=== PATIENT | female | born 1930 | race African-American/Black ===

== ENCOUNTER → 2016-09-26 | Emergency (ER) | payer OTHER ==
[~2016-09-26] MED LIST: ACETAMINOPHEN 325 MG TABLET (FP) ONE; ACETAMINOPHEN 325 MG TABLET (FP) PO ONE; DEXAMETHASONE SOD PHOSPHATE 10 MG/1 ML VIAL IM ONE; DEXAMETHASONE SOD PHOSPHATE 10 MG/1 ML VIAL IVPB ONE; DEXAMETHASONE SOD PHOSPHATE 10 MG/1 ML VIAL ONE; METOCLOPRAMIDE HCL INJECTION 10 MG/2 ML VIAL IVPB ONE; METOCLOPRAMIDE HCL INJECTION 10 MG/2 ML VIAL ONE; SODIUM CHLORIDE 1,000 ML IV SCH
--- NOTE | 2016-09-26 17:59 | PDOC ---
Rapid Medical Evaluation Time Seen by Provider: 09/26/16 17:59 Medical Evaluation: Allergies Allergy/AdvReac Type Severity Reaction Status Date / Time No Known Allergies Allergy Verified 06/09/16 18:07 09/26/16 18:00 Since 1PM today, pt has had headache and eye pain. She took no pain meds. History of CVA 3 years ago. HTN and DM. Lung cancer history, uterine cancer, afib. Pacemaker in place. She will be sent for CT head. She will be ordered tylenol. Her PMD is Mo Singleton.
[2016-09-26 18:03] VITALS: TEMP 98.6; BMI 20.3
--- NOTE | 2016-09-26 19:54 | PDOC ---
History of Present Illness - History of Present Illness Initial Comments: 09/26/16 20:03 The patient is an 86 year old female with a past medical hx of Afib (not on coumadin), Left CVA (residual deficits), hypertension (pacemaker), and uterine cancer (in remission) who presents to the ED complaining of a headache since 1300 this afternoon. The patient notes her headache is localized to the left side of her head. She reports she is having difficulty focusing her eyes. 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 The patient denies any fever, chills, diarrhea, vomiting, nausea. <Anusha Mendes - Last Filed: 09/26/16 22:25> <Estefany Garcia - Last Filed: 09/26/16 23:24> - General Chief Complaint: Headache Stated Complaint: PAIN Time Seen by Provider: 09/26/16 17:59 Past History <Anusha Mendes - Last Filed: 09/26/16 22:25> - Past Medical History Anemia: No Asthma: No Cancer: Yes (UTERINE CA S/P RT) Cardiac Disorders: Yes (AFIB, PPM) CVA: Yes (2013 NO RESIDUAL.) COPD: No CHF: No Dementia: No Diabetes: Yes HTN: Yes Seizures: No Thyroid Disease: No - Surgical History Cardiac Surgery: Yes (PACEMAKER) - Psycho/Social/Smoking Cessation Hx Anxiety: No Suicidal Ideation: No Smoking Status: No Smoking History: Never smoked Have you smoked in the past 12 months: No Number of Cigarettes Smoked Daily: 0 Information on smoking cessation initiated: No Hx Alcohol Use: No Drug/Substance Use Hx: No Substance Use Type: None Hx Substance Use Treatment: No <Estefany Garcia - Last Filed: 09/26/16 23:24> - Past Medical History Allergies/Adverse Reactions: Allergies Allergy/AdvReac Type Severity Reaction Status Date / Time No Known Allergies Allergy Verified 06/09/16 18:07 Home Medications: Ambulatory Orders Losartan Potassium 25 mg PO DAILY 07/31/14 Metformin HCl [Glucophage -] 250 mg PO DAILY 07/31/14 Warfarin Na [Coumadin -] 5 mg PO HS 07/31/14 Amlodipine Besylate [Norvasc -] 10 mg PO DAILY #30 tablet 06/12/16 Metoprolol Tartrate [Lopressor -] 12.5 mg PO BID #30 tablet 06/12/16 Docusate Sodium [Colace -] 100 mg PO BID PRN #0 capsule 06/13/16 Review of Systems - Review of Systems Able to Perform ROS?: Yes Comments:: 09/26/16 20:04 CONSTITUTIONAL: Absent: fever, chills, diaphoresis, generalized weakness, malaise, loss of appetite HEENT: +Difficulty focusing eyes. Absent: rhinorrhea, nasal congestion, throat pain, throat swelling, difficulty swallowing, mouth swelling, ear pain, eye pain CARDIOVASCULAR: Absent: chest pain, syncope, palpitations, irregular heart rate, lightheadedness , peripheral edema RESPIRATORY: Absent: cough, shortness of breath, dyspnea with exertion, orthopnea, wheezing, stridor, hemoptysis GASTROINTESTINAL: Absent: abdominal pain, abdominal distension, nausea, vomiting, diarrhea, constipation, melena, hematochezia GENITOURINARY: Absent: dysuria, frequency, urgency, hesitancy, hematuria, flank pain, genital pain MUSCULOSKELETAL: Absent: myalgia, arthralgia, joint swelling SKIN: Absent: rash, itching, pallor NEUROLOGIC: +Headache. Absent: focal weakness or paresthesias, dizziness, unsteady gait, seizure, mental status changes, bladder or bowel incontinence PSYCHIATRIC: Absent: anxiety, depression, suicidal or homicidal ideation, hallucinations. <Anusha Mendes - Last Filed: 09/26/16 22:25> *Physical Exam - Vital Signs Last Vital Signs Temp Pulse Resp BP Pulse Ox 98.6 F 82 18 156/72 98 09/26/16 17:58 09/26/16 17:58 09/26/16 17:58 09/26/16 17:58 09/26/16 17:58 - Physical Exam Comments: 09/26/16 20:06 Neuro GENERAL: Well developed, well nourished. Awake and alert. No acute distress. HEENT: +20/30 right eye exam, left eye 20/40. Normocephalic, atraumatic. PERRLA, EOMI. No conjunctival pallor. Sclera are non-icteric. Moist mucous membranes. Oropharynx is clear. NECK: Supple. Full ROM. No JVD. Carotid pulses 2+ and symmetric, without bruits. No thyromegaly. No lymphadenopathy. CARDIOVASCULAR: +Systolic murmur. Regular rate. No rubs, or gallops. Distal pulses are 2+ and symmetric. PULMONARY: No evidence of respiratory distress. Lungs clear to auscultation bilaterally. No wheezing, rales or rhonchi. ABDOMINAL: Soft. Non-tender. Non-distended. No rebound or guarding. No organomegaly. Normoactive bowel sounds. MUSCULOSKELETAL + 3/5 right leg weakness, right arm weakness. Normal range of motion at all joints. No bony deformities or tenderness. No CVA tenderness. EXTREMITIES: No cyanosis. No clubbing. No edema. No calf tenderness. SKIN: Warm and dry. Normal capillary refill. No rashes. No jaundice. NEUROLOGICAL: +Right arm contractor, right arm weakness, right leg weakness no resistance to gravity, motor strength in right arm and right leg deficits. Chronic facial droop. Alert, awake, appropriate. PSYCHIATRIC: Cooperative. Good eye contact. Appropriate mood and affect. <Anusha Mendes - Last Filed: 09/26/16 22:25> - Vital Signs Last Vital Signs Temp Pulse Resp BP Pulse Ox 98.6 F 82 18 156/72 98 09/26/16 17:58 09/26/16 17:58 09/26/16 17:58 09/26/16 17:58 09/26/16 17:58 <Estefany Garcia - Last Filed: 09/26/16 23:24> ED Treatment Course - LABORATORY CBC & Chemistry Diagram: 09/26/16 21:09 09/26/16 21:09 - RADIOLOGY Radiograph Interpretation: 09/26/16 20:48 CT scan of the brain without intravenous contrast. Since prior CT scan of the head dated 08/22/2013, there remains moderate atrophy and ventricular . Focal old infarct again seen in the left periventricular white matter. Moderate chronic microvascular ischemic changes are present. 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 Both orbits appear unremarkable. Visualized paranasal sinuses and mastoid air cells are well-aerated. The calvarium is intact. Calcification of the cavernous carotid arteries are present. Impression: No significant interval change or gross acute intracranial pathology is identified. 20 to determine further evaluation and follow-up. Reported By: Andre Farrar MD 09/26/16 1843 <Anusha Mendes - Last Filed: 09/26/16 22:25> - LABORATORY CBC & Chemistry Diagram: 09/26/16 21:09 09/26/16 21:09 <Estefany Garcia - Last Filed: 09/26/16 23:24> Medical Decision Making - Medical Decision Making 09/26/16 22:09 86 yo female came from home for left sided headache that started at 1 pm PMH significant for colon and lung cancer -she did not have a field cut,she did not loose her vision ,she did not have diplopia but said when she was reading the telephone book she had problems focuing -she has cva 3 years ago and has residual rt sided leg and arm weakness and facial droop -she has no new deficits today -DENIES any nausea,vomiting.,fever,chills,contusion , or new speech difficulties EYE EXAM OD 20/30 OS 20/40. No field cuts roberto carlos eomi NIHSS pt is alert,xox3 ,she has chronic rt sided leg and arm weakness chronic facial droop 09/26/16 22:22 cbc wnl esr is 22, normal chemistries calcium sightly elevated, normal kidney and liver function tests I spoke with Ulisses Morris who will follow this pt in the office tomorrow 09/26/16 22:33 09/26/16 23:23 <Estefany Garcia - Last Filed: 09/26/16 23:24> *DC/Admit/Observation/Transfer - Attestations Scribe Attestion: 09/26/16 20:06 Documentation prepared by Anusha Mendes, acting as medical assembly for Estefany Garcia MD/DO. <Anusha Mendes - Last Filed: 09/26/16 22:25> <Estefany Garcia - Last Filed: 09/26/16 23:24> Diagnosis at time of Disposition: Headache Qualifiers: Headache type: unspecified Headache chronicity pattern: unspecified pattern Intractability: not intractable Qualified Code(s): R51 - Headache - Discharge Dispostion Disposition: HOME Condition at time of disposition: Stable - Referrals Referrals: Cristina Singleton [Primary Care Provider] - - Patient Instructions Printed Discharge Instructions: DI for Headache Additional Instructions: please followup tomorrow with your doctor Also follow up with your eye doctor Return for any worsening symptoms
--- NOTE | 2016-09-26 19:56 | PDOC ---
NIH Stroke Scale - Last Known Well Date/Time & Onset Date Last Known Well: 09/26/16 Time Last Known Well: 13:00 - Initial Evaluation Level of consciousness: Alert Ask patient the month and their age: Answers both correctly Ask patient to open & close eyes; make fist and let go: Obeys both correctly Best gaze (horizontal eye movement): Normal Visual field testing: No visual field loss () Facial paresis (Show teeth/raise eyebrows/close eyes tight): Minor paralysis ( flattened nasolabial fold, asymmetry on smiling) Motor Function: Left Arm: Normal Motor Function: Right Arm: Normal (extends arm 90 (or 45) degrees for 10 seconds without drift Motor Function: Left Leg: Normal (extends leg 30 degrees for 5 seconds without drift) Motor Function: Right Leg: No effort against gravity Sensory(Use pinprick test arms,legs,trunk,face/side to side): Normal Best language (Describe picture, name items, read sentences): No Aphasia Dysarthria (read several words): Normal articulation Extinction and Inattention: No abnormality - Total Score NIH Stroke Scale Score: 4
[2016-09-26 21:35] LABS: MCH 28.8 pg (25.7-33.7); MEAN PLT VOLUME 9.2 fl (7.5-11.1); RDW 14.6 % (11.6-15.6); WHITE BLOOD COUNT 5.6 K/mm3 (4.0-10.0)
[2016-09-26 22:17] LABS: ALBUMIN 3.9 g/dl (3.4-5.0); BILIRUBIN,TOTAL 0.5 mg/dL (0.2-1.0); CALCIUM 11.2 mg/dL (8.5-10.1)
[2016-09-26 22:40] VITALS: BP 144/88; PULSE 88
[2016-09-27 00:06] LABS: PLATELET COMMENT2 NO CLOTTING DETECTED; PLATELET COUNT 126 K/MM3 (134-434); PLATELET ESTIMATE SLT DECREASED (NORMAL)
== END | disposition home or self-care (01) ==
LOC: JER 17:56
PROC: 3E033GC Introduction of Other Therapeutic Substance into Peripheral Vein, Percutaneous Approach (ICD-10-PCS; principal; 2016-09-26)
DX: R51 Headache (principal); I48.91 Unspecified atrial fibrillation; I10 Essential (primary) hypertension; Z95.0 Presence of cardiac pacemaker; Z85.42 Personal history of malignant neoplasm of other parts of uterus; Z79.84 Long term (current) use of oral hypoglycemic drugs
CPT/HCPCS: 36415; 70450-TC; 80053; 85025; 85651; 86140; 96374; 99282-25

== ENCOUNTER 2016-11-23 08:55 | Observation (INO) | payer OTHER ==
--- NOTE | 2016-11-23 10:17 | PDOC ---
History of Present Illness - General Chief Complaint: Pain Stated Complaint: PAIN, check pacemaker Time Seen by Provider: 11/23/16 09:32 History Source: Patient Exam Limitations: No Limitations - History of Present Illness Initial Comments: 11/23/16 10:14 86-year-old female presents the ED with complaints of heaviness to her left chest wall over her pacemaker site. Patient states pain began this morning at 3am which woke her up from her sleep and remains constant. Patient has no complaints of palpitations, nausea, diaphoresis, radiation of pain, weakness, recent change in meds, recent change in activity or recent injury. Patient states is followed by Dr. Black and had a pacemaker placed approximately 5 years ago. Presenting Symptoms: Chest Pain Timing/Duration: reports: constant Severity/Quality: reports: dull, pressure Location: reports: substernal Chest Pain Radiation: reports: no radiation Activities at Onset: reports: none Prior Chest Pain/Cardiac Workup: reports: Other (pacemaker) Aspirin Received prior to arrival (Core Measure): Yes: no aspirin today Associated Symptoms: Yes: Chest Pain/pressure Past History - Travel Traveled outside of the country in the last 30 days: No Close contact w/someone who was outside of country & ill: No - Past Medical History Allergies/Adverse Reactions: Allergies Allergy/AdvReac Type Severity Reaction Status Date / Time No Known Allergies Allergy Verified 11/23/16 09:10 Home Medications: Ambulatory Orders Losartan Potassium 25 mg PO DAILY 07/31/14 Amlodipine Besylate [Norvasc -] 10 mg PO DAILY #30 tablet 06/12/16 Metoprolol Tartrate [Lopressor -] 12.5 mg PO BID #30 tablet 06/12/16 Aspirin [ASA -] 81 mg PO DAILY 11/23/16 Linagliptin/Metformin HCl [Jentadueto 2.5 mg-1000 mg Tab] 0.5 tab PO DAILY 11/23 Anemia: No Asthma: No Cancer: Yes (UTERINE CA S/P RT) Cardiac Disorders: Yes (AFIB, PPM) CVA: Yes (2013 NO RESIDUAL.) COPD: No CHF: No Dementia: No Diabetes: Yes HTN: Yes Seizures: No Thyroid Disease: No - Surgical History Cardiac Surgery: Yes (PACEMAKER) - Psycho/Social/Smoking Cessation Hx Anxiety: No Suicidal Ideation: No Smoking Status: No Smoking History: Never smoked Have you smoked in the past 12 months: No Number of Cigarettes Smoked Daily: 0 Information on smoking cessation initiated: No Hx Alcohol Use: No Drug/Substance Use Hx: No Substance Use Type: None Hx Substance Use Treatment: No Patient Lives Alone: No Cardiac Specific PMH - Complaint Specific PMHX Pacemaker: Yes Review of Systems - Review of Systems Able to Perform ROS?: Yes Constitutional: No: Symptoms Reported HEENTM: No: Symptoms Reported Respiratory: No: Symptoms reported Cardiac (ROS): Yes: Chest Pain. No: Lightheadedness, Palpitations ABD/GI: No: Symptoms Reported : No: Symptoms Reported Musculoskeletal: No: Symptoms Reported Integumentary: No: Symptoms Reported Neurological: No: Symptoms reported Endocrine: No: Symptoms Reported Hematologic/Lymphatic: No: Symptoms Reported *Physical Exam - Vital Signs Last Vital Signs Temp Pulse Resp BP Pulse Ox 99.0 F 78 18 159/79 98 11/23/16 12:46 11/23/16 12:46 11/23/16 12:46 11/23/16 12:46 11/23/16 12:46 - Physical Exam General Appearance: Yes: Nourished, Appropriately Dressed. No: Apparent Distress HEENT: positive: TMs Normal, Pharynx Normal Neck: positive: Supple Respiratory/Chest: positive: Lungs Clear, Normal Breath Sounds. negative: Respiratory Distress, Accessory Muscle Use Cardiovascular: positive: Regular Rhythm, Regular Rate. negative: Murmur Gastrointestinal/Abdominal: positive: Soft. negative: Tenderness Extremity: positive: Normal Capillary Refill. negative: Pedal Edema Integumentary: positive: Normal Color, Warm, Moist Neurologic: positive: Motor Strength 5/5 (ambulatory) Heart Score/ECG Review - ECG Intrepretation Rhythm: Regular Rhythm (Ventricular paced at 87 no acute findings.) ED Treatment Course - LABORATORY CBC & Chemistry Diagram: 11/23/16 10:09 11/23/16 10:09 - ADDITIONAL ORDERS Additional order review: Laboratory Results 11/23/16 11/23/16 10:09 10:09 INR 1.21 H D Sodium 141 Potassium 4.4 Chloride 107 Carbon Dioxide 26 Anion Gap 8 BUN 19 H Creatinine 1.1 H Creat Clearance w eGFR 47.09 Random Glucose 186 H D Calcium 10.6 H Total Bilirubin 0.5 AST 17 ALT 13 Alkaline Phosphatase 87 Creatine Kinase 97 Troponin I < 0.02 B-Natriuretic Peptide 1396.16 H Total Protein 7.4 Albumin 3.6 11/23/16 10:09 RBC 4.01 MCV 90.6 MCHC 32.6 RDW 15.4 MPV 8.2 D Neutrophils % 73.4 Lymphocytes % 15.4 D Monocytes % 10.0 D Eosinophils % 0.3 D Basophils % 0.9 - RADIOLOGY Radiology Studies Ordered: Category Date Time Status CHEST X-RAY PORTABLE* [RAD] Stat Radiology 11/23/16 10:07 Completed Medical Decision Making - Medical Decision Making 11/23/16 10:21 Patient here with complaints of dull heaviness since 3 AM over her pacemaker. Patient with history of A. fib and is followed by Dr. Estelle White. Patient states has not had a pacemaker check since placed 5 years ago. Patient has [employer] card . RN will perform a PM check with bedside device. cardiac workup initiated. 11/23/16 12:29 Chest x-ray shows no acute pathology. Case discussed with Dr. Singleton and along with Dr. Morris who will admit to telemetry observation status. 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 Black. Nurse unable to locate bedside [employer] device Laboratory Tests 02/17/15 02/18/15 06/13/16 16:58 08:15 06:45 WBC 3.4 L D 3.8 L 3.9 L Hgb Hct Neutrophils % INR Sodium Potassium Chloride Carbon Dioxide Anion Gap BUN Creatinine Creat Clearance w eGFR Random Glucose Calcium AST ALT Alkaline Phosphatase Creatine Kinase Troponin I B-Natriuretic Peptide 11/23/16 11/23/16 11/23/16 10:09 10:09 10:09 WBC 3.4 L D Hgb 11.9 Hct 36.4 Neutrophils % 73.4 INR 1.21 H D Sodium 141 Potassium 4.4 Chloride 107 Carbon Dioxide 26 Anion Gap 8 BUN 19 H Creatinine 1.1 H Creat Clearance w eGFR 47.09 Random Glucose 186 H D Calcium 10.6 H AST 17 ALT 13 Alkaline Phosphatase 87 Creatine Kinase 97 Troponin I < 0.02 B-Natriuretic Peptide 1396.16 H 11/23/16 13:23 Dr. Urias here for consultation *DC/Admit/Observation/Transfer Diagnosis at time of Disposition: Pain in pacemaker pocket Chest pain Qualifiers: Chest pain type: unspecified Qualified Code(s): R07.9 - Chest pain, unspecified - Discharge Dispostion Admit: Yes - Referrals
[2016-11-23 10:33] LABS: BASOPHIL 0.9 % (0-2.0); EOSINOPHIL 0.3 % (0-4.5); MCH 29.6 pg (25.7-33.7); MCHC 32.6 g/dl (32.0-36.0); MEAN CELL VOLUME 90.6 fl (80-96); MEAN PLT VOLUME 8.2 fl (7.5-11.1); NEUTROPHILS 73.4 % (42.8-82.8); PLATELET COUNT 162 K/MM3 (134-434); RDW 15.4 % (11.6-15.6); WHITE BLOOD COUNT 3.4 K/mm3 (4.0-10.0)
[2016-11-23 11:00] LABS: INR 1.21 (0.82-1.09); PROTHROMBIN TIME (PATIENT) 13.4 SEC (9.98-11.88)
[2016-11-23 11:08] LABS: ALBUMIN 3.6 g/dl (3.4-5.0); ANION GAP 8 (8-16); BILIRUBIN,TOTAL 0.5 mg/dL (0.2-1.0); CALCIUM 10.6 mg/dL (8.5-10.1); CO2 26 mmol/L (21-32); COCKROFT - GAULT 33.575; CREATININE 1.1 mg/dL (0.55-1.02); GLUCOSE,RANDOM 186 mg/dL (74-106); SGPT/ALT 13 U/L (12-78); TOT PROT 7.4 g/dl (6.4-8.2)
[2016-11-23 11:14] LABS: ALK PHOS 87 U/L (45-117); SGOT/AST 17 U/L (15-37); TROPONIN I < 0.02 ng/ml (0.00-0.05)
--- NOTE | 2016-11-23 14:13 | CON.CARD ---
Consult Consult Specialty:: Cardiology Referred by:: ER Reason for Consultation:: Pain over ppm site - History of Present Illness Chief Complaint: pain over ppm site History of Present Illness: 86 year old woman with a h/o PAF, PPM, CVA, uterine Ca with vaginal bleeding presents to the ER with pain over her PPM site. Pt. states that she has been feeling well lately aside from chronic sob. she states that overnight last night she was woken up by sharp pain over her ppm site in her L upper chest. she states she continued to feel the pain this am and thus she came to the ER. Denies any other chest pain. denies any worsening of her chronic sob. no pnd or orthopnea. no sig LE edema. no lightheadedness, dizziness, syncope, or near syncope. 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 Cardio/Vascular: Yes: AFIB, HTN, Hyperlipdemia, Other (PPM) Pulmonary: Yes: Pulmonary Embolus Gastrointestinal: Yes: Cancer Renal/: Yes: Cancer (uterine cancer) Endocrine: Yes: Diabetes Mellitus - Past Surgical History Past Surgical History: Yes: Permanent Pacemaker - Alcohol/Substance Use Hx Alcohol Use: No - Smoking History Smoking history: Never smoked Have you smoked in the past 12 months: No Aproximately how many cigarettes per day: 0 - Social History Usual Living Arrangement: With Child ADL: Family Assistance History of Recent Travel: No Home Medications - Allergies Allergies/Adverse Reactions: Allergies Allergy/AdvReac Type Severity Reaction Status Date / Time No Known Allergies Allergy Verified 11/23/16 09:10 - Home Medications Home Medications: Ambulatory Orders Losartan Potassium 25 mg PO DAILY 07/31/14 Amlodipine Besylate [Norvasc -] 10 mg PO DAILY #30 tablet 06/12/16 Metoprolol Tartrate [Lopressor -] 12.5 mg PO BID #30 tablet 06/12/16 Aspirin [ASA -] 81 mg PO DAILY 11/23/16 Linagliptin/Metformin HCl [Jentadueto 2.5 mg-1000 mg Tab] 0.5 tab PO DAILY 11/23 Family Disease History - Family Disease History Family History: Denies Review of Systems - Review of Systems Constitutional: reports: Weakness. denies: No Symptoms, Chills, Diaphoresis, Fever, Lethargy, Loss of Appetite, Malaise, Night Sweats, Unintentional Wgt. Loss, Other Eyes: denies: No Symptoms, Blind Spots, Blurred Vision, Double Vision, Eye Pain , Floaters, Photophobia, Recent Change in Vision, Other HENT: denies: No Symptoms, Difficult Swallowing, Ear Discharge, Ear Pain, Epistaxis, Gingival Bleeding, Hearing Loss, Mouth Swelling, Nasal Congestion, Ocular Prosthesis, Throat Pain, Toothache, Ringing in Ears, Other Neck: denies: No Symptoms, Decreased ROM, Lumps, Pain on Movement, Stiffness, Swollen Glands, Tenderness, Other Cardiovascular: reports: Shortness of Breath, Other (pain over PPM site). denies: No Symptoms, Chest Pain, Edema, Palpitations Respiratory: reports: Exercise Intolerance, SOB, SOB on Exertion. denies: No Symptoms, Cough, Hemoptysis, Orthopnea, PND, Snoring, Wheezing, Other Gastrointestinal: denies: No Symptoms, Abdominal Pain, Bloating, Constipation, Diarrhea, Dysphagia, Indigestion, Melena, Nausea, Rectal Bleeding, Vomiting, Vomiting Blood, Other Genitourinary: denies: No Symptoms, Burning, Discharge, Dysuria, Flank Pain, Frequency, Hematuria, Incontinence, Lesions, Menses, Pain, Testicular Mass, Testicular Pain, Testicular Swelling, Urgency, Vaginal Bleeding, Other Breasts: denies: No Symptoms Reported, See HPI, Breast Implants, Discharge from Nipple, Lumps, Pain, Skin Changes, Other Musculoskeletal: denies: No Symptoms, Back Pain, Crepitus, Decreased ROM, Extremity Pain, Joint Pain, Joint Swelling, Muscle Pain, Muscle Cramps, Muscle Weakness, Other Integumentary: denies: No Symptoms, Blister, Bruising, Change in Color, Eczema, Erythema, Incision, Lesions, Lump, Pallor, Pruritis, Rash, Wound, Other Neurological: denies: No Symptoms, Change in LOC, Change in Speech, Confusion, Dizziness, Headache, Incoordination, Numbness, Parasthesia, Pre-Existing Deficit , Seizure, Syncope, Tremors, Unsteady Gait, Weakness, Other Endocrine: denies: No Symptoms, Excessive Sweating, Flushing, Increased Hunger, Increased Thirst, Intolerance to Cold, Intolerance to Heat, Unexplained Weight Gain, Unexplained Weight Loss, Other Hematology/Lymphatic: denies: No Symptoms, Easily Bruised, Excessive Bleeding, Swollen Glands, Other Psychiatric: denies: No Symptoms, Altered Sleep Pattern, Anxiety, Depression, Hallucinations, Panic, Paranoia, Suicidal, Other - Risk Factors Known Risk Factors: Yes: Age, Diabetes Mellitus, Hypercholesterolemia, Hypertension Vital Signs: Vital Signs Temperature 99.0 F 11/23/16 12:46 Pulse Rate 78 11/23/16 12:46 Respiratory Rate 18 11/23/16 12:46 Blood Pressure 159/79 11/23/16 12:46 O2 Sat by Pulse Oximetry (%) 98 11/23/16 12:46 Constitutional: Yes: Well Nourished, No Distress, Calm Eyes: Yes: WNL, Conjunctiva Clear, EOM Intact, PERRL HENT: Yes: WNL, Atraumatic, Normocephalic Neck: Yes: WNL, Supple, Trachea Midline Respiratory: Yes: Regular, Diminished. No: Rales, Rhonchi, Wheezes Gastrointestinal: Yes: WNL, Normal Bowel Sounds, Soft. No: Distention, Tenderness Renal/: Yes: WNL Cardiovascular: Yes: WNL, Regular Rate and Rhythm. No: Bradycardia, Tachycardia , Pulse Irregular, Gallop, Rub, Varicosities JVD: No Carotid Bruit: No PMI: Non-Displaced Heart Sounds: Yes: S1, S2. No: Split S2, S3, S4, Clicks, Gallop, Rub, Bruit Murmur: No: Systolic Murmur, Diastolic Murmur Musculoskeletal: Yes: WNL Extremities: Yes: WNL Edema: Yes Edema: LLE: Trace, RLE: Trace Peripheral Pulses WNL: Yes Peripheral Pulses: 2+ Left Doralis Pedis, 2+ Right Dorsalis Pedis Integumentary: Yes: WNL Neurological: Yes: WNL, Alert, Oriented ...Motor Strength: WNL Psychiatric: Yes: WNL, Alert, Oriented - Other Data Labs, Other Data: INR, PTT INR 1.21 (0.82-1.09) H D 11/23/16 10:09 EKG-AFib, Vpaced 87bpm Echo: Report Reviewed Imaging - Results Chest X-ray: Report Reviewed, Image Reviewed EKG: Report Reviewed, Image Reviewed Other: Report Reviewed, Image Reviewed Assessment/Plan 86 year old woman with a h/o PAF, PPM, CVA, uterine Ca with vaginal bleeding presents to the ER with pain over her PPM site. Pt. states that she has been feeling well lately aside from chronic sob. she states that overnight last night she was woken up by sharp pain over her ppm site in her L upper chest. she states she continued to feel the pain this am and thus she came to the ER. Denies any other chest pain. denies any worsening of her chronic sob. no pnd or orthopnea. no sig LE edema. no lightheadedness, dizziness, syncope, or near syncope. Pain over ppm site-unclear etiology -not present on palpation -possible that device shifted in her sleep and caused discomfort -should rule out ACS with serial cardiac enzymes, 1st set negative -telemetry monitoring -PPM was interrogated in office 08/2016, showed normal functioning -[facility] called to interrogate device in hospital to ensure normal functioning AFib-paroxysmal -no longer on coumadin due to vaginal bleeding -cont home ASA if tolerated
--- NOTE | 2016-11-23 15:25 | PDOC ---
*Physical Exam - Vital Signs Last Vital Signs Temp Pulse Resp BP Pulse Ox 99.0 F 78 18 159/79 98 11/23/16 12:46 11/23/16 12:46 11/23/16 12:46 11/23/16 12:46 11/23/16 12:46 ED Treatment Course - LABORATORY CBC & Chemistry Diagram: 11/23/16 10:09 11/23/16 10:09 - ADDITIONAL ORDERS Additional order review: Laboratory Results 11/23/16 11/23/16 10:09 10:09 INR 1.21 H D Sodium 141 Potassium 4.4 Chloride 107 Carbon Dioxide 26 Anion Gap 8 BUN 19 H Creatinine 1.1 H Creat Clearance w eGFR 47.09 Random Glucose 186 H D Calcium 10.6 H Total Bilirubin 0.5 AST 17 ALT 13 Alkaline Phosphatase 87 Creatine Kinase 97 Troponin I < 0.02 B-Natriuretic Peptide 1396.16 H Total Protein 7.4 Albumin 3.6 11/23/16 10:09 RBC 4.01 MCV 90.6 MCHC 32.6 RDW 15.4 MPV 8.2 D Neutrophils % 73.4 Lymphocytes % 15.4 D Monocytes % 10.0 D Eosinophils % 0.3 D Basophils % 0.9 Medical Decision Making - Medical Decision Making 11/23/16 15:21 86 yo F with h/o afib, chf pacer, here wtih c/o chest pain over pacemaker. states was short lasting pain awoke from sleep. denies pressure like feeling. no sob. no feve or chills. no leg pain or swelling. no noted palpitations. has not had in the past. on exam pt awake, NAD. CTAB no wheeze no crackles. heart RRR no m/r/g. no tenerness over pacer. abd soft nontender. skin warm and dry nuero awake alert non focal. ext wwp no edema. plan : differential angina, infection , dysrhymthia, pacer fired. plan cxr labs trop ekg and intterogate pacer. [facility] agree with plan and assessment by PA. frazier *DC/Admit/Observation/Transfer Diagnosis at time of Disposition: Pain in pacemaker pocket Chest pain Qualifiers: Chest pain type: unspecified Qualified Code(s): R07.9 - Chest pain, unspecified
[2016-11-23 16:23] VITALS: BMI 21.2
--- NOTE | 2016-11-23 17:22 | EKG ---
Test Reason : Blood Pressure : / mmHG Vent. Rate : 087 BPM Atrial Rate : 394 BPM P-R Int : 000 ms QRS Dur : 170 ms QT Int : 400 ms P-R-T Axes : 000 -71 102 degrees QTc Int : 481 ms POOR DATA QUALITY, INTERPRETATION MAY BE ADVERSELY AFFECTED Ventricular-paced rhythm WITH FREQUENT PREMATURE VENTRICULAR COMPLEXES ABNORMAL ECG WHEN COMPARED WITH ECG OF 09-JUN-2016 21:37, ELECTRONIC VENTRICULAR PACEMAKER HAS REPLACED SINUS RHYTHM Confirmed by DEFLIN VILLALTA MD ([id number]) on 11/23/2016 5:22:41 PM Referred By: Confirmed By:DELFIN VILLALTA MD
[2016-11-24 01:55] LABS: TROPONIN I 0.02 ng/ml (0.00-0.05)
[2016-11-24] MEDS: INSULIN SLIDING SCALE (NOVOLOG) 1 VIAL SQ SCH ×3 (06:06→16:58)
[2016-11-24 07:58] LABS: ALBUMIN 2.9 g/dl (3.4-5.0); BILIRUBIN,TOTAL 0.6 mg/dL (0.2-1.0); CALCIUM 10.2 mg/dL (8.5-10.1); COCKROFT - GAULT 36.975
[2016-11-24 08:02] LABS: TOT PROT 6.2 g/dl (6.4-8.2); TROPONIN I 0.02 ng/ml (0.00-0.05)
[2016-11-24 08:04] LABS: BASOPHIL 0.7 % (0-2.0); MCH 29.6 pg (25.7-33.7); MCHC 33.1 g/dl (32.0-36.0); MEAN CELL VOLUME 89.6 fl (80-96); NEUTROPHILS 60.4 % (42.8-82.8); PLATELET COUNT 147 K/MM3 (134-434); RDW 15.2 % (11.6-15.6); WHITE BLOOD COUNT 3.3 K/mm3 (4.0-10.0)
--- NOTE | 2016-11-24 09:26 | PN ---
Progress Note, Physician Chief Complaint: no distress feels well TELE: NSR; rare PVCs. intermittent pacing. - Current Medication List Current Medications: Active Medications Amlodipine Besylate (Norvasc -) 10 mg PO DAILY [facility] Aspirin (Asa -) 81 mg PO DAILY [facility] Heparin Sodium (Porcine) (Heparin -) 5,000 unit SQ BID [facility] Insulin Aspart (Novolog Vial Sliding Scale -) 1 vial SQ ACHS [facility] PRN Reason: Protocol Last Admin: 11/24/16 06:06 Dose: Not Given Losartan Potassium (Cozaar -) 25 mg PO DAILY [facility] Metformin HCl (Glucophage -) 500 mg PO ACBK [facility] Metoprolol Tartrate (Lopressor -) 12.5 mg PO BID [facility] Sitagliptin Phosphate (Januvia -) 25 mg PO DAILY@0700 [facility] - Objective Vital Signs: Vital Signs Temperature 99.1 F 11/24/16 05:44 Pulse Rate 72 11/24/16 05:44 Respiratory Rate 20 11/24/16 05:44 Blood Pressure 149/59 11/24/16 05:44 O2 Sat by Pulse Oximetry (%) 99 11/23/16 21:00 Constitutional: Yes: No Distress Cardiovascular: Yes: Regular Rate and Rhythm Respiratory: Yes: CTA Bilaterally Gastrointestinal: Yes: Soft Edema: No Neurological: Yes: Alert Labs: CBC, BMP 11/24/16 05:35 11/24/16 05:35 INR, PTT INR 1.21 (0.82-1.09) H D 11/23/16 10:09 Selected Entries 04/08/12 04/08/12 04/08/12 02:00 07:33 08:00 Pulse Rate 96 H 60 53 L Laboratory Tests 11/23/16 11/24/16 11/24/16 10:09 01:00 05:35 WBC 3.3 L Hgb 10.0 L D Plt Count 147 Troponin I < 0.02 0.02 11/24/16 05:35 WBC Hgb Plt Count Troponin I 0.02 - ....Imaging EKG: Image Reviewed Assessment/Plan Assessment/Plan 86 year old woman with a h/o PAF, PPM, CVA, uterine Ca with vaginal bleeding presents to the ER with pain over her PPM site. Pt. states that she has been feeling well lately aside from chronic sob. Admitted with atypical, musculoskeletal type chest discomfort. Pain over ppm site-resolved -cardiac enzymes negative -PPM was interrogated in office 08/2016, showed normal functioning -Don Sci called to interrogate device in hospital to ensure normal functioning AFib-paroxysmal -no longer on coumadin due to vaginal bleeding -cont home ASA if tolerated
[2016-11-24] MEDS ORDERED: HEPARIN NA (PORCINE) 5,000 UNITS/ML 1ML VIAL SQ SCH (10:00)
[2016-11-24] MEDS ORDERED: PATIENT'S OWN MEDICATION (NON-FORMULARY) (Linagliptin/Metformin Hcl [Jentadueto 2.5 Mg-100 PO SCH (10:00)
[2016-11-24] MEDS ORDERED: METOPROLOL TARTRATE 25 MG TABLET (FP) PO SCH (10:00)
[2016-11-24] MEDS ORDERED: LOSARTAN POTASSIUM 25 MG TABLET PO SCH (10:00)
[2016-11-24] MEDS ORDERED: ASPIRIN 81 MG CHEWABLE TABLETS PO SCH (10:00)
[2016-11-24] MEDS ORDERED: amLODIPine BESYLATE 10 MG TABLET (FP) PO SCH (10:00)
--- NOTE | 2016-11-24 14:17 | HP ---
Admitting History and Physical - Admission History of Present Illness: Pt is a 86 y/o female w/ PMH significant for PAF, PPM, CVA, uterine Ca with vaginal bleeding presents to the ER with pain over her PPM site. Pt. states that she has been feeling well lately aside from chronic sob. she states that overnight last night she was woken up by sharp pain over her ppm site in her L upper chest. she states she continued to feel the pain this am and thus she came to the ER. Denies any other chest pain. denies any worsening of her chronic sob. no pnd or orthopnea. no sig LE edema. no lightheadedness, dizziness , syncope, or near syncope. 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 Cardiovascular: Yes: AFIB, HTN, Hyperlipdemia, Other (PPM) Pulmonary: Yes: Pulmonary Embolus Gastrointestinal: Yes: Cancer Renal/: Yes: Cancer (uterine cancer) ...: No Endocrine: Yes: Diabetes Mellitus - Past Surgical History Past Surgical History: Yes: Permanent Pacemaker - Smoking History Smoking history: Never smoked Have you smoked in the past 12 months: No Aproximately how many cigarettes per day: 0 - Alcohol/Substance Use Hx Alcohol Use: No - Social History ADL: Family Assistance History of Recent Travel: No Home Medications - Allergies Allergies/Adverse Reactions: Allergies Allergy/AdvReac Type Severity Reaction Status Date / Time No Known Allergies Allergy Verified 11/23/16 09:10 - Home Medications Home Medications: Ambulatory Orders Losartan Potassium 25 mg PO DAILY 07/31/14 Amlodipine Besylate [Norvasc -] 10 mg PO DAILY #30 tablet 06/12/16 Metoprolol Tartrate [Lopressor -] 12.5 mg PO BID #30 tablet 06/12/16 Aspirin [ASA -] 81 mg PO DAILY 11/23/16 Linagliptin/Metformin HCl [Jentadueto 2.5 mg-1000 mg Tab] 0.5 tab PO DAILY 11/23 Family Disease History - Family Disease History Family History: Unremarkable Review of Systems - Review of Systems Constitutional: reports: No Symptoms Eyes: reports: No Symptoms HENT: reports: No Symptoms Neck: reports: No Symptoms Cardiovascular: reports: Chest Pain, Shortness of Breath Respiratory: reports: SOB Gastrointestinal: reports: No Symptoms Genitourinary: reports: No Symptoms Physical Examination Vital Signs: Vital Signs Temperature 99 F 11/24/16 10:00 Pulse Rate 62 11/24/16 10:00 Respiratory Rate 20 11/24/16 10:00 Blood Pressure 147/62 11/24/16 10:00 O2 Sat by Pulse Oximetry (%) 99 11/24/16 10:00 Constitutional: Yes: Well Nourished Eyes: Yes: WNL HENT: Yes: WNL Neck: Yes: Supple Cardiovascular: Yes: WNL, Regular Rate and Rhythm Respiratory: Yes: WNL, Regular, CTA Bilaterally Gastrointestinal: Yes: WNL, Normal Bowel Sounds, Soft Breast(s): Yes: WNL Musculoskeletal: Yes: Other ((+) pain over palpation Lt ant chest wall) Edema: No Neurological: Yes: WNL, Alert, Oriented ...Motor Strength: WNL Labs: CBC, BMP 11/24/16 05:35 11/24/16 05:35 Problem List - Problems (1) Chest pain Assessment/Plan: Probably muscular skeletal Trend CPK/troponin Monitor on tele Cardio consult Code(s): R07.9 - CHEST PAIN, UNSPECIFIED Qualifiers: Chest pain type: unspecified Qualified Code(s): R07.9 - Chest pain, unspecified (2) Hypertension Assessment/Plan: BP stable Code(s): I10 - ESSENTIAL (PRIMARY) HYPERTENSION (3) Afib Assessment/Plan: Pt not on AC due to vaginal bleeding heart rate stable Code(s): I48.91 - UNSPECIFIED ATRIAL FIBRILLATION
[2016-11-24 14:54] VITALS: BP 129/54; PULSE 64; TEMP 98.5
[2016-11-25] MEDS ORDERED: metFORMIN HCL 500 MG TABLET (FP) PO SCH (07:00)
[2016-11-25] MEDS ORDERED: sitaGLIPtin PHOSPHATE 25 MG TABLET (FP) PO SCH (07:00)
== END 2016-11-24 18:34 | disposition home or self-care (01) ==
LOC: JER 08:55 → JERBED 12:30 → J4W 16:55 → OBSVTOIN 11-24 00:32 → INTOOBSV 11-24 00:32
PROVIDERS: ADMIT Internal Medicine; ATTEND Internal Medicine
DX: R07.89 Other chest pain (principal); I10 Essential (primary) hypertension; I48.0 Paroxysmal atrial fibrillation; Z95.0 Presence of cardiac pacemaker; E11.9 Type 2 diabetes mellitus without complications; E78.5 Hyperlipidemia, unspecified; Z86.73 Personal history of transient ischemic attack (TIA), and cerebral infarction without residual deficits; Z85.42 Personal history of malignant neoplasm of other parts of uterus; Z79.82 Long term (current) use of aspirin; Z86.711 Personal history of pulmonary embolism
CPT/HCPCS: 36415; 71010-TC; 80053; 82550; 83880; 84484; 85025; 85610; 93005; 93010; 99285-25; G0378

== ENCOUNTER 2017-01-04 17:19 | Emergency (ER) | payer OTHER ==
[2017-01-04 17:29] VITALS: BP 135/70; PULSE 102; TEMP 99; BMI 24.6
== END 2017-01-04 19:38 | disposition left against medical advice (07) ==
LOC: JER 17:19
DX: Z53.21 Procedure and treatment not carried out due to patient leaving prior to being seen by health care provider (principal)
CPT/HCPCS: 99281-25

== ENCOUNTER 2017-01-04 18:54 | Inpatient (IN) | payer OTHER ==
--- NOTE | 2017-01-04 19:05 | PDOC ---
History of Present Illness - General Chief Complaint: Pain Stated Complaint: RIGHT ABDOMEN/ CHEST PAIN Time Seen by Provider: 01/04/17 19:02 History Source: Patient Exam Limitations: No Limitations - History of Present Illness Initial Comments: 01/04/17 19:20 This is an elderly 86-year-old female who has history significant for lung cancer. Patient comes in complaining of the pain in her right lower chest area. Patient said she does not have pain except for when she coughs or takes a deep breath. Patient said this is new times the last couple weeks. Patient has not taken anything for the pain. Patient denies history of similar pain in the past. Patient said that she is been a little more short of breath than usual. Patient denies any fevers or chills. Patient said when she coughs she does not cough up anything. PAST MEDICAL HISTORY: Hypertension, high cholesterol PAST SURGICAL HISTORY: no significant history FAMILY HISTORY: no pertinant history SOCIAL HISTORY: Pt lives with family and is retired MEDICATIONS: reviewed ALLERGIES: As per nursing notes Review of Systems General: No fevers or chills, no weakness, no weight loss HEENT: No change in vision. No sore throat,. No ear pain CardioVascular: Pleuritic type chest pain with some mild shortness of breath Respiratory:No cough, or wheezing. Gastrointestinal: no nausea, vomitting, diarrhea or constipation, No rectal bleeding Genitourinary: No dysuria, hematuria, or frequency Musculoskeletal: No joint or muscle pain or swelling Neurologic: No headache, vertigo, dizziness or loss of consciousness Psychiatric: nor depression Skin: No rashes or easy bruising Endocrine: no increased thirst or abnormal weight change Allergic: no skin or latex allergy All other systems reviewed and normal Exam: General: Well-nourished well-developed individual, no acute distress HEENT: Throat: Normal, tonsils normal, no erythema or exudate Neck: Supple, no meningeal signs, no lymphadenopathy Eyes::Pupils equal reactive and round, extraocular motion intact Chest: Nontender to palpation Cardiac: S1-S2 normal, regular rate and rhythm, no murmurs rubs or gallops Respiratory: Lungs clear to auscultation bilateral, pain is not reproduced on palpation of the anterior chest wall or upper abdominal area. Abdomen: Soft, nondistended, normal bowel sounds, nontender to palpation diffusely Extremities: Warm, dry, no cyanosis, clubbing, or edema Skin: No rashes Neuro: Alert and oriented x3, nonfocal exam, grossly intact, normal gait Psych: Normal mood and affect EKG: Showes atrial fibrillation at a rate of 85, The atrial fibrillation does appear to be new from prior cardiogram of November 2016. Otherwise there is some T- wave abnormalities that are unchanged from prior cardiogram Chest x-ray right lower lobe pleural effusion CT scan shows pulmonary embolism of the right main artery as well as the lower branches of the right main artery and a area of consolidation in the right lower lobe. Also bilateral pulmonary masses. Assessment and plan: This is a 6 her old female with right-sided pleuritic type chest pain. Patient had a workup that was positive for pulmonary embolism of the right main artery as well as some of the lower branches. Patient started on Lovenox and also given ceftriaxone for the right lower lobe consolidation. Patient admitted to an inpatient bed. Noncardiac telemetry Past History - Past Medical History Allergies/Adverse Reactions: Allergies Allergy/AdvReac Type Severity Reaction Status Date / Time No Known Allergies Allergy Verified 01/04/17 17:27 Home Medications: Ambulatory Orders Losartan Potassium 25 mg PO DAILY 07/31/14 Aspirin [ASA -] 81 mg PO DAILY 11/23/16 Linagliptin/Metformin HCl [Jentadueto 2.5 mg-1000 mg Tab] 0.5 tab PO DAILY 11/23 Amlodipine Besylate [Norvasc -] 5 mg PO DAILY 01/04/17 Metoprolol Succinate [Toprol Xl -] 25 mg PO DAILY 01/04/17 Anemia: No Asthma: No Cancer: Yes (UTERINE CA S/P RT, lung) Cardiac Disorders: Yes (AFIB, PPM) CVA: Yes (2013 NO RESIDUAL.) COPD: No CHF: No Dementia: No Diabetes: Yes HTN: Yes Seizures: No Thyroid Disease: No - Surgical History Cardiac Surgery: Yes (PACEMAKER) - Psycho/Social/Smoking Cessation Hx Anxiety: No Suicidal Ideation: No Smoking Status: No Smoking History: Never smoked Have you smoked in the past 12 months: No Number of Cigarettes Smoked Daily: 0 Hx Alcohol Use: No Drug/Substance Use Hx: No Substance Use Type: None Hx Substance Use Treatment: No ED Treatment Course - LABORATORY CBC & Chemistry Diagram: 01/04/17 19:15 01/04/17 19:15 *DC/Admit/Observation/Transfer Diagnosis at time of Disposition: Pulmonary embolism Qualifiers: Pulmonary embolism type: other Chronicity: acute Acute cor pulmonale presence: without acute cor pulmonale Qualified Code(s): I26.99 - Other pulmonary embolism without acute cor pulmonale - Discharge Dispostion Condition at time of disposition: Good Admit: Yes
[2017-01-04 19:17] VITALS: BMI 24.6
[2017-01-04] MEDS ORDERED: ACETAMINOPHEN 1000 MG/100 ML VIAL (NON FORMULARY) IVPB ONE (19:34)
[2017-01-04] MEDS ORDERED: SODIUM CHLORIDE 500 ML IV STA (19:34)
[2017-01-04] MEDS ORDERED: ACETAMINOPHEN INJECTION 100 ML IVPB ONE (19:46)
[2017-01-04 19:49] LABS: MCH 29.5 pg (25.7-33.7); MCHC 32.5 g/dl (32.0-36.0); MEAN PLT VOLUME 8.5 fl (7.5-11.1)
[2017-01-04 19:54] LABS: BASOPHIL 1.4 % (0-2.0); MEAN CELL VOLUME 90.6 fl (80-96); NEUTROPHILS 84.2 % (42.8-82.8); PLATELET COUNT 180 K/MM3 (134-434); RDW 13.4 % (11.6-15.6); WHITE BLOOD COUNT 7.3 K/mm3 (4.0-10.8)
[2017-01-04 20:02] LABS: CPK(DFH) 38 IU/L (26-140)
[2017-01-04 20:03] LABS: ALBUMIN 3.7 g/dl (3.5-5.0); ALK PHOS 80 U/L (32-92); ANION GAP 11 (8-16); BILIRUBIN,TOTAL 1.2 mg/dl (0.2-1.0); CALCIUM 10.9 mg/dl (8.4-10.2); CO2 23 mmol/L (22-28); GLUCOSE,RANDOM 269 mg/dl (74-106); SGOT/AST 21 U/L (10-42); SGPT/ALT 16 U/L (10-40); TOT PROT 8.1 g/dl (6.4-8.3)
[2017-01-04 21:50] LABS: TROPONIN I (DFP) < 0.03 ng/ml (0.03-0.50)
[2017-01-04] MEDS ORDERED: INSULIN REGULAR HUMAN 100 UNITS/ML *VIAL IVPUSH ONE (22:40)
[2017-01-04] MEDS ORDERED: INSULIN REGULAR HUMAN 100 UNITS/ML *VIAL ONE (22:41)
[2017-01-04] MEDS ORDERED: HEMOQUE TEST 1 EACH EACH ONE (23:52)
[2017-01-05] MEDS ORDERED: ENOXAPARIN NA (PORCINE) 60 MG/0.6 ML DISP.SYRIN SQ STA (00:09)
[2017-01-05] MEDS ORDERED: cefTRIAXone SODIUM 1 GM VIAL ONE (00:11)
[2017-01-05] MEDS ORDERED: ENOXAPARIN NA (PORCINE) 60 MG/0.6 ML DISP.SYRIN SQ ONE (00:12)
--- NOTE | 2017-01-05 14:39 | CON.CARD ---
Cardiology Consult (text) - Consultation Consultation Note: Cardiology Consultation Ms. Caceres is known to me from office. 86F with uterine CA (treated at [facility]), permanent AF s/p PPM, prior CVA, DM, prior PE, HTN taken off warfarin several months ago for ongoing uterine bleeding- placed on aspirin. Now presents to [place] with chest pain and several days of increased ERGAN and exertional fatigue. CTA done after D-dimer found to be elevated, showed pulmonary embolism. 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 ALL: NKDA MEDS: ASA, Toprol 25, Losartan 25 (Cardiac) FH: non-contributory SH: Non- Smoker, lives with family. Mild Dementia. TELE: AF with intermittent V-pacing. Labs reviewed. D-dimer markedly elevated. Other labs generally WNL. Laboratory Tests 01/04/17 01/04/17 01/04/17 19:15 19:15 19:15 WBC 7.3 Hgb 11.7 Hct 36.1 Plt Count 180 D-Dimer > 5000 H Sodium 136 Potassium 4.4 BUN 20 H Creatinine 1.0 Creat Clearance w eGFR 52.57 AST 21 ALT 16 Creatine Kinase Troponin I 01/04/17 19:15 WBC Hgb Hct Plt Count D-Dimer Sodium Potassium BUN Creatinine Creat Clearance w eGFR AST ALT Creatine Kinase 38 Troponin I < 0.03 L CTA report and images reviewed. Physical Exam: Alert, no distress BP: 130/70 P: 86, paced. O2: 100% 2LNC Neck: No JVP, no bruits. CV: S1,2. RRR. NO murmurs. Chest: CTA b/l, no wheezing or rales. Abd: soft, nt. No rebound or guarding. 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 UFH gtts 2. Vascular Consult, may need IVC filter 3. Echo 4. LE Venous Duplex 5. Toprol for rate control
[2017-01-05] MEDS ORDERED: HEPARIN INFUSION - 500 ML IVPB ONE (14:43)
[2017-01-05] MEDS ORDERED: METOPROLOL SUCCINATE 25 MG TAB.SR.24H (FP) ONE (14:43)
[2017-01-05] MEDS: HEPARIN - 25,000 UNIT in SODIUM CHLORIDE 495 ML IV SCH ×2 (15:03→23:43)
[2017-01-05] MEDS: METOPROLOL SUCCINATE 25 MG TAB.SR.24H (FP) PO SCH (15:04)
--- NOTE | 2017-01-05 16:18 | CONSULT ---
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 Cardio/Vascular: Yes: AFIB, HTN, Hyperlipdemia, Other (PPM) Pulmonary: Yes: Pulmonary Embolus Gastrointestinal: Yes: Cancer Renal/: Yes: Cancer (uterine cancer) Endocrine: Yes: Diabetes Mellitus - Past Surgical History Past Surgical History: Yes: Permanent Pacemaker - Alcohol/Substance Use Hx Alcohol Use: No - Smoking History Smoking history: Never smoked Have you smoked in the past 12 months: No Aproximately how many cigarettes per day: 0 - Social History Usual Living Arrangement: With Child ADL: Family Assistance History of Recent Travel: No Home Medications - Allergies Allergies/Adverse Reactions: Allergies Allergy/AdvReac Type Severity Reaction Status Date / Time No Known Allergies Allergy Verified 01/04/17 17:27 - Home Medications Home Medications: Ambulatory Orders Losartan Potassium 25 mg PO DAILY 07/31/14 Aspirin [ASA -] 81 mg PO DAILY 11/23/16 Linagliptin/Metformin HCl [Jentadueto 2.5 mg-1000 mg Tab] 0.5 tab PO DAILY 11/23 Amlodipine Besylate [Norvasc -] 5 mg PO DAILY 01/04/17 Metoprolol Succinate [Toprol Xl -] 25 mg PO DAILY 01/04/17 Physical Exam Vital Signs: Vital Signs Temperature 98.5 F 01/05/17 14:00 Pulse Rate 100 H 01/05/17 14:00 Respiratory Rate 18 01/05/17 14:00 Blood Pressure 131/72 01/05/17 14:00 O2 Sat by Pulse Oximetry (%) 100 01/05/17 12:41 Assessment/Plan Vascular Surgery Ms. Caceres is known to me from office. 86F with uterine CA (treated at [facility]), permanent AF s/p PPM, prior CVA, DM, prior PE, HTN taken off warfarin several months ago for ongoing uterine bleeding- placed on aspirin. Now presents to [place] with chest pain and several days of increased REGAN and exertional fatigue. CTA done after D-dimer found to be elevated, showed pulmonary embolism. 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 ALL: NKDA MEDS: ASA, Toprol 25, Losartan 25 (Cardiac) FH: non-contributory SH: Non- Smoker, lives with family. Mild Dementia. TELE: AF with intermittent V-pacing. PE Head - NC/AT Lung - CTa Heart - RRR abd - soft,nt,nd ext - warm, pink A/P Pt with uterine cancer with mets. Now comes in SOB with PE Pt was on warfarin for prior PE, then stopped for uterine bleeding. If pt cannot be anticoagulated due to bleeding risk, will need IVC filter. Can place on sunday. Pj Meek DO
--- NOTE | 2017-01-05 16:23 | CON.PULM ---
Consult Consult Specialty:: PULM/CCM Referred by:: JAGRUTI Reason for Consultation:: PE - History of Present Illness Chief Complaint: Abdominal discomfort / SOB History of Present Illness: 86 F, with listed previous medical history. Known history of uterine CA ( treated at [facility]), permanent AFib, s/p PPM, prior CVA, DM, HTN, and prior PE on Coumadin. She was taken off AC due to ongoing vaginal bleeding while on AC. Admitted due to discomfort in the right lower chest/abdomen. No travel history or sick contacts. No fever or chills. No hemoptysis. (+) chest discomfort with cough or taking a deep breath. 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 Cardio/Vascular: Yes: AFIB, HTN, Hyperlipdemia, Other (PPM) Pulmonary: Yes: Pulmonary Embolus Gastrointestinal: Yes: Cancer Renal/: Yes: Cancer (uterine cancer) Endocrine: Yes: Diabetes Mellitus - Past Surgical History Past Surgical History: Yes: Permanent Pacemaker - Alcohol/Substance Use Hx Alcohol Use: No - Smoking History Smoking history: Never smoked Have you smoked in the past 12 months: No Aproximately how many cigarettes per day: 0 - Social History Usual Living Arrangement: With Child ADL: Family Assistance History of Recent Travel: No Home Medications - Allergies Allergies/Adverse Reactions: Allergies Allergy/AdvReac Type Severity Reaction Status Date / Time No Known Allergies Allergy Verified 01/04/17 17:27 - Home Medications Home Medications: Ambulatory Orders Losartan Potassium 25 mg PO DAILY 07/31/14 Aspirin [ASA -] 81 mg PO DAILY 11/23/16 Linagliptin/Metformin HCl [Jentadueto 2.5 mg-1000 mg Tab] 0.5 tab PO DAILY 11/23 Amlodipine Besylate [Norvasc -] 5 mg PO DAILY 01/04/17 Metoprolol Succinate [Toprol Xl -] 25 mg PO DAILY 01/04/17 Review of Systems - Review of Systems Constitutional: denies: Chills, Fever, Night Sweats, Unintentional Wgt. Loss Eyes: reports: No Symptoms HENT: reports: No Symptoms Neck: reports: No Symptoms Cardiovascular: reports: Chest Pain, Shortness of Breath. denies: Edema, Palpitations Respiratory: reports: Cough. denies: Hemoptysis, SOB, SOB on Exertion, Wheezing Gastrointestinal: reports: No Symptoms Genitourinary: reports: No Symptoms Breasts: reports: No Symptoms Reported Musculoskeletal: reports: No Symptoms Integumentary: reports: No Symptoms Neurological: reports: No Symptoms Endocrine: reports: No Symptoms Hematology/Lymphatic: reports: No Symptoms Psychiatric: reports: No Symptoms Physical Exam Vital Sings: Vital Signs Temperature 98.5 F 01/05/17 14:00 Pulse Rate 100 H 01/05/17 14:00 Respiratory Rate 18 01/05/17 14:00 Blood Pressure 131/72 01/05/17 14:00 O2 Sat by Pulse Oximetry (%) 100 01/05/17 12:41 Constitutional: Yes: No Distress, Calm Eyes: Yes: Conjunctiva Clear, EOM Intact HENT: Yes: Atraumatic, Normocephalic Neck: Yes: Supple, Trachea Midline Cardiovascular: Yes: Regular Rate and Rhythm Respiratory: Yes: Cough, Diminished, On Nasal O2, Rhonchi. No: Accessory Muscle Use, Rales, Stridor, Tachypnea, Wheezes ...Inspection: Yes: WNL ...Clubbing: No Gastrointestinal: Yes: Normal Bowel Sounds, Soft Musculoskeletal: Yes: WNL Extremities: Yes: WNL Edema: No Peripheral Pulses WNL: Yes Integumentary: Yes: WNL Neurological: Yes: WNL, Alert, Oriented ...Motor Strength: WNL Psychiatric: Yes: WNL, Alert, Oriented Imaging - Results Chest X-ray: Report Reviewed, Image Reviewed Cat Scan: Report Reviewed, Image Reviewed (Right Pulmonary Embolism / (?) early infarct / atelectasis) Problem List - Problems (1) Pulmonary embolism Code(s): I26.99 - OTHER PULMONARY EMBOLISM WITHOUT ACUTE COR PULMONALE Qualifiers: Pulmonary embolism type: other Chronicity: acute Acute cor pulmonale presence: without acute cor pulmonale Qualified Code(s): I26.99 - Other pulmonary embolism without acute cor pulmonale (2) Abnormal vaginal bleeding Code(s): N93.9 - ABNORMAL UTERINE AND VAGINAL BLEEDING, UNSPECIFIED (3) Afib Code(s): I48.91 - UNSPECIFIED ATRIAL FIBRILLATION (4) CVA (cerebral infarction) Code(s): I63.9 - CEREBRAL INFARCTION, UNSPECIFIED (5) Chest pain Code(s): R07.9 - CHEST PAIN, UNSPECIFIED Qualifiers: Chest pain type: unspecified Qualified Code(s): R07.9 - Chest pain, unspecified (6) Diabetes Code(s): E11.9 - TYPE 2 DIABETES MELLITUS WITHOUT COMPLICATIONS (7) Hypertension Code(s): I10 - ESSENTIAL (PRIMARY) HYPERTENSION (8) Metastasis Code(s): C79.9 - SECONDARY MALIGNANT NEOPLASM OF UNSPECIFIED SITE Qualifiers: Area of secondary neoplastic involvement: respiratory structure Respiratory structure secondary neoplasm location: metastatic to lung Laterality: unspecified laterality Qualified Code(s): C78.00 - Secondary malignant neoplasm of unspecified lung (9) Shortness of breath Code(s): R06.02 - SHORTNESS OF BREATH (10) Uterine cancer Code(s): C55 - MALIGNANT NEOPLASM OF UTERUS, PART UNSPECIFIED Assessment/Plan IV Heparin Needs STAT ECHO Ideally if bleeding is minimal and H&H stable -> LMWH due to malignant process Vascular consult -> Assessment for IVC Filter O2 as needed Would monitor off ABX Follow H&H Normal transfusion thresholds Will follow. Thank you. Dr Alex
[2017-01-05] MEDS ORDERED: HEPARIN NA (PORCINE) 5,000 UNITS/ML 1ML VIAL ONE (21:38)
--- NOTE | 2017-01-05 22:52 | HP ---
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: CVA Cardiovascular: Yes: AFIB, HTN, Hyperlipdemia, Other (PPM) Pulmonary: Yes: Pulmonary Embolus Gastrointestinal: Yes: Cancer Renal/: Yes: Cancer (uterine cancer) Endocrine: Yes: Diabetes Mellitus - Past Surgical History Past Surgical History: Yes: Permanent Pacemaker - Smoking History Smoking history: Never smoked Have you smoked in the past 12 months: No Aproximately how many cigarettes per day: 0 - Alcohol/Substance Use Hx Alcohol Use: No - Social History ADL: Family Assistance History of Recent Travel: No Home Medications - Allergies Allergies/Adverse Reactions: Allergies Allergy/AdvReac Type Severity Reaction Status Date / Time No Known Allergies Allergy Verified 01/04/17 17:27 - Home Medications Home Medications: Ambulatory Orders Losartan Potassium 25 mg PO DAILY 07/31/14 Aspirin [ASA -] 81 mg PO DAILY 11/23/16 Linagliptin/Metformin HCl [Jentadueto 2.5 mg-1000 mg Tab] 0.5 tab PO DAILY 11/23 Amlodipine Besylate [Norvasc -] 5 mg PO DAILY 01/04/17 Metoprolol Succinate [Toprol Xl -] 25 mg PO DAILY 01/04/17 Physical Examination Vital Signs: Vital Signs Temperature 98.0 F 01/05/17 14:30 Pulse Rate 90 01/05/17 14:30 Respiratory Rate 18 01/05/17 14:30 Blood Pressure 131/72 01/05/17 14:30 O2 Sat by Pulse Oximetry (%) 100 01/05/17 14:30
[2017-01-05] MEDS ORDERED: HEPARIN NA (PORCINE) 5,000 UNITS/ML 1ML VIAL IVPUSH PRN ×2 (23:33)
[2017-01-06] MEDS: INSULIN SLIDING SCALE (NOVOLOG) 1 VIAL SQ SCH ×4 (06:12→23:01)
[2017-01-06 07:32] LABS: ANION GAP 14 (8-16); CALCIUM 9.9 mg/dL (8.5-10.1); CO2 21 mmol/L (21-32); GLUCOSE,RANDOM 202 mg/dL (74-106); MAGNESIUM 1.8 mg/dL (1.8-2.4)
[2017-01-06 07:34] LABS: CREATININE 0.8 mg/dL (0.55-1.02)
[2017-01-06 07:38] LABS: BASOPHIL 0.4 % (0-2.0); EOSINOPHIL 0.2 % (0-4.5); MCH 29.6 pg (25.7-33.7); MCHC 32.5 g/dl (32.0-36.0); MEAN CELL VOLUME 91.1 fl (80-96); MEAN PLT VOLUME 9.4 fl (7.5-11.1); PLATELET COUNT 194 K/MM3 (134-434); RDW 13.9 % (11.6-15.6); WHITE BLOOD COUNT 6.1 K/mm3 (4.0-10.0)
[2017-01-06] MEDS: metFORMIN HCL 500 MG TABLET (FP) PO SCH (08:06)
[2017-01-06] MEDS: sitaGLIPtin PHOSPHATE 50 MG TABLET PO SCH (08:06)
[2017-01-06] MEDS ORDERED: ONDANSETRON 4 MG/2 ML VIAL IVPB PRN (08:35)
--- NOTE | 2017-01-06 08:35 | PN ---
Progress Note, Physician Chief Complaint: reported vomiting of small amount of "coffee grounds" by RN She feels "tired" TELE: AF with intermittent V-pacing History of Present Illness: I read her echo yesterday- normal LV/RV. RVSP minimally elevated in the 30s-- official report to be scanned - Current Medication List Current Medications: Active Medications Heparin Sodium (Porcine) (Heparin -) 5,000 unit IVPUSH PRN PRN Heparin Sodium (Porcine) (Heparin -) 1,000 unit IVPUSH PRN PRN Last Admin: 01/05/17 23:36 Dose: 1,000 unit Heparin Sodium (Porcine) 25, (000 unit/ Sodium Chloride) 500 mls @ 20 mls/hr IV TITR RICK; 1,000 UNIT/HR PRN Reason: Protocol Last Admin: 01/05/17 23:43 Dose: 22 mls/hr Insulin Aspart (Novolog Vial Sliding Scale -) 1 vial SQ ACHS RICK PRN Reason: Protocol Last Admin: 01/06/17 06:12 Dose: 2 units Losartan Potassium (Cozaar -) 25 mg PO DAILY RICK Metformin HCl (Glucophage -) 1,000 mg PO DAILY@0700 [facility] Last Admin: 01/06/17 08:06 Dose: Not Given Metoprolol Succinate (Toprol Xl -) 25 mg PO DAILY [facility] Last Admin: 01/05/17 15:04 Dose: 25 mg Sitagliptin Phosphate (Januvia -) 50 mg PO DAILY@0700 [facility] Last Admin: 01/06/17 08:06 Dose: Not Given - Objective Vital Signs: Vital Signs Temperature 98 F 01/06/17 02:00 Pulse Rate 88 01/06/17 02:00 Respiratory Rate 18 01/06/17 02:00 Blood Pressure 137/64 01/06/17 02:00 O2 Sat by Pulse Oximetry (%) 100 01/05/17 22:00 Constitutional: Yes: No Distress Eyes: Yes: Conjunctiva Clear Cardiovascular: Yes: Pulse Irregular Respiratory: Yes: CTA Bilaterally Gastrointestinal: Yes: Soft Edema: No Neurological: Yes: Alert Labs: CBC, BMP 01/06/17 05:20 01/06/17 05:20 Laboratory Tests 01/06/17 01/06/17 01/06/17 05:20 05:20 05:20 WBC 6.1 D Hgb 10.1 L Plt Count 194 D PTT (Actin FS) 57.7 H D Potassium 3.9 Creatinine 0.8 - ....Imaging EKG: Image Reviewed Assessment/Plan IMP: Acute pulmonary embolism History 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 UFH gtts on hold for 2 hours. Would try to resume at lower rate in 1-2 hours. Start PPI, GI consult. 2. Vascular Consult, may need IVC filter. Will consult with Heme as well. No DVT on US. 3. Echo done yesterday, no sig PHTN. 4. Toprol for rate control
[2017-01-06] MEDS ORDERED: PANTOPRAZOLE SODIUM 100 ML IVPB SCH (10:00)
[2017-01-06] MEDS: HEPARIN - 25,000 UNIT in SODIUM CHLORIDE 495 ML IV SCH (10:00)
--- NOTE | 2017-01-06 10:02 | PN ---
Progress Note, Physician History of Present Illness: PULMONARY ALERT,-RESP DISTRESS,+ COFFEE GROUND EMESIS,MIN VAGINAL BLEEDING ,HEPARIN HELD FOR 2HRS. DUPLEX LOWER EXT -DVT. ECHO MILD PULMONARY HTN,- RV DYSFUNCTION. - Current Medication List Current Medications: Active Medications Heparin Sodium (Porcine) (Heparin -) 5,000 unit IVPUSH PRN PRN Heparin Sodium (Porcine) (Heparin -) 1,000 unit IVPUSH PRN PRN Last Admin: 01/05/17 23:36 Dose: 1,000 unit Heparin Sodium (Porcine) 25, (000 unit/ Sodium Chloride) 500 mls @ 20 mls/hr IV TITR RICK; 1,000 UNIT/HR PRN Reason: Protocol Last Admin: 01/05/17 23:43 Dose: 22 mls/hr Pantoprazole Sodium (Protonix 40mg Ivpb (Pre-Docked)) 100 mls @ 200 mls/hr IVPB DAILY RICK Insulin Aspart (Novolog Vial Sliding Scale -) 1 vial SQ ACHS RICK PRN Reason: Protocol Last Admin: 01/06/17 06:12 Dose: 2 units Losartan Potassium (Cozaar -) 25 mg PO DAILY [facility] Metformin HCl (Glucophage -) 1,000 mg PO DAILY@0700 [facility] Last Admin: 01/06/17 08:06 Dose: Not Given Metoprolol Succinate (Toprol Xl -) 25 mg PO DAILY [facility] Last Admin: 01/05/17 15:04 Dose: 25 mg Ondansetron HCl (Zofran Injection) 4 mg IVPB Q6H PRN PRN Reason: NAUSEA Sitagliptin Phosphate (Januvia -) 50 mg PO DAILY@0700 [facility] Last Admin: 01/06/17 08:06 Dose: Not Given - Objective Vital Signs: Vital Signs Temperature 98 F 01/06/17 02:00 Pulse Rate 88 01/06/17 02:00 Respiratory Rate 18 01/06/17 02:00 Blood Pressure 137/64 01/06/17 02:00 O2 Sat by Pulse Oximetry (%) 100 01/05/17 22:00 Constitutional: Yes: Well Nourished, Calm Eyes: Yes: WNL HENT: Yes: WNL Neck: Yes: WNL Cardiovascular: Yes: Pulse Irregular, S1, S2 Respiratory: Yes: Diminished Gastrointestinal: Yes: Normal Bowel Sounds, Soft, Hematemesis Extremities: Yes: WNL Edema: No Labs: CBC, BMP 01/06/17 05:20 01/06/17 05:20 Problem List - Problems (1) GI (gastrointestinal bleed) Code(s): K92.2 - GASTROINTESTINAL HEMORRHAGE, UNSPECIFIED Assessment/Plan Problem List - Problems (1) Pulmonary embolism Code(s): I26.99 - OTHER PULMONARY EMBOLISM WITHOUT ACUTE COR PULMONALE Qualifiers: Pulmonary embolism type: other Chronicity: acute Acute cor pulmonale presence: without acute cor pulmonale Qualified Code(s): I26.99 - Other pulmonary embolism without acute cor pulmonale (2) Abnormal vaginal bleeding Code(s): N93.9 - ABNORMAL UTERINE AND VAGINAL BLEEDING, UNSPECIFIED (3) Afib Code(s): I48.91 - UNSPECIFIED ATRIAL FIBRILLATION (4) CVA (cerebral infarction) Code(s): I63.9 - CEREBRAL INFARCTION, UNSPECIFIED (5) Chest pain Code(s): R07.9 - CHEST PAIN, UNSPECIFIED Qualifiers: Chest pain type: unspecified Qualified Code(s): R07.9 - Chest pain, unspecified (6) Diabetes Code(s): E11.9 - TYPE 2 DIABETES MELLITUS WITHOUT COMPLICATIONS (7) Hypertension Code(s): I10 - ESSENTIAL (PRIMARY) HYPERTENSION (8) Metastasis Code(s): C79.9 - SECONDARY MALIGNANT NEOPLASM OF UNSPECIFIED SITE Qualifiers: Area of secondary neoplastic involvement: respiratory structure Respiratory structure secondary neoplasm location: metastatic to lung Laterality: unspecified laterality Qualified Code(s): C78.00 - Secondary malignant neoplasm of unspecified lung (9) Shortness of breath Code(s): R06.02 - SHORTNESS OF BREATH (10) Uterine cancer Code(s): C55 - MALIGNANT NEOPLASM OF UTERUS, PART UNSPECIFIED Assessment/Plan IV Heparin IVC Filter O2 as needed Follow H&H Normal transfusion thresholds GI evaluation,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
[2017-01-06] MEDS: METOPROLOL SUCCINATE 25 MG TAB.SR.24H (FP) PO SCH (10:29)
[2017-01-06] MEDS: LOSARTAN POTASSIUM 50 MG TABLET (FP) PO SCH (10:29)
[2017-01-06] MEDS ORDERED: HEPARIN NA (PORCINE) 5,000 UNITS/ML 1ML VIAL IVPUSH PRN ×2 (10:56→10:57)
[2017-01-06] MEDS ORDERED: HEPARIN - 25,000 UNIT in SODIUM CHLORIDE 495 ML IV SCH (11:00)
--- NOTE | 2017-01-06 13:18 | HP ---
Admitting History and Physical - Admission Chief Complaint: new pulmonary embolism History of Present Illness: Pt is an 86 y/o pleasant female with a complex medical history of uterine ca treated with oral chemotherapy per her record at [facility].fib s/p pacemaker , CVA, DM, prior PE,HTN who used to be on AC but now taken off due to uterin bleeding and on daily OP aspirin. She presented with chest pain and increasing REGAN. On presentation, she was found to have a d-dimer of > 5000, CTA showed the presence of a new PE in her right main pulmonary artery as well as lower lobe pulmonary arteries, bilateral pulmonary masses. TTE showed a normal left ventricular EF and increased right ventricular pressure. She was placed on A/C with a heparin drip and transferred to ICU for closer monitoring due to risk of bleeding. CT scan performed at admission also showed b/l pulmonary masses concerning for pulmonary metastasis. Heme/Onc has been consulted to help decide on IVC filter placement. On speaking with patient, she is conversant and besides mild SOB, does not have any other complaints. 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: CVA Cardiovascular: Yes: AFIB, HTN, Hyperlipdemia, Other (PPM) Pulmonary: Yes: Pulmonary Embolus Gastrointestinal: Yes: Cancer Renal/: Yes: Cancer (uterine cancer) Endocrine: Yes: Diabetes Mellitus - Past Surgical History Past Surgical History: Yes: Permanent Pacemaker - Smoking History Smoking history: Never smoked Have you smoked in the past 12 months: No Aproximately how many cigarettes per day: 0 - Alcohol/Substance Use Hx Alcohol Use: No - Social History ADL: Family Assistance History of Recent Travel: No Home Medications - Allergies Allergies/Adverse Reactions: Allergies Allergy/AdvReac Type Severity Reaction Status Date / Time No Known Allergies Allergy Verified 01/04/17 17:27 - Home Medications Home Medications: Ambulatory Orders Losartan Potassium 25 mg PO DAILY 07/31/14 Aspirin [ASA -] 81 mg PO DAILY 11/23/16 Linagliptin/Metformin HCl [Jentadueto 2.5 mg-1000 mg Tab] 0.5 tab PO DAILY 11/23 Amlodipine Besylate [Norvasc -] 5 mg PO DAILY 01/04/17 Metoprolol Succinate [Toprol Xl -] 25 mg PO DAILY 01/04/17 Review of Systems - Review of Systems Constitutional: reports: No Symptoms Eyes: reports: No Symptoms HENT: reports: No Symptoms Neck: reports: No Symptoms Cardiovascular: reports: Shortness of Breath Respiratory: reports: SOB on Exertion Gastrointestinal: reports: No Symptoms Genitourinary: reports: No Symptoms Breasts: reports: No Symptoms Reported Musculoskeletal: reports: No Symptoms Integumentary: reports: No Symptoms Neurological: reports: No Symptoms Endocrine: reports: No Symptoms Hematology/Lymphatic: reports: No Symptoms Psychiatric: reports: No Symptoms Physical Examination Vital Signs: Vital Signs Temperature 98 F 01/06/17 02:00 Pulse Rate 90 01/06/17 09:00 Respiratory Rate 18 01/06/17 09:00 Blood Pressure 169/78 01/06/17 09:00 O2 Sat by Pulse Oximetry (%) 100 01/06/17 09:00 Constitutional: Yes: No Distress Eyes: Yes: Conjunctiva Clear HENT: Yes: Atraumatic, Normocephalic Neck: Yes: WNL, Supple, Trachea Midline Cardiovascular: Yes: Tachycardia Respiratory: Yes: CTA Bilaterally, On Nasal O2 Gastrointestinal: Yes: Normal Bowel Sounds Renal/: Yes: WNL Breast(s): Yes: WNL Musculoskeletal: Yes: WNL Extremities: Yes: WNL Edema: No Peripheral Pulses WNL: Yes Integumentary: Yes: WNL Neurological: Yes: WNL, Alert, Oriented Psychiatric: Yes: WNL Labs: CBC, BMP 01/06/17 05:20 01/06/17 05:20 Assessment/Plan 86 y/o female with Hx of uterine Ca on treatment, several cardiac comorbidities with a prior history of a PE and uterine bleeding now presenting with an acute submassive PE -Continue A/C with heparin, this is indicated in the setting of an acute PE -Will need to obtain collateral history fro [facility] records regarding stage, treatment of uterine cancer and prior uterine bleed -agree with plan for vascular surgery consultation for placement of retrievable IVC filter -continue close intensive hemodyanamic monitoring for patient -will continue to follow closely
--- NOTE | 2017-01-06 17:03 | CON.GI ---
Consult Consult Specialty:: GI Referred by:: Mo Singleton MD Reason for Consultation:: hematemesis - History of Present Illness Chief Complaint: Dyspnea, fatigue and chest pain History of Present Illness: 86F with h/o ?metastatic uterine CA, AF, PPM, prior CVA, DM, prior PE, HTN. Formerly on coumadin but stopped secondary to uterrine bleeding, and has been on ASA only. Seen at [place] with CP, REGAN and fatigue. CTA showed pulmonary embolism. 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 She was noted to have coffeeground [facility] and this AM vomited in ICU with only specks of blood. Called to evaluate same. 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 Cardio/Vascular: Yes: AFIB, HTN, Hyperlipdemia, Other (PPM) Pulmonary: Yes: Pulmonary Embolus Gastrointestinal: Yes: Cancer Renal/: Yes: Cancer (uterine cancer) Endocrine: Yes: Diabetes Mellitus - Past Surgical History Past Surgical History: Yes: Permanent Pacemaker - Alcohol/Substance Use Hx Alcohol Use: No - Smoking History Smoking history: Never smoked Have you smoked in the past 12 months: No Aproximately how many cigarettes per day: 0 - Social History Usual Living Arrangement: With Child ADL: Family Assistance History of Recent Travel: No Home Medications - Allergies Allergies/Adverse Reactions: Allergies Allergy/AdvReac Type Severity Reaction Status Date / Time No Known Allergies Allergy Verified 01/04/17 17:27 - Home Medications Home Medications: Ambulatory Orders Losartan Potassium 25 mg PO DAILY 07/31/14 Aspirin [ASA -] 81 mg PO DAILY 11/23/16 Linagliptin/Metformin HCl [Jentadueto 2.5 mg-1000 mg Tab] 0.5 tab PO DAILY 11/23 Amlodipine Besylate [Norvasc -] 5 mg PO DAILY 01/04/17 Metoprolol Succinate [Toprol Xl -] 25 mg PO DAILY 01/04/17 Physical Exam-GI Vital Signs: Vital Signs Temperature 98.4 F 01/06/17 15:42 Pulse Rate 89 01/06/17 15:42 Respiratory Rate 20 01/06/17 15:42 Blood Pressure 173/75 01/06/17 15:42 O2 Sat by Pulse Oximetry (%) 100 01/06/17 15:42 Constitutional: Yes: Thin HENT: Yes: Other (facial droop) Cardiovascular: Yes: Pulse Irregular (Monitor: AF with intermittent pacemaker spikes) Respiratory: Yes: CTA Bilaterally Labs: CBC, BMP 01/06/17 05:20 01/06/17 05:20 Imaging - Results Other: Report Reviewed (Echo reviewed.) Assessment/Plan 86 with above history now with new PE. [place] filter placed. She is on a heparin drip as well. REC: Continue heparin. She is hypercoagulable likely secondary to her underlying malignancy and is at risk for new thrombotic events. Start full liquid diet. PPI changed to BID for now
[2017-01-06] MEDS: PANTOPRAZOLE SODIUM 100 ML IVPB SCH (23:01)
[2017-01-06] MEDS ORDERED: PT OWN MED DRAWER 7, Y5N ONE (23:10)
--- NOTE | 2017-01-06 23:51 | PN ---
Progress Note, Physician - Current Medication List Current Medications: Active Medications Heparin Sodium (Porcine) (Heparin -) 5,000 unit IVPUSH PRN PRN Last Admin: 01/06/17 23:01 Dose: 5,000 unit Heparin Sodium (Porcine) (Heparin -) 1,000 unit IVPUSH PRN PRN Last Admin: 01/06/17 17:15 Dose: 1,000 unit Heparin Sodium (Porcine) 25, (000 unit/ Sodium Chloride) 500 mls @ 19 mls/hr IV TITR RICK; 950 UNIT/HR PRN Reason: Protocol Last Titration: 01/06/17 23:01 Dose: 1,200 unit/hr Pantoprazole Sodium (Protonix 40mg Ivpb (Pre-Docked)) 100 mls @ 200 mls/hr IVPB BID RICK Last Admin: 01/06/17 23:01 Dose: 200 mls/hr Insulin Aspart (Novolog Vial Sliding Scale -) 1 vial SQ ACHS RICK PRN Reason: Protocol Last Admin: 01/06/17 23:01 Dose: 4 units Losartan Potassium (Cozaar -) 25 mg PO DAILY [facility] Last Admin: 01/06/17 10:29 Dose: 25 mg Metformin HCl (Glucophage -) 1,000 mg PO DAILY@0700 [facility] Last Admin: 01/06/17 08:06 Dose: Not Given Metoprolol Succinate (Toprol Xl -) 25 mg PO DAILY [facility] Last Admin: 01/06/17 10:29 Dose: 25 mg Ondansetron HCl (Zofran Injection) 4 mg IVPB Q6H PRN PRN Reason: NAUSEA Last Admin: 01/06/17 10:11 Dose: 4 mg Sitagliptin Phosphate (Januvia -) 50 mg PO DAILY@0700 [facility] Last Admin: 01/06/17 08:06 Dose: Not Given - Objective Vital Signs: Vital Signs Temperature 98.4 F 01/06/17 15:42 Pulse Rate 89 01/06/17 15:42 Respiratory Rate 20 01/06/17 15:42 Blood Pressure 173/75 01/06/17 15:42 O2 Sat by Pulse Oximetry (%) 100 01/06/17 15:42 Labs: CBC, BMP 01/06/17 05:20 01/06/17 05:20
[2017-01-07] MEDS: INSULIN SLIDING SCALE (NOVOLOG) 1 VIAL SQ SCH ×4 (06:23→21:57)
[2017-01-07 06:31] LABS: BASOPHIL 0.3 % (0-2.0); EOSINOPHIL 0.3 % (0-4.5); MCH 29.3 pg (25.7-33.7); MCHC 32.6 g/dl (32.0-36.0); MEAN CELL VOLUME 89.8 fl (80-96); MEAN PLT VOLUME 8.7 fl (7.5-11.1); NEUTROPHILS 82.6 % (42.8-82.8); PLATELET COUNT 227 K/MM3 (134-434); WHITE BLOOD COUNT 4.9 K/mm3 (4.0-10.0)
[2017-01-07 07:33] LABS: ALBUMIN 2.5 g/dl (3.4-5.0); ANION GAP 9 (8-16); BILIRUBIN,TOTAL 0.7 mg/dL (0.2-1.0); CO2 28 mmol/L (21-32); CREATININE 0.8 mg/dL (0.55-1.02); GLUCOSE,RANDOM 94 mg/dL (74-106); SGOT/AST 21 U/L (15-37); SGPT/ALT 15 U/L (12-78); TOT PROT 6.4 g/dl (6.4-8.2)
[2017-01-07 07:34] LABS: ALK PHOS 81 U/L (45-117)
[2017-01-07] MEDS: HEPARIN - 25,000 UNIT in SODIUM CHLORIDE 495 ML IV SCH ×3 (08:14→17:36)
--- NOTE | 2017-01-07 08:54 | PN ---
Progress Note, Physician Chief Complaint: s/p IVC filter TELE: AF with intermittent pacing History of Present Illness: no distress - Current Medication List Current Medications: Active Medications Heparin Sodium (Porcine) (Heparin -) 5,000 unit IVPUSH PRN PRN Last Admin: 01/06/17 23:01 Dose: 5,000 unit Heparin Sodium (Porcine) (Heparin -) 1,000 unit IVPUSH PRN PRN Last Admin: 01/06/17 17:15 Dose: 1,000 unit Heparin Sodium (Porcine) 25, (000 unit/ Sodium Chloride) 500 mls @ 19 mls/hr IV TITR RICK; 950 UNIT/HR PRN Reason: Protocol Last Admin: 01/07/17 08:14 Dose: 22 mls/hr Pantoprazole Sodium (Protonix 40mg Ivpb (Pre-Docked)) 100 mls @ 200 mls/hr IVPB BID RICK Last Admin: 01/06/17 23:01 Dose: 200 mls/hr Insulin Aspart (Novolog Vial Sliding Scale -) 1 vial SQ ACHS RICK PRN Reason: Protocol Last Admin: 01/07/17 06:23 Dose: Not Given Losartan Potassium (Cozaar -) 25 mg PO DAILY [facility] Last Admin: 01/06/17 10:29 Dose: 25 mg Metformin HCl (Glucophage -) 1,000 mg PO DAILY@0700 [facility] Last Admin: 01/06/17 08:06 Dose: Not Given Metoprolol Succinate (Toprol Xl -) 25 mg PO DAILY [facility] Last Admin: 01/06/17 10:29 Dose: 25 mg Ondansetron HCl (Zofran Injection) 4 mg IVPB Q6H PRN PRN Reason: NAUSEA Last Admin: 01/06/17 10:11 Dose: 4 mg Sitagliptin Phosphate (Januvia -) 50 mg PO DAILY@0700 [facility] Last Admin: 01/06/17 08:06 Dose: Not Given - Objective Vital Signs: Vital Signs Temperature 98.3 F 01/07/17 05:51 Pulse Rate 90 01/07/17 05:51 Respiratory Rate 20 01/07/17 05:51 Blood Pressure 148/64 01/07/17 05:51 O2 Sat by Pulse Oximetry (%) 100 01/06/17 21:00 Constitutional: Yes: No Distress Cardiovascular: Yes: Pulse Irregular Respiratory: Yes: CTA Bilaterally Gastrointestinal: Yes: Soft Edema: No Neurological: Yes: Alert Labs: CBC, BMP 01/07/17 05:15 01/07/17 05:15 Laboratory Tests 01/07/17 01/07/17 01/07/17 05:15 05:15 05:15 WBC 4.9 Hgb 9.4 L Plt Count 227 PTT (Actin FS) 94.6 H D Sodium 143 Potassium 3.8 Creatinine 0.8 - ....Imaging EKG: Image Reviewed Assessment/Plan IMP: Acute pulmonary embolism, no evidence of RV strain. 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 PE: s/p IVC filter. On heparin gtts, may need to d/c if recurrent bleeding. 2. GI bleed: as per GI, protonix. 3. AF: continue beta syeda, rates controlled. If bleeding continues, d/c heparin. 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
--- NOTE | 2017-01-07 10:37 | PN ---
Progress Note (short form) - Note Progress Note: Oncology follow-up note S: Patient doing well today. Does not have any complaints. Is s/p IVC filter placement yesterday. Last Vital Signs Temp Pulse Resp BP Pulse Ox 98.3 F 90 20 148/64 100 01/07/17 05:51 01/07/17 05:51 01/07/17 05:51 01/07/17 05:51 01/06/17 21:00 Physical exam Constitutional: Yes: No Distress Eyes: Yes: Conjunctiva Clear HENT: Yes: Atraumatic, Normocephalic Neck: Yes: WNL, Supple, Trachea Midline Cardiovascular: Yes: Tachycardia Respiratory: Yes: CTA Bilaterally, On Nasal O2 Gastrointestinal: Yes: Normal Bowel Sounds Renal/: Yes: WNL Breast(s): Yes: WNL Musculoskeletal: Yes: WNL Extremities: Yes: WNL Edema: No Peripheral Pulses WNL: Yes Integumentary: Yes: WNL Neurological: Yes: WNL, Alert, Oriented Psychiatric: Yes: WNL CBC, BMP 01/07/17 05:15 01/07/17 05:15 Current Medications Generic Name Dose Route Start Last Admin Trade Name Freq PRN Reason Stop Dose Admin Heparin Sodium (Porcine) 5,000 unit 01/06/17 10:56 01/06/17 23:01 Heparin - IVPUSH 5,000 unit PRN PRN Administration Heparin Sodium (Porcine) 1,000 unit 01/06/17 10:57 01/06/17 17:15 Heparin - IVPUSH 1,000 unit PRN PRN Administration Heparin Sodium (Porcine) 25, 500 mls @ 19 mls/hr 01/06/17 12:15 01/07/17 08:14 000 unit/ Sodium Chloride IV 22 mls/hr TITR RICK Administration Protocol 950 UNIT/HR Pantoprazole Sodium 100 mls @ 200 mls/hr 01/06/17 22:00 01/06/17 23:01 Protonix 40mg Ivpb (Pre-Docked) IVPB 200 mls/hr BID RICK Administration Insulin Aspart 1 vial 01/06/17 07:00 01/07/17 06:23 Novolog Vial Sliding Scale - SQ Not Given ACHS RICK Protocol Losartan Potassium 25 mg 01/06/17 10:00 01/06/17 10:29 Cozaar - PO 25 mg DAILY RICK Administration Metformin HCl 1,000 mg 01/06/17 07:00 01/06/17 08:06 Glucophage - PO Not Given DAILY@0700 [facility] Metoprolol Succinate 25 mg 01/05/17 14:45 01/06/17 10:29 Toprol Xl - PO 25 mg DAILY RICK Administration Ondansetron HCl 4 mg 01/06/17 08:35 01/06/17 10:11 Zofran Injection IVPB 4 mg Q6H PRN Administration NAUSEA Sitagliptin Phosphate 50 mg 01/06/17 07:00 01/06/17 08:06 Januvia - PO Not Given DAILY@0700 [facility] 86 y/o female with Hx of uterine Ca on treatment, several cardiac comorbidities with a prior history of a PE and uterine bleeding now presenting with an acute submassive PE - patient s/p IVC filter placement yesterday as she is a high risk of bleeding - continue A/C with heparin, hold if there is increase in vaginal bleeding -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 She also has chronic vaginal bleeding. -continue close intensive hemodyanamic monitoring for patient -will continue to follow closely
--- NOTE | 2017-01-07 10:40 | PN ---
Progress Note, Physician History of Present Illness: PULMONARY ALERT,NAD,-SOB,-CP, -COFFEE GROUND EMESIS. PT S/P IVC FILTER INSERTION TOLERATED PROCEDURE WELL. - Current Medication List Current Medications: Active Medications Heparin Sodium (Porcine) (Heparin -) 5,000 unit IVPUSH PRN PRN Last Admin: 01/06/17 23:01 Dose: 5,000 unit Heparin Sodium (Porcine) (Heparin -) 1,000 unit IVPUSH PRN PRN Last Admin: 01/06/17 17:15 Dose: 1,000 unit Heparin Sodium (Porcine) 25, (000 unit/ Sodium Chloride) 500 mls @ 19 mls/hr IV TITR RICK; 950 UNIT/HR PRN Reason: Protocol Last Admin: 01/07/17 08:14 Dose: 22 mls/hr Pantoprazole Sodium (Protonix 40mg Ivpb (Pre-Docked)) 100 mls @ 200 mls/hr IVPB BID RICK Last Admin: 01/06/17 23:01 Dose: 200 mls/hr Insulin Aspart (Novolog Vial Sliding Scale -) 1 vial SQ ACHS RICK PRN Reason: Protocol Last Admin: 01/07/17 06:23 Dose: Not Given Losartan Potassium (Cozaar -) 25 mg PO DAILY [facility] Last Admin: 01/06/17 10:29 Dose: 25 mg Metformin HCl (Glucophage -) 1,000 mg PO DAILY@0700 [facility] Last Admin: 01/06/17 08:06 Dose: Not Given Metoprolol Succinate (Toprol Xl -) 25 mg PO DAILY [facility] Last Admin: 01/06/17 10:29 Dose: 25 mg Ondansetron HCl (Zofran Injection) 4 mg IVPB Q6H PRN PRN Reason: NAUSEA Last Admin: 01/06/17 10:11 Dose: 4 mg Sitagliptin Phosphate (Januvia -) 50 mg PO DAILY@0700 [facility] Last Admin: 01/06/17 08:06 Dose: Not Given - Objective Vital Signs: Vital Signs Temperature 98.3 F 01/07/17 05:51 Pulse Rate 90 01/07/17 05:51 Respiratory Rate 20 01/07/17 05:51 Blood Pressure 148/64 01/07/17 05:51 O2 Sat by Pulse Oximetry (%) 100 01/06/17 21:00 Constitutional: Yes: Well Nourished, Calm Eyes: Yes: WNL HENT: Yes: WNL Neck: Yes: WNL Cardiovascular: Yes: Pulse Irregular, S1, S2 Respiratory: Yes: CTA Bilaterally Gastrointestinal: Yes: Normal Bowel Sounds, Soft Extremities: Yes: WNL Edema: No Labs: CBC, BMP 01/07/17 05:15 01/07/17 05:15 Problem List - Problems (1) GI (gastrointestinal bleed) Code(s): K92.2 - GASTROINTESTINAL HEMORRHAGE, UNSPECIFIED Assessment/Plan Problem List - Problems (1) Pulmonary embolism Code(s): I26.99 - OTHER PULMONARY EMBOLISM WITHOUT ACUTE COR PULMONALE Qualifiers: Pulmonary embolism type: other Chronicity: acute Acute cor pulmonale presence: without acute cor pulmonale Qualified Code(s): I26.99 - Other pulmonary embolism without acute cor pulmonale (2) Abnormal vaginal bleeding Code(s): N93.9 - ABNORMAL UTERINE AND VAGINAL BLEEDING, UNSPECIFIED (3) Afib Code(s): I48.91 - UNSPECIFIED ATRIAL FIBRILLATION (4) CVA (cerebral infarction) Code(s): I63.9 - CEREBRAL INFARCTION, UNSPECIFIED (5) Chest pain Code(s): R07.9 - CHEST PAIN, UNSPECIFIED Qualifiers: Chest pain type: unspecified Qualified Code(s): R07.9 - Chest pain, unspecified (6) Diabetes Code(s): E11.9 - TYPE 2 DIABETES MELLITUS WITHOUT COMPLICATIONS (7) Hypertension Code(s): I10 - ESSENTIAL (PRIMARY) HYPERTENSION (8) Metastasis Code(s): C79.9 - SECONDARY MALIGNANT NEOPLASM OF UNSPECIFIED SITE Qualifiers: Area of secondary neoplastic involvement: respiratory structure Respiratory structure secondary neoplasm location: metastatic to lung Laterality: unspecified laterality Qualified Code(s): C78.00 - Secondary malignant neoplasm of unspecified lung (9) Shortness of breath Code(s): R06.02 - SHORTNESS OF BREATH (10) Uterine cancer Code(s): C55 - MALIGNANT NEOPLASM OF UTERUS, PART UNSPECIFIED Assessment/Plan IV Heparin O2 as needed Follow H&H Normal transfusion thresholds [employer]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
[2017-01-07] MEDS: metFORMIN HCL 500 MG TABLET (FP) PO SCH (10:45)
[2017-01-07] MEDS: sitaGLIPtin PHOSPHATE 50 MG TABLET PO SCH (10:46)
[2017-01-07] MEDS: PANTOPRAZOLE SODIUM 100 ML IVPB SCH ×2 (10:46→21:55)
[2017-01-07] MEDS: METOPROLOL SUCCINATE 25 MG TAB.SR.24H (FP) PO SCH (10:47)
[2017-01-07] MEDS: LOSARTAN POTASSIUM 50 MG TABLET (FP) PO SCH (10:48)
--- NOTE | 2017-01-07 23:47 | PN ---
Progress Note, Physician - Current Medication List Current Medications: Active Medications Heparin Sodium (Porcine) (Heparin -) 5,000 unit IVPUSH PRN PRN Last Admin: 01/06/17 23:01 Dose: 5,000 unit Heparin Sodium (Porcine) (Heparin -) 1,000 unit IVPUSH PRN PRN Last Admin: 01/06/17 17:15 Dose: 1,000 unit Heparin Sodium (Porcine) 25, (000 unit/ Sodium Chloride) 500 mls @ 19 mls/hr IV TITR RICK; 950 UNIT/HR PRN Reason: Protocol Last Admin: 01/07/17 17:36 Dose: 22 mls/hr Pantoprazole Sodium (Protonix 40mg Ivpb (Pre-Docked)) 100 mls @ 200 mls/hr IVPB BID [facility] Last Admin: 01/07/17 21:55 Dose: 200 mls/hr Insulin Aspart (Novolog Vial Sliding Scale -) 1 vial SQ ACHS RICK PRN Reason: Protocol Last Admin: 01/07/17 21:57 Dose: 2 units Losartan Potassium (Cozaar -) 25 mg PO DAILY [facility] Last Admin: 01/07/17 10:48 Dose: 25 mg Metformin HCl (Glucophage -) 1,000 mg PO DAILY@0700 [facility] Last Admin: 01/07/17 10:45 Dose: 1,000 mg Metoprolol Succinate (Toprol Xl -) 25 mg PO DAILY [facility] Last Admin: 01/07/17 10:47 Dose: 25 mg Ondansetron HCl (Zofran Injection) 4 mg IVPB Q6H PRN PRN Reason: NAUSEA Last Admin: 01/06/17 10:11 Dose: 4 mg Sitagliptin Phosphate (Januvia -) 50 mg PO DAILY@0700 [facility] Last Admin: 01/07/17 10:46 Dose: 50 mg - Objective Vital Signs: Vital Signs Temperature 98.6 F 01/07/17 17:37 Pulse Rate 83 01/07/17 17:37 Respiratory Rate 20 01/07/17 17:37 Blood Pressure 146/68 01/07/17 17:37 O2 Sat by Pulse Oximetry (%) 96 01/07/17 09:00 Labs: CBC, BMP 01/07/17 05:15 01/07/17 05:15
[2017-01-08 06:27] LABS: MCH 29.2 pg (25.7-33.7); MCHC 32.7 g/dl (32.0-36.0); MEAN CELL VOLUME 89.2 fl (80-96); MEAN PLT VOLUME 8.9 fl (7.5-11.1); PLATELET COUNT 237 K/MM3 (134-434); RDW 13.8 % (11.6-15.6); WHITE BLOOD COUNT 4.3 K/mm3 (4.0-10.0)
[2017-01-08] MEDS: metFORMIN HCL 500 MG TABLET (FP) PO SCH (06:48)
[2017-01-08] MEDS: sitaGLIPtin PHOSPHATE 50 MG TABLET PO SCH (06:49)
[2017-01-08] MEDS: INSULIN SLIDING SCALE (NOVOLOG) 1 VIAL SQ SCH ×4 (06:49→21:58)
[2017-01-08] MEDS ORDERED: INSULIN (NOVOLOG) ASPART 100 UNITS/ML 10ML VIAL ONE (07:22)
[2017-01-08] MEDS: HEPARIN - 25,000 UNIT in SODIUM CHLORIDE 495 ML IV SCH ×3 (07:28→18:08)
--- NOTE | 2017-01-08 08:43 | EKG ---
Test Reason : Blood Pressure : / mmHG Vent. Rate : 085 BPM Atrial Rate : 375 BPM P-R Int : 000 ms QRS Dur : 098 ms QT Int : 338 ms P-R-T Axes : 000 -14 -79 degrees QTc Int : 402 ms ATRIAL FIBRILLATION WITH FREQUENT ventricular-paced complexes T WAVE ABNORMALITY, CONSIDER INFERIOR ISCHEMIA T WAVE ABNORMALITY, CONSIDER ANTEROLATERAL ISCHEMIA ABNORMAL ECG WHEN COMPARED WITH ECG OF 23-NOV-2016 10:13, PREMATURE VENTRICULAR COMPLEXES ARE NO LONGER PRESENT VENT. RATE HAS DECREASED BY 2 BPM Confirmed by DELONTE MARTINEZ MD ([id number]) on 01/08/2017 8:43:10 AM Referred By: Munir COMER Confirmed By:DELONTE MARTINEZ MD
[2017-01-08] MEDS: LOSARTAN POTASSIUM 50 MG TABLET (FP) PO SCH (09:28)
[2017-01-08] MEDS: PANTOPRAZOLE SODIUM 100 ML IVPB SCH (09:29)
[2017-01-08] MEDS: METOPROLOL SUCCINATE 25 MG TAB.SR.24H (FP) PO SCH (09:29)
--- NOTE | 2017-01-08 09:29 | PN ---
Progress Note, Physician History of Present Illness: seen and examined today in nad. no overnight events. no new complaints. - Current Medication List Current Medications: Active Medications Heparin Sodium (Porcine) (Heparin -) 5,000 unit IVPUSH PRN PRN Last Admin: 01/06/17 23:01 Dose: 5,000 unit Heparin Sodium (Porcine) (Heparin -) 1,000 unit IVPUSH PRN PRN Last Admin: 01/06/17 17:15 Dose: 1,000 unit Heparin Sodium (Porcine) 25, (000 unit/ Sodium Chloride) 500 mls @ 19 mls/hr IV TITR RICK; 950 UNIT/HR PRN Reason: Protocol Last Admin: 01/08/17 07:28 Dose: 20 mls/hr Pantoprazole Sodium (Protonix 40mg Ivpb (Pre-Docked)) 100 mls @ 200 mls/hr IVPB BID RICK Last Admin: 01/07/17 21:55 Dose: 200 mls/hr Insulin Aspart (Novolog Vial Sliding Scale -) 1 vial SQ ACHS RICK PRN Reason: Protocol Last Admin: 01/08/17 06:49 Dose: 2 units Losartan Potassium (Cozaar -) 25 mg PO DAILY [facility] Last Admin: 01/07/17 10:48 Dose: 25 mg Metformin HCl (Glucophage -) 1,000 mg PO DAILY@0700 [facility] Last Admin: 01/08/17 06:48 Dose: 1,000 mg Metoprolol Succinate (Toprol Xl -) 25 mg PO DAILY [facility] Last Admin: 01/07/17 10:47 Dose: 25 mg Ondansetron HCl (Zofran Injection) 4 mg IVPB Q6H PRN PRN Reason: NAUSEA Last Admin: 01/06/17 10:11 Dose: 4 mg Sitagliptin Phosphate (Januvia -) 50 mg PO DAILY@0700 [facility] Last Admin: 01/08/17 06:49 Dose: 50 mg - Objective Vital Signs: Vital Signs Temperature 98.0 F 01/08/17 07:00 Pulse Rate 95 H 01/08/17 07:00 Respiratory Rate 16 01/08/17 07:00 Blood Pressure 150/82 01/08/17 07:00 O2 Sat by Pulse Oximetry (%) 97 01/08/17 09:00 Constitutional: Yes: No Distress, Calm Eyes: Yes: Conjunctiva Clear, EOM Intact, PERRL HENT: Yes: Atraumatic, Normocephalic Neck: Yes: Supple, Trachea Midline Cardiovascular: Yes: Pulse Irregular, S1, S2. No: Bradycardia, Tachycardia, Bruit, JVD, Gallop, Murmur, Rub, S3, S4, Varicosities Respiratory: Yes: Regular, CTA Bilaterally. No: Rales, Rhonchi, Wheezes Gastrointestinal: Yes: Normal Bowel Sounds, Soft. No: Distention, Tenderness Musculoskeletal: Yes: Muscle Weakness Edema: No Peripheral Pulses WNL: Yes Peripheral Pulses: Left Doralis Pedis: 2+, Right Dorsalis Pedis: 2+ Neurological: Yes: Alert, Oriented Psychiatric: Yes: Alert, Oriented Labs: CBC, BMP 01/08/17 05:10 01/07/17 05:15 - ....Imaging Chest X-ray: Report Reviewed, Image Reviewed EKG: Report Reviewed, Image Reviewed Other: Report Reviewed, Image Reviewed (tele-AFib, intermittently paced) Assessment/Plan IMP: Acute pulmonary embolism, with h/o uterine bleeding and GI bleeding now s/p IVC filter History uterine CA with suspected pulmonary mets, history uterine bleeding and now GI bleeding Permanent AF s/p PPM HTN REC: Acute Pulmonary Embolism -s/p IVC filter, still on heparin gtt -need to discuss AC plan further with pulmonary, clearing house clerk, GI -continues on heparin gtt, monitoring for significant bleeding, if occurs full AC may need to be dcd Chronic AF-HR is adequately controlled -cont Toprol at current dose -pt was taken off coumadin for purposes of AFib treatment as outpatient due to h /o bleeding -now on AC for tx of acute PE HTN-adequately controlled -cont Toprol, Losartan
--- NOTE | 2017-01-08 16:58 | PN ---
Progress Note (short form) - Note Progress Note: Patient seen in Telemetry unit. No CP or SOB. No occult bleeding noted. H&H Stable. On IV Heparin. Intake & Output 01/05/17 01/06/17 01/07/17 01/08/17 23:59 23:59 23:59 23:59 Intake Total 1350 805 402 764 Output Total 600 300 Balance 750 805 102 764 Weight 145 lb 7 oz Last Vital Signs Temp Pulse Resp BP Pulse Ox 98.2 F 87 16 132/73 97 01/08/17 14:30 01/08/17 14:30 01/08/17 14:30 01/08/17 14:30 01/08/17 09:00 Active Medications Heparin Sodium (Porcine) (Heparin -) 5,000 unit IVPUSH PRN PRN Last Admin: 01/06/17 23:01 Dose: 5,000 unit Heparin Sodium (Porcine) (Heparin -) 1,000 unit IVPUSH PRN PRN Last Admin: 01/06/17 17:15 Dose: 1,000 unit Heparin Sodium (Porcine) 25, (000 unit/ Sodium Chloride) 500 mls @ 19 mls/hr IV TITR RICK; 950 UNIT/HR PRN Reason: Protocol Last Admin: 01/08/17 12:47 Dose: Not Given Pantoprazole Sodium (Protonix 40mg Ivpb (Pre-Docked)) 100 mls @ 200 mls/hr IVPB BID RICK Last Admin: 01/08/17 09:29 Dose: 200 mls/hr Insulin Aspart (Novolog Vial Sliding Scale -) 1 vial SQ ACHS RICK PRN Reason: Protocol Last Admin: 01/08/17 11:42 Dose: 2 units Losartan Potassium (Cozaar -) 25 mg PO DAILY [facility] Last Admin: 01/08/17 09:28 Dose: 25 mg Metformin HCl (Glucophage -) 1,000 mg PO DAILY@0700 [facility] Last Admin: 01/08/17 06:48 Dose: 1,000 mg Metoprolol Succinate (Toprol Xl -) 25 mg PO DAILY [facility] Last Admin: 01/08/17 09:29 Dose: 25 mg Ondansetron HCl (Zofran Injection) 4 mg IVPB Q6H PRN PRN Reason: NAUSEA Last Admin: 01/06/17 10:11 Dose: 4 mg Sitagliptin Phosphate (Januvia -) 50 mg PO DAILY@0700 RICK Last Admin: 01/08/17 06:49 Dose: 50 mg Constitutional: Yes: NAD Eyes: Yes: WNL HENT: Yes: WNL Neck: Yes: WNL Cardiovascular: Yes: Pulse Irregular, S1, S2 Respiratory: Yes: few basilar rhonchi Gastrointestinal: Yes: Normal Bowel Sounds, Soft Extremities: Yes: WNL Edema: No Labs: Laboratory Results - last 24 hr 01/07/17 01/07/17 01/08/17 17:13 21:31 05:10 WBC 4.3 RBC 3.18 L Hgb 9.3 L Hct 28.4 L MCV 89.2 MCHC 32.7 RDW 13.8 Plt Count 237 MPV 8.9 PTT (Actin FS) POC Glucometer 120.09135 162.74614 01/08/17 01/08/17 01/08/17 05:10 05:46 11:28 WBC RBC Hgb Hct MCV MCHC RDW Plt Count MPV PTT (Actin FS) 90.1 H D POC Glucometer 143.51135 173.31647 01/08/17 15:00 WBC RBC Hgb Hct MCV MCHC RDW Plt Count MPV PTT (Actin FS) 65.4 H POC Glucometer Assessment/Plan Problem List - Problems (1) Pulmonary embolism Code(s): I26.99 - OTHER PULMONARY EMBOLISM WITHOUT ACUTE COR PULMONALE Qualifiers: Pulmonary embolism type: other Chronicity: acute Acute cor pulmonale presence: without acute cor pulmonale Qualified Code(s): I26.99 - Other pulmonary embolism without acute cor pulmonale (2) Abnormal vaginal bleeding Code(s): N93.9 - ABNORMAL UTERINE AND VAGINAL BLEEDING, UNSPECIFIED (3) Afib Code(s): I48.91 - UNSPECIFIED ATRIAL FIBRILLATION (4) CVA (cerebral infarction) Code(s): I63.9 - CEREBRAL INFARCTION, UNSPECIFIED (5) Chest pain Code(s): R07.9 - CHEST PAIN, UNSPECIFIED Qualifiers: Chest pain type: unspecified Qualified Code(s): R07.9 - Chest pain, unspecified (6) Diabetes Code(s): E11.9 - TYPE 2 DIABETES MELLITUS WITHOUT COMPLICATIONS (7) Hypertension Code(s): I10 - ESSENTIAL (PRIMARY) HYPERTENSION (8) Metastasis Code(s): C79.9 - SECONDARY MALIGNANT NEOPLASM OF UNSPECIFIED SITE Qualifiers: Area of secondary neoplastic involvement: respiratory structure Respiratory structure secondary neoplasm location: metastatic to lung Laterality: unspecified laterality Qualified Code(s): C78.00 - Secondary malignant neoplasm of unspecified lung (9) Shortness of breath Code(s): R06.02 - SHORTNESS OF BREATH (10) Uterine cancer Code(s): C55 - MALIGNANT NEOPLASM OF UTERUS, PART UNSPECIFIED (11) GI (gastrointestinal bleed) Code(s): K92.2 - GASTROINTESTINAL HEMORRHAGE, UNSPECIFIED Assessment/Plan IV Heparin -> will need to discuss with oncology supervisor intermediates AC -> (?) LMWH due to CA history + VTE O2 as needed Follow H&H Normal transfusion thresholds Dr Alex Problem List - Problems (1) Pulmonary embolism Code(s): I26.99 - OTHER PULMONARY EMBOLISM WITHOUT ACUTE COR PULMONALE Qualifiers: Pulmonary embolism type: other Chronicity: acute Acute cor pulmonale presence: without acute cor pulmonale Qualified Code(s): I26.99 - Other pulmonary embolism without acute cor pulmonale (2) Abnormal vaginal bleeding Code(s): N93.9 - ABNORMAL UTERINE AND VAGINAL BLEEDING, UNSPECIFIED (3) Afib Code(s): I48.91 - UNSPECIFIED ATRIAL FIBRILLATION (4) CVA (cerebral infarction) Code(s): I63.9 - CEREBRAL INFARCTION, UNSPECIFIED (5) Chest pain Code(s): R07.9 - CHEST PAIN, UNSPECIFIED Qualifiers: Chest pain type: unspecified Qualified Code(s): R07.9 - Chest pain, unspecified (6) Diabetes Code(s): E11.9 - TYPE 2 DIABETES MELLITUS WITHOUT COMPLICATIONS (7) Hypertension Code(s): I10 - ESSENTIAL (PRIMARY) HYPERTENSION (8) Metastasis Code(s): C79.9 - SECONDARY MALIGNANT NEOPLASM OF UNSPECIFIED SITE Qualifiers: Area of secondary neoplastic involvement: respiratory structure Respiratory structure secondary neoplasm location: metastatic to lung Laterality: unspecified laterality Qualified Code(s): C78.00 - Secondary malignant neoplasm of unspecified lung (9) Shortness of breath Code(s): R06.02 - SHORTNESS OF BREATH (10) Uterine cancer Code(s): C55 - MALIGNANT NEOPLASM OF UTERUS, PART UNSPECIFIED
--- NOTE | 2017-01-08 23:52 | PN ---
Progress Note, Physician History of Present Illness: Pt seen and examined on 01/08/17 however note is being entered now - Current Medication List Current Medications: Active Medications Heparin Sodium (Porcine) (Heparin -) 5,000 unit IVPUSH PRN PRN Last Admin: 01/06/17 23:01 Dose: 5,000 unit Heparin Sodium (Porcine) (Heparin -) 1,000 unit IVPUSH PRN PRN Last Admin: 01/06/17 17:15 Dose: 1,000 unit Heparin Sodium (Porcine) 25, (000 unit/ Sodium Chloride) 500 mls @ 19 mls/hr IV TITR RICK; 950 UNIT/HR PRN Reason: Protocol Last Admin: 01/08/17 18:08 Dose: 20 mls/hr Insulin Aspart (Novolog Vial Sliding Scale -) 1 vial SQ ACHS RICK PRN Reason: Protocol Last Admin: 01/08/17 21:58 Dose: Not Given Losartan Potassium (Cozaar -) [address] [facility] Last Admin: 01/08/17 09:28 Dose: 25 mg Metformin HCl (Glucophage -) 1,000 mg PO DAILY@0700 [facility] Last Admin: 01/08/17 06:48 Dose: 1,000 mg Metoprolol Succinate (Toprol Xl -) [address] [facility] Last Admin: 01/08/17 09:29 Dose: 25 mg Ondansetron HCl (Zofran Injection) 4 mg IVPB Q6H PRN PRN Reason: NAUSEA Last Admin: 01/06/17 10:11 Dose: 4 mg Pantoprazole Sodium (Protonix -) [address] [facility] Sitagliptin Phosphate (Januvia -) 50 mg PO DAILY@0700 [facility] Last Admin: 01/08/17 06:49 Dose: 50 mg - Objective Vital Signs: Vital Signs Temperature 98.7 F 01/08/17 20:23 Pulse Rate 81 01/08/17 20:23 Respiratory Rate 18 01/08/17 20:23 Blood Pressure 124/72 01/08/17 20:23 O2 Sat by Pulse Oximetry (%) 96 01/08/17 20:23 Constitutional: Yes: No Distress Eyes: Yes: WNL HENT: Yes: WNL Neck: Yes: Supple Cardiovascular: Yes: WNL, Regular Rate and Rhythm Respiratory: Yes: WNL, Regular, CTA Bilaterally Gastrointestinal: Yes: WNL, Normal Bowel Sounds, Soft Labs: CBC, BMP 01/08/17 05:10 01/07/17 05:15 Problem List - Problems (1) Pulmonary embolism Assessment/Plan: S/P IVC filter Cont on IV heparin Reconsult heme about fdc AC H/H has remained stable Code(s): I26.99 - OTHER PULMONARY EMBOLISM WITHOUT ACUTE COR PULMONALE Qualifiers: Pulmonary embolism type: other Chronicity: acute Acute cor pulmonale presence: without acute cor pulmonale Qualified Code(s): I26.99 - Other pulmonary embolism without acute cor pulmonale (2) Afib Assessment/Plan: Heart rate controlled No AC in the past due to GI bleed Code(s): I48.91 - UNSPECIFIED ATRIAL FIBRILLATION (3) Diabetes Assessment/Plan: Cont novolog w/ sliding scale Cont januvia/metformin Code(s): E11.9 - TYPE 2 DIABETES MELLITUS WITHOUT COMPLICATIONS (4) Hypertension Assessment/Plan: BP stable Cont toprol/cozaar Code(s): I10 - ESSENTIAL (PRIMARY) HYPERTENSION (5) Uterine cancer Code(s): C55 - MALIGNANT NEOPLASM OF UTERUS, PART UNSPECIFIED
[2017-01-09] MEDS: metFORMIN HCL 500 MG TABLET (FP) PO SCH (06:23)
[2017-01-09] MEDS: INSULIN SLIDING SCALE (NOVOLOG) 1 VIAL SQ SCH ×4 (06:24→22:02)
[2017-01-09] MEDS: sitaGLIPtin PHOSPHATE 50 MG TABLET PO SCH (06:24)
[2017-01-09 06:36] LABS: BASOPHIL 0.6 % (0-2.0); EOSINOPHIL 1.5 % (0-4.5); MCH 29.2 pg (25.7-33.7); MCHC 32.5 g/dl (32.0-36.0); MEAN CELL VOLUME 89.7 fl (80-96); MEAN PLT VOLUME 8.6 fl (7.5-11.1); NEUTROPHILS 74.7 % (42.8-82.8); PLATELET COUNT 261 K/MM3 (134-434); RDW 13.7 % (11.6-15.6); WHITE BLOOD COUNT 4.1 K/mm3 (4.0-10.0)
[2017-01-09] MEDS ORDERED: PT OWN MED DRAWER 7, Y5N ONE (09:16)
[2017-01-09] MEDS: METOPROLOL SUCCINATE 25 MG TAB.SR.24H (FP) PO SCH (09:41)
[2017-01-09] MEDS: LOSARTAN POTASSIUM 50 MG TABLET (FP) PO SCH (09:41)
[2017-01-09] MEDS: PANTOPRAZOLE 40 MG TABLET (FP) PO SCH (09:41)
--- NOTE | 2017-01-09 10:19 | PN ---
Progress Note, Physician Chief Complaint: no distress TELE: AF, intermittent pacing - Current Medication List Current Medications: Active Medications Heparin Sodium (Porcine) (Heparin -) 5,000 unit IVPUSH PRN PRN Last Admin: 01/06/17 23:01 Dose: 5,000 unit Heparin Sodium (Porcine) (Heparin -) 1,000 unit IVPUSH PRN PRN Last Admin: 01/06/17 17:15 Dose: 1,000 unit Heparin Sodium (Porcine) 25, (000 unit/ Sodium Chloride) 500 mls @ 19 mls/hr IV TITR RICK; 950 UNIT/HR PRN Reason: Protocol Last Titration: 01/09/17 07:30 Dose: 900 unit/hr Insulin Aspart (Novolog Vial Sliding Scale -) 1 vial SQ ACHS RICK PRN Reason: Protocol Last Admin: 01/09/17 06:24 Dose: 2 units Losartan Potassium (Cozaar -) 25 mg PO DAILY [facility] Last Admin: 01/09/17 09:41 Dose: 25 mg Metformin HCl (Glucophage -) 1,000 mg PO DAILY@0700 [facility] Last Admin: 01/09/17 06:23 Dose: 1,000 mg Metoprolol Succinate (Toprol Xl -) 25 mg PO DAILY [facility] Last Admin: 01/09/17 09:41 Dose: 25 mg Ondansetron HCl (Zofran Injection) 4 mg IVPB Q6H PRN PRN Reason: NAUSEA Last Admin: 01/06/17 10:11 Dose: 4 mg Pantoprazole Sodium (Protonix -) 40 mg PO DAILY [facility] Last Admin: 01/09/17 09:41 Dose: 40 mg Sitagliptin Phosphate (Januvia -) 50 mg PO DAILY@0700 [facility] Last Admin: 01/09/17 06:24 Dose: 50 mg - Objective Vital Signs: Vital Signs Temperature 98.4 F 01/09/17 08:00 Pulse Rate 82 01/09/17 08:00 Respiratory Rate 20 01/09/17 08:00 Blood Pressure 152/90 01/09/17 08:00 O2 Sat by Pulse Oximetry (%) 96 01/08/17 20:23 Constitutional: Yes: No Distress Cardiovascular: Yes: Pulse Irregular Respiratory: Yes: CTA Bilaterally Gastrointestinal: Yes: Soft (non-tender) Edema: Yes Edema: LLE: 1+, RLE: 1+ Neurological: Yes: Alert Labs: CBC, BMP 01/09/17 05:15 Laboratory Tests 01/09/17 01/09/17 01/09/17 05:15 05:15 05:15 WBC 4.1 Hgb 9.6 L Plt Count 261 PTT (Actin FS) 86.2 H D Sodium Pending Potassium Pending BUN Pending Creatinine Pending - ....Imaging EKG: Image Reviewed Assessment/Plan IMP: Acute pulmonary embolism, with h/o uterine bleeding and GI bleeding now s/p IVC filter History uterine CA with suspected pulmonary mets, history uterine bleeding and now GI bleeding Permanent AF s/p PPM HTN REC: Acute Pulmonary Embolism -s/p IVC filter, still on heparin gtt -discussed with critical care -Trial of Lovenox would be indicated, if tolerated. Chronic AF-HR is adequately controlled -cont Toprol at current dose - HTN-adequately controlled -cont Toprol, Losartan
[2017-01-09 11:29] LABS: ALBUMIN 2.3 g/dl (3.4-5.0); ALK PHOS 76 U/L (45-117); ANION GAP 8 (8-16); BILIRUBIN,TOTAL 0.4 mg/dL (0.2-1.0); CALCIUM 9.9 mg/dL (8.5-10.1); CO2 26 mmol/L (21-32); CREATININE 0.8 mg/dL (0.55-1.02); GLUCOSE,RANDOM 146 mg/dL (74-106); SGOT/AST 16 U/L (15-37); SGPT/ALT 13 U/L (12-78)
[2017-01-09] MEDS: HEPARIN - 25,000 UNIT in SODIUM CHLORIDE 495 ML IV SCH (12:00)
--- NOTE | 2017-01-09 14:30 | PN ---
Progress Note (short form) - Note Progress Note: Patient seen in Telemetry unit. No CP or SOB. No occult bleeding noted. H&H Stable. Remains on IV Heparin. Intake & Output 01/06/17 01/07/17 01/08/17 01/09/17 23:59 23:59 23:59 23:59 Intake Total 805 402 864 570 Output Total 300 Balance 805 102 864 570 Last Vital Signs Temp Pulse Resp BP Pulse Ox 98.2 F 88 20 149/85 99 01/09/17 12:00 01/09/17 12:00 01/09/17 12:00 01/09/17 12:00 01/09/17 10:00 Active Medications Heparin Sodium (Porcine) (Heparin -) 5,000 unit IVPUSH PRN PRN Last Admin: 01/06/17 23:01 Dose: 5,000 unit Heparin Sodium (Porcine) (Heparin -) 1,000 unit IVPUSH PRN PRN Last Admin: 01/06/17 17:15 Dose: 1,000 unit Heparin Sodium (Porcine) 25, (000 unit/ Sodium Chloride) 500 mls @ 19 mls/hr IV TITR RICK; 950 UNIT/HR PRN Reason: Protocol Last Titration: 01/09/17 07:30 Dose: 900 unit/hr Insulin Aspart (Novolog Vial Sliding Scale -) 1 vial SQ ACHS RICK PRN Reason: Protocol Last Admin: 01/09/17 11:21 Dose: 2 units Losartan Potassium (Cozaar -) 25 mg PO DAILY [facility] Last Admin: 01/09/17 09:41 Dose: 25 mg Metformin HCl (Glucophage -) 1,000 mg PO DAILY@0700 [facility] Last Admin: 01/09/17 06:23 Dose: 1,000 mg Metoprolol Succinate (Toprol Xl -) 25 mg PO DAILY [facility] Last Admin: 01/09/17 09:41 Dose: 25 mg Ondansetron HCl (Zofran Injection) 4 mg IVPB Q6H PRN PRN Reason: NAUSEA Last Admin: 01/06/17 10:11 Dose: 4 mg Pantoprazole Sodium (Protonix -) 40 mg PO DAILY [facility] Last Admin: 01/09/17 09:41 Dose: 40 mg Sitagliptin Phosphate (Januvia -) 50 mg PO DAILY@0700 [facility] Last Admin: 01/09/17 06:24 Dose: 50 mg Constitutional: Yes: NAD Eyes: Yes: WNL HENT: Yes: WNL Neck: Yes: WNL Cardiovascular: Yes: Pulse Irregular, S1, S2 Respiratory: Yes: few basilar rhonchi Gastrointestinal: Yes: Normal Bowel Sounds, Soft Extremities: Yes: WNL Edema: No Labs: Laboratory Results - last 24 hr 01/08/17 01/08/17 01/08/17 15:00 17:55 21:48 WBC RBC Hgb Hct MCV MCHC RDW Plt Count MPV Neutrophils % Lymphocytes % Monocytes % Eosinophils % Basophils % PTT (Actin FS) 65.4 H Sodium Potassium Chloride Carbon Dioxide Anion Gap BUN Creatinine Creat Clearance w eGFR POC Glucometer 163.51746 149.41822 Random Glucose Calcium Total Bilirubin AST ALT Alkaline Phosphatase Total Protein Albumin 01/09/17 01/09/17 01/09/17 05:15 05:15 05:15 WBC 4.1 RBC 3.30 L Hgb 9.6 L Hct 29.6 L MCV 89.7 MCHC 32.5 RDW 13.7 Plt Count 261 MPV 8.6 Neutrophils % 74.7 Lymphocytes % 13.8 D Monocytes % 9.4 Eosinophils % 1.5 D Basophils % 0.6 PTT (Actin FS) 86.2 H D Sodium 142 Potassium 4.3 Chloride 108 H Carbon Dioxide 26 Anion Gap 8 BUN 16 D Creatinine 0.8 Creat Clearance w eGFR > 60 POC Glucometer Random Glucose 146 H D Calcium 9.9 Total Bilirubin 0.4 D AST 16 D ALT 13 Alkaline Phosphatase 76 Total Protein 6.0 L Albumin 2.3 L 01/09/17 01/09/17 01/09/17 05:49 11:19 13:15 WBC RBC Hgb Hct MCV MCHC RDW Plt Count MPV Neutrophils % Lymphocytes % Monocytes % Eosinophils % Basophils % PTT (Actin FS) 81.3 H Sodium Potassium Chloride Carbon Dioxide Anion Gap BUN Creatinine Creat Clearance w eGFR POC Glucometer [phone] Random Glucose Calcium Total Bilirubin AST ALT Alkaline Phosphatase Total Protein Albumin Assessment/Plan Problem List - Problems (1) Pulmonary embolism Code(s): I26.99 - OTHER PULMONARY EMBOLISM WITHOUT ACUTE COR PULMONALE Qualifiers: Pulmonary embolism type: other Chronicity: acute Acute cor pulmonale presence: without acute cor pulmonale Qualified Code(s): I26.99 - Other pulmonary embolism without acute cor pulmonale (2) Abnormal vaginal bleeding Code(s): N93.9 - ABNORMAL UTERINE AND VAGINAL BLEEDING, UNSPECIFIED (3) Afib Code(s): I48.91 - UNSPECIFIED ATRIAL FIBRILLATION (4) CVA (cerebral infarction) Code(s): I63.9 - CEREBRAL INFARCTION, UNSPECIFIED (5) Chest pain Code(s): R07.9 - CHEST PAIN, UNSPECIFIED Qualifiers: Chest pain type: unspecified Qualified Code(s): R07.9 - Chest pain, unspecified (6) Diabetes Code(s): E11.9 - TYPE 2 DIABETES MELLITUS WITHOUT COMPLICATIONS (7) Hypertension Code(s): I10 - ESSENTIAL (PRIMARY) HYPERTENSION (8) Metastasis Code(s): C79.9 - SECONDARY MALIGNANT NEOPLASM OF UNSPECIFIED SITE Qualifiers: Area of secondary neoplastic involvement: respiratory structure Respiratory structure secondary neoplasm location: metastatic to lung Laterality: unspecified laterality Qualified Code(s): C78.00 - Secondary malignant neoplasm of unspecified lung (9) Shortness of breath Code(s): R06.02 - SHORTNESS OF BREATH (10) Uterine cancer Code(s): C55 - MALIGNANT NEOPLASM OF UTERUS, PART UNSPECIFIED (11) GI (gastrointestinal bleed) Code(s): K92.2 - GASTROINTESTINAL HEMORRHAGE, UNSPECIFIED Assessment/Plan IV Heparin -> will need to discuss with oncology terminal operator AC -> (?) LMWH due to CA history + VTE O2 as needed Follow H&H Normal transfusion thresholds Dr Alex Problem List - Problems (1) Pulmonary embolism Code(s): I26.99 - OTHER PULMONARY EMBOLISM WITHOUT ACUTE COR PULMONALE Qualifiers: Pulmonary embolism type: other Chronicity: acute Acute cor pulmonale presence: without acute cor pulmonale Qualified Code(s): I26.99 - Other pulmonary embolism without acute cor pulmonale (2) Abnormal vaginal bleeding Code(s): N93.9 - ABNORMAL UTERINE AND VAGINAL BLEEDING, UNSPECIFIED (3) Afib Code(s): I48.91 - UNSPECIFIED ATRIAL FIBRILLATION (4) CVA (cerebral infarction) Code(s): I63.9 - CEREBRAL INFARCTION, UNSPECIFIED (5) Chest pain Code(s): R07.9 - CHEST PAIN, UNSPECIFIED Qualifiers: Chest pain type: unspecified Qualified Code(s): R07.9 - Chest pain, unspecified (6) Diabetes Code(s): E11.9 - TYPE 2 DIABETES MELLITUS WITHOUT COMPLICATIONS (7) Hypertension Code(s): I10 - ESSENTIAL (PRIMARY) HYPERTENSION (8) Metastasis Code(s): C79.9 - SECONDARY MALIGNANT NEOPLASM OF UNSPECIFIED SITE Qualifiers: Area of secondary neoplastic involvement: respiratory structure Respiratory structure secondary neoplasm location: metastatic to lung Laterality: unspecified laterality Qualified Code(s): C78.00 - Secondary malignant neoplasm of unspecified lung (9) Shortness of breath Code(s): R06.02 - SHORTNESS OF BREATH (10) Uterine cancer Code(s): C55 - MALIGNANT NEOPLASM OF UTERUS, PART UNSPECIFIED
--- NOTE | 2017-01-09 21:57 | PN ---
Progress Note (short form) - Note Progress Note: Patient seen and examined Remains on heparin therapy for P.E S/P IVC filter Last Vital Signs Temp Pulse Resp BP Pulse Ox 98.7 F 80 20 148/81 99 01/09/17 17:00 01/09/17 17:00 01/09/17 17:00 01/09/17 17:00 01/09/17 10:00 HEENT: JOHNNY, EOM Intact Oropharynx: No thrush, No mucositis Cor: atrial fib Lungs:diminished breath sounds bilaterallly Abd: Soft, Normal bowel sounds, No organomegaly Ext:No significant edema Skin: No rashes, Integument intact S/P CVA with right sided hemiparesis CBC, BMP 01/09/17 05:15 01/09/17 05:15 Current Medications Generic Name Dose Route Start Last Admin Trade Name Freq PRN Reason Stop Dose Admin Heparin Sodium (Porcine) 5,000 unit 01/06/17 10:56 01/06/17 23:01 Heparin - IVPUSH 5,000 unit PRN PRN Administration Heparin Sodium (Porcine) 1,000 unit 01/06/17 10:57 01/06/17 17:15 Heparin - IVPUSH 1,000 unit PRN PRN Administration Heparin Sodium (Porcine) 25, 500 mls @ 19 mls/hr 01/06/17 12:15 01/09/17 14:00 000 unit/ Sodium Chloride IV 850 unit/hr TITR RICK Titration Protocol 950 UNIT/HR Insulin Aspart 1 vial 01/06/17 07:00 01/09/17 18:02 Novolog Vial Sliding Scale - SQ Not Given ACHS RICK Protocol Losartan Potassium 25 mg 01/06/17 10:00 01/09/17 09:41 Cozaar - PO 25 mg DAILY RICK Administration Metformin HCl 1,000 mg 01/06/17 07:00 01/09/17 06:23 Glucophage - PO 1,000 mg DAILY@0700 RICK Administration Metoprolol Succinate 25 mg 01/05/17 14:45 01/09/17 09:41 Toprol Xl - PO 25 mg DAILY RICK Administration Ondansetron HCl 4 mg 01/06/17 08:35 01/06/17 10:11 Zofran Injection IVPB 4 mg Q6H PRN Administration NAUSEA Pantoprazole Sodium 40 mg 01/09/17 10:00 01/09/17 09:41 Protonix - PO 40 mg DAILY RICK Administration Sitagliptin Phosphate 50 mg 01/06/17 07:00 01/09/17 06:24 Januvia - PO 50 mg DAILY@0700 RICK Administration Impression: Acute P.E. in patient with history of stroke, atrial fib. PPM, endometrial ca - likely metastatic to lung, and reportedly prior P.E H/O Stage Ia endometrial ca previously treated with letrozole [facility] Vaginal bleeding from endometrial ca Presumed Lung mets S/P IVC filter Difficult problem- Hypercoagulable for all of the above reasons and will need indefinite a/c if feasible In face of active malignancy , ideal treatment is LMWH favored over coumadin Previously treated with letrozole (aromatase inhibitor) . Less than 10% response of letrozole for endometrial ca. Currently patient is on no therapy for endometrial ca. The letrozole is ineffective and the two hormones which are effective to some extent for metastatic endometrial ca are megestrol and tamoxifen. Both of these are thrombogenic.Treatment for metastatic endometrial ca therefore is problematic to say the least. Need to decide if patient can negotiate LMWH as a buttermaker helper treatment for her hypercoagulable state . If not alternative needs to be considered which may not be as efficacious.
--- NOTE | 2017-01-09 23:16 | PN ---
Progress Note, Physician - Current Medication List Current Medications: Active Medications Heparin Sodium (Porcine) (Heparin -) 5,000 unit IVPUSH PRN PRN Last Admin: 01/06/17 23:01 Dose: 5,000 unit Heparin Sodium (Porcine) (Heparin -) 1,000 unit IVPUSH PRN PRN Last Admin: 01/06/17 17:15 Dose: 1,000 unit Heparin Sodium (Porcine) 25, (000 unit/ Sodium Chloride) 500 mls @ 19 mls/hr IV TITR RICK; 950 UNIT/HR PRN Reason: Protocol Last Titration: 01/09/17 14:00 Dose: 850 unit/hr Insulin Aspart (Novolog Vial Sliding Scale -) 1 vial SQ ACHS RICK PRN Reason: Protocol Last Admin: 01/09/17 22:02 Dose: 4 units Losartan Potassium (Cozaar -) 25 mg PO DAILY [facility] Last Admin: 01/09/17 09:41 Dose: 25 mg Metformin HCl (Glucophage -) 1,000 mg PO DAILY@0700 [facility] Last Admin: 01/09/17 06:23 Dose: 1,000 mg Metoprolol Succinate (Toprol Xl -) 25 mg PO DAILY [facility] Last Admin: 01/09/17 09:41 Dose: 25 mg Ondansetron HCl (Zofran Injection) 4 mg IVPB Q6H PRN PRN Reason: NAUSEA Last Admin: 01/06/17 10:11 Dose: 4 mg Pantoprazole Sodium (Protonix -) 40 mg PO DAILY [facility] Last Admin: 01/09/17 09:41 Dose: 40 mg Sitagliptin Phosphate (Januvia -) 50 mg PO DAILY@0700 [facility] Last Admin: 01/09/17 06:24 Dose: 50 mg - Objective Vital Signs: Vital Signs Temperature 98.7 F 01/09/17 17:00 Pulse Rate 80 01/09/17 17:00 Respiratory Rate 20 01/09/17 17:00 Blood Pressure 148/81 01/09/17 17:00 O2 Sat by Pulse Oximetry (%) 99 01/09/17 10:00 Labs: CBC, BMP 01/09/17 05:15 01/09/17 05:15 Problem List - Problems (1) Pulmonary embolism Code(s): I26.99 - OTHER PULMONARY EMBOLISM WITHOUT ACUTE COR PULMONALE Qualifiers: Pulmonary embolism type: other Chronicity: acute Acute cor pulmonale presence: without acute cor pulmonale Qualified Code(s): I26.99 - Other pulmonary embolism without acute cor pulmonale (2) Afib Code(s): I48.91 - UNSPECIFIED ATRIAL FIBRILLATION (3) Diabetes Code(s): E11.9 - TYPE 2 DIABETES MELLITUS WITHOUT COMPLICATIONS (4) Hypertension Code(s): I10 - ESSENTIAL (PRIMARY) HYPERTENSION (5) Uterine cancer Code(s): C55 - MALIGNANT NEOPLASM OF UTERUS, PART UNSPECIFIED
[2017-01-10] MEDS ORDERED: PT OWN MED DRAWER 7, Y5N ONE (00:08)
[2017-01-10] MEDS: HEPARIN - 25,000 UNIT in SODIUM CHLORIDE 495 ML IV SCH ×3 (00:46→12:26)
[2017-01-10] MEDS: INSULIN SLIDING SCALE (NOVOLOG) 1 VIAL SQ SCH ×4 (06:06→21:51)
[2017-01-10] MEDS: sitaGLIPtin PHOSPHATE 50 MG TABLET PO SCH (06:07)
[2017-01-10] MEDS: metFORMIN HCL 500 MG TABLET (FP) PO SCH (06:07)
[2017-01-10 06:32] LABS: MCH 29.2 pg (25.7-33.7); MCHC 32.6 g/dl (32.0-36.0); MEAN CELL VOLUME 89.5 fl (80-96); MEAN PLT VOLUME 8.8 fl (7.5-11.1); PLATELET COUNT 275 K/MM3 (134-434); RDW 13.8 % (11.6-15.6)
--- NOTE | 2017-01-10 09:23 | PN ---
Progress Note, Physician Chief Complaint: no new complaints TELE: AF, intermittent pacing. - Current Medication List Current Medications: Active Medications Heparin Sodium (Porcine) (Heparin -) 5,000 unit IVPUSH PRN PRN Last Admin: 01/06/17 23:01 Dose: 5,000 unit Heparin Sodium (Porcine) (Heparin -) 1,000 unit IVPUSH PRN PRN Last Admin: 01/06/17 17:15 Dose: 1,000 unit Heparin Sodium (Porcine) 25, (000 unit/ Sodium Chloride) 500 mls @ 19 mls/hr IV TITR RICK; 950 UNIT/HR PRN Reason: Protocol Last Admin: 01/10/17 00:46 Dose: 17 mls/hr Insulin Aspart (Novolog Vial Sliding Scale -) 1 vial SQ ACHS RICK PRN Reason: Protocol Last Admin: 01/10/17 06:06 Dose: Not Given Losartan Potassium (Cozaar -) 25 mg PO DAILY [facility] Last Admin: 01/09/17 09:41 Dose: 25 mg Metformin HCl (Glucophage -) 1,000 mg PO DAILY@0700 [facility] Last Admin: 01/10/17 06:07 Dose: Not Given Metoprolol Succinate (Toprol Xl -) 25 mg PO DAILY [facility] Last Admin: 01/09/17 09:41 Dose: 25 mg Ondansetron HCl (Zofran Injection) 4 mg IVPB Q6H PRN PRN Reason: NAUSEA Last Admin: 01/06/17 10:11 Dose: 4 mg Pantoprazole Sodium (Protonix -) 40 mg PO DAILY [facility] Last Admin: 01/09/17 09:41 Dose: 40 mg Sitagliptin Phosphate (Januvia -) 50 mg PO DAILY@0700 [facility] Last Admin: 01/10/17 06:07 Dose: Not Given - Objective Vital Signs: Vital Signs Temperature 97.6 F 01/10/17 06:00 Pulse Rate 80 01/10/17 06:00 Respiratory Rate 20 01/10/17 06:00 Blood Pressure 134/82 01/10/17 06:00 O2 Sat by Pulse Oximetry (%) 99 01/09/17 22:00 Constitutional: Yes: No Distress Eyes: Yes: Conjunctiva Clear Cardiovascular: Yes: Pulse Irregular Respiratory: Yes: CTA Bilaterally Gastrointestinal: Yes: Soft Edema: No Neurological: Yes: Alert, Oriented Labs: CBC, BMP 01/10/17 05:20 01/09/17 05:15 Laboratory Tests 01/09/17 01/10/17 01/10/17 05:15 05:20 05:20 WBC 4.0 Hgb 9.8 L Plt Count 275 PTT (Actin FS) 72.8 H Potassium 4.3 Creatinine 0.8 - ....Imaging EKG: Image Reviewed Assessment/Plan IMP: Acute pulmonary embolism, with h/o uterine bleeding and GI bleeding now s/p IVC filter History uterine CA with suspected pulmonary mets, history uterine bleeding and now GI bleeding Permanent AF s/p PPM HTN REC: Acute Pulmonary Embolism -s/p IVC filter, still on heparin gtts -Trial of Lovenox would be indicated, if tolerated. -Would switch while inpatient and observe for 1-2 days prior to discharge
[2017-01-10] MEDS: LOSARTAN POTASSIUM 50 MG TABLET (FP) PO SCH (10:26)
[2017-01-10] MEDS: PANTOPRAZOLE 40 MG TABLET (FP) PO SCH (10:26)
[2017-01-10] MEDS: METOPROLOL SUCCINATE 25 MG TAB.SR.24H (FP) PO SCH (10:27)
--- NOTE | 2017-01-10 11:07 | PN ---
Progress Note, Physician History of Present Illness: pulmonary alert,nad,-c/o soB,-coffee grounds.pt remains on heparin drip - Current Medication List Current Medications: Active Medications Heparin Sodium (Porcine) (Heparin -) 5,000 unit IVPUSH PRN PRN Last Admin: 01/06/17 23:01 Dose: 5,000 unit Heparin Sodium (Porcine) (Heparin -) 1,000 unit IVPUSH PRN PRN Last Admin: 01/06/17 17:15 Dose: 1,000 unit Heparin Sodium (Porcine) 25, (000 unit/ Sodium Chloride) 500 mls @ 19 mls/hr IV TITR RICK; 950 UNIT/HR PRN Reason: Protocol Last Admin: 01/10/17 08:30 Dose: 17 mls/hr Insulin Aspart (Novolog Vial Sliding Scale -) 1 vial SQ ACHS RICK PRN Reason: Protocol Last Admin: 01/10/17 06:06 Dose: Not Given Losartan Potassium (Cozaar -) 25 mg PO DAILY [facility] Last Admin: 01/10/17 10:26 Dose: 25 mg Metformin HCl (Glucophage -) 1,000 mg PO DAILY@0700 [facility] Last Admin: 01/10/17 06:07 Dose: Not Given Metoprolol Succinate (Toprol Xl -) 25 mg PO DAILY [facility] Last Admin: 01/10/17 10:27 Dose: 25 mg Ondansetron HCl (Zofran Injection) 4 mg IVPB Q6H PRN PRN Reason: NAUSEA Last Admin: 01/06/17 10:11 Dose: 4 mg Pantoprazole Sodium (Protonix -) 40 mg PO DAILY [facility] Last Admin: 01/10/17 10:26 Dose: 40 mg Sitagliptin Phosphate (Januvia -) 50 mg PO DAILY@0700 [facility] Last Admin: 01/10/17 06:07 Dose: Not Given - Objective Vital Signs: Vital Signs Temperature 99.4 F 01/10/17 10:00 Pulse Rate 72 01/10/17 10:00 Respiratory Rate 20 01/10/17 10:00 Blood Pressure 127/60 01/10/17 10:00 O2 Sat by Pulse Oximetry (%) 99 01/09/17 22:00 Constitutional: Yes: Well Nourished, Calm Eyes: Yes: WNL HENT: Yes: WNL Neck: Yes: WNL Cardiovascular: Yes: Pulse Irregular, S1, S2 Respiratory: Yes: CTA Bilaterally Gastrointestinal: Yes: Normal Bowel Sounds, Soft Extremities: Yes: WNL Edema: No Labs: CBC, BMP 01/10/17 05:20 01/09/17 05:15 Problem List - Problems (1) GI (gastrointestinal bleed) Code(s): K92.2 - GASTROINTESTINAL HEMORRHAGE, UNSPECIFIED Assessment/Plan Problem List - Problems (1) Pulmonary embolism Code(s): I26.99 - OTHER PULMONARY EMBOLISM WITHOUT ACUTE COR PULMONALE Qualifiers: Pulmonary embolism type: other Chronicity: acute Acute cor pulmonale presence: without acute cor pulmonale Qualified Code(s): I26.99 - Other pulmonary embolism without acute cor pulmonale (2) Abnormal vaginal bleeding Code(s): N93.9 - ABNORMAL UTERINE AND VAGINAL BLEEDING, UNSPECIFIED (3) Afib Code(s): I48.91 - UNSPECIFIED ATRIAL FIBRILLATION (4) CVA (cerebral infarction) Code(s): I63.9 - CEREBRAL INFARCTION, UNSPECIFIED (5) Chest pain Code(s): R07.9 - CHEST PAIN, UNSPECIFIED Qualifiers: Chest pain type: unspecified Qualified Code(s): R07.9 - Chest pain, unspecified (6) Diabetes Code(s): E11.9 - TYPE 2 DIABETES MELLITUS WITHOUT COMPLICATIONS (7) Hypertension Code(s): I10 - ESSENTIAL (PRIMARY) HYPERTENSION (8) Metastasis Code(s): C79.9 - SECONDARY MALIGNANT NEOPLASM OF UNSPECIFIED SITE Qualifiers: Area of secondary neoplastic involvement: respiratory structure Respiratory structure secondary neoplasm location: metastatic to lung Laterality: unspecified laterality Qualified Code(s): C78.00 - Secondary malignant neoplasm of unspecified lung (9) Shortness of breath Code(s): R06.02 - SHORTNESS OF BREATH (10) Uterine cancer Code(s): C55 - MALIGNANT NEOPLASM OF UTERUS, PART UNSPECIFIED Assessment/Plan IV Heparin Consider lovenox O2 as needed Follow H&H Normal transfusion thresholds DR RUSSELL
--- NOTE | 2017-01-10 23:04 | PN ---
Progress Note (short form) - Note Progress Note: Patient seen and examined 87 y/o with metastatic endometrial cancer, uterine bleeding, PE nl renal/liver function On heparin drip to switch to lovenix , if feasible will get palliative care team involved
--- NOTE | 2017-01-10 23:24 | PN ---
Progress Note, Physician - Current Medication List Current Medications: Active Medications Heparin Sodium (Porcine) (Heparin -) 5,000 unit IVPUSH PRN PRN Last Admin: 01/06/17 23:01 Dose: 5,000 unit Heparin Sodium (Porcine) (Heparin -) 1,000 unit IVPUSH PRN PRN Last Admin: 01/06/17 17:15 Dose: 1,000 unit Heparin Sodium (Porcine) 25, (000 unit/ Sodium Chloride) 500 mls @ 19 mls/hr IV TITR RICK; 950 UNIT/HR PRN Reason: Protocol Last Admin: 01/10/17 12:26 Dose: Not Given Insulin Aspart (Novolog Vial Sliding Scale -) 1 vial SQ ACHS RICK PRN Reason: Protocol Last Admin: 01/10/17 21:51 Dose: 2 units Losartan Potassium (Cozaar -) 25 mg PO DAILY [facility] Last Admin: 01/10/17 10:26 Dose: 25 mg Metformin HCl (Glucophage -) 1,000 mg PO DAILY@0700 [facility] Last Admin: 01/10/17 06:07 Dose: Not Given Metoprolol Succinate (Toprol Xl -) 25 mg PO DAILY [facility] Last Admin: 01/10/17 10:27 Dose: 25 mg Ondansetron HCl (Zofran Injection) 4 mg IVPB Q6H PRN PRN Reason: NAUSEA Last Admin: 01/06/17 10:11 Dose: 4 mg Pantoprazole Sodium (Protonix -) 40 mg PO DAILY [facility] Last Admin: 01/10/17 10:26 Dose: 40 mg Sitagliptin Phosphate (Januvia -) 50 mg PO DAILY@0700 [facility] Last Admin: 01/10/17 06:07 Dose: Not Given - Objective Vital Signs: Vital Signs Temperature 98.2 F 01/10/17 20:47 Pulse Rate 76 01/10/17 20:47 Respiratory Rate 18 01/10/17 20:47 Blood Pressure 143/67 01/10/17 20:47 O2 Sat by Pulse Oximetry (%) 99 01/10/17 20:47 Labs: CBC, BMP 01/10/17 05:20 01/09/17 05:15 Problem List - Problems (1) Pulmonary embolism Code(s): I26.99 - OTHER PULMONARY EMBOLISM WITHOUT ACUTE COR PULMONALE Qualifiers: Pulmonary embolism type: other Chronicity: acute Acute cor pulmonale presence: without acute cor pulmonale Qualified Code(s): I26.99 - Other pulmonary embolism without acute cor pulmonale (2) Afib Code(s): I48.91 - UNSPECIFIED ATRIAL FIBRILLATION (3) Diabetes Code(s): E11.9 - TYPE 2 DIABETES MELLITUS WITHOUT COMPLICATIONS (4) Hypertension Code(s): I10 - ESSENTIAL (PRIMARY) HYPERTENSION (5) Uterine cancer Code(s): C55 - MALIGNANT NEOPLASM OF UTERUS, PART UNSPECIFIED
[2017-01-11] MEDS ORDERED: PT OWN MED DRAWER 7, Y5N ONE (05:43)
[2017-01-11] MEDS: INSULIN SLIDING SCALE (NOVOLOG) 1 VIAL SQ SCH ×4 (06:44→21:07)
[2017-01-11] MEDS: metFORMIN HCL 500 MG TABLET (FP) PO SCH (06:45)
[2017-01-11] MEDS: sitaGLIPtin PHOSPHATE 50 MG TABLET PO SCH (06:47)
[2017-01-11 06:51] LABS: MCH 29.4 pg (25.7-33.7); MCHC 32.7 g/dl (32.0-36.0); MEAN PLT VOLUME 8.3 fl (7.5-11.1); PLATELET COUNT 274 K/MM3 (134-434); RDW 14.2 % (11.6-15.6); WHITE BLOOD COUNT 3.9 K/mm3 (4.0-10.0)
--- NOTE | 2017-01-11 09:34 | PN ---
Progress Note, Physician Chief Complaint: comfortable TELE: rate controlled AF with intermittent V pacing - Current Medication List Current Medications: Active Medications Heparin Sodium (Porcine) (Heparin -) 5,000 unit IVPUSH PRN PRN Last Admin: 01/06/17 23:01 Dose: 5,000 unit Heparin Sodium (Porcine) (Heparin -) 1,000 unit IVPUSH PRN PRN Last Admin: 01/06/17 17:15 Dose: 1,000 unit Heparin Sodium (Porcine) 25, (000 unit/ Sodium Chloride) 500 mls @ 19 mls/hr IV TITR RICK; 950 UNIT/HR PRN Reason: Protocol Last Admin: 01/10/17 12:26 Dose: Not Given Insulin Aspart (Novolog Vial Sliding Scale -) 1 vial SQ ACHS RICK PRN Reason: Protocol Last Admin: 01/11/17 06:44 Dose: 2 units Losartan Potassium (Cozaar -) 25 mg PO DAILY [facility] Last Admin: 01/10/17 10:26 Dose: 25 mg Metformin HCl (Glucophage -) 1,000 mg PO DAILY@0700 [facility] Last Admin: 01/11/17 06:45 Dose: 1,000 mg Metoprolol Succinate (Toprol Xl -) 25 mg PO DAILY [facility] Last Admin: 01/10/17 10:27 Dose: 25 mg Ondansetron HCl (Zofran Injection) 4 mg IVPB Q6H PRN PRN Reason: NAUSEA Last Admin: 01/06/17 10:11 Dose: 4 mg Pantoprazole Sodium (Protonix -) 40 mg PO DAILY [facility] Last Admin: 01/10/17 10:26 Dose: 40 mg Sitagliptin Phosphate (Januvia -) 50 mg PO DAILY@0700 [facility] Last Admin: 01/11/17 06:47 Dose: 50 mg - Objective Vital Signs: Vital Signs Temperature 98.8 F 01/11/17 06:00 Pulse Rate 80 01/11/17 06:00 Respiratory Rate 18 01/11/17 06:00 Blood Pressure 125/58 01/11/17 06:00 O2 Sat by Pulse Oximetry (%) 99 01/10/17 20:47 Constitutional: Yes: No Distress, Calm Cardiovascular: Yes: Pulse Irregular Respiratory: Yes: CTA Bilaterally Gastrointestinal: Yes: Soft Edema: No Neurological: Yes: Alert Labs: CBC, BMP 01/11/17 05:20 01/09/17 05:15 Laboratory Tests 01/09/17 01/11/17 01/11/17 05:15 05:20 05:20 WBC 3.9 L RBC 3.41 L Hgb 10.0 L Plt Count 274 PTT (Actin FS) 65.7 H Potassium 4.3 Creatinine 0.8 - ....Imaging EKG: Image Reviewed Assessment/Plan IMP: Acute pulmonary embolism, with h/o uterine bleeding and GI bleeding now s/p IVC filter History uterine CA with suspected pulmonary mets, history uterine bleeding and now GI bleeding Permanent AF s/p PPM HTN REC: Acute Pulmonary Embolism -s/p IVC filter, still on heparin gtts -Trial of Lovenox would be indicated, if tolerated. -Would switch while inpatient and observe for 1-2 days prior to discharge
[2017-01-11] MEDS: LOSARTAN POTASSIUM 50 MG TABLET (FP) PO SCH (10:11)
[2017-01-11] MEDS: PANTOPRAZOLE 40 MG TABLET (FP) PO SCH (10:12)
[2017-01-11] MEDS: METOPROLOL SUCCINATE 25 MG TAB.SR.24H (FP) PO SCH (10:12)
[2017-01-11] MEDS: HEPARIN - 25,000 UNIT in SODIUM CHLORIDE 495 ML IV SCH (12:15)
--- NOTE | 2017-01-11 15:41 | PN ---
Progress Note (short form) - Note Progress Note: Patient seen and examined Feels ok Last Vital Signs Temp Pulse Resp BP Pulse Ox 98.9 F 85 18 146/88 99 01/11/17 13:08 01/11/17 13:08 01/11/17 13:08 01/11/17 13:08 01/11/17 09:00 Cor: RSR, No murmurs, No gallops Lungs: Clear to P&A Abd: Soft, Normal bowel sounds, No organomegaly Ext:No significant edema Abnormal Lab Results 01/11/17 01/11/17 05:20 05:20 WBC 3.9 L RBC 3.41 L Hgb 10.0 L Hct 30.7 L PTT (Actin FS) 65.7 H Active Medications Generic Name Dose Route Start Last Admin Trade Name Freq PRN Reason Stop Dose Admin Heparin Sodium (Porcine) 5,000 unit 01/06/17 10:56 01/06/17 23:01 Heparin - IVPUSH 5,000 unit PRN PRN Administration Heparin Sodium (Porcine) 1,000 unit 01/06/17 10:57 01/06/17 17:15 Heparin - IVPUSH 1,000 unit PRN PRN Administration Heparin Sodium (Porcine) 25, 500 mls @ 19 mls/hr 01/06/17 12:15 01/11/17 12:15 000 unit/ Sodium Chloride IV 17 mls/hr TITR RICK Administration Protocol 950 UNIT/HR Insulin Aspart 1 vial 01/06/17 07:00 01/11/17 12:13 Novolog Vial Sliding Scale - SQ 2 units ACHS RICK Administration Protocol Losartan Potassium 25 mg 01/06/17 10:00 01/11/17 10:11 Cozaar - PO 25 mg DAILY RICK Administration Metformin HCl 1,000 mg 01/06/17 07:00 01/11/17 06:45 Glucophage - PO 1,000 mg DAILY@0700 RICK Administration Metoprolol Succinate 25 mg 01/05/17 14:45 01/11/17 10:12 Toprol Xl - PO 25 mg DAILY RICK Administration Ondansetron HCl 4 mg 01/06/17 08:35 01/06/17 10:11 Zofran Injection IVPB 4 mg Q6H PRN Administration NAUSEA Pantoprazole Sodium 40 mg 01/09/17 10:00 01/11/17 10:12 Protonix - PO 40 mg DAILY RICK Administration Sitagliptin Phosphate 50 mg 01/06/17 07:00 01/11/17 06:47 Januvia - PO 50 mg DAILY@0700 RICK Administration 87 y/o with metastatic endometrial cancer, uterine bleeding, PE nl renal/liver function On heparin drip to switch to lovenix , if feasible will get palliative care team involved will need family meeting to discuss prognosis
--- NOTE | 2017-01-11 16:09 | PN ---
Progress Note (short form) - Note Progress Note: No CP or SOB. No occult bleeding noted. Remains on IV Heparin. Intake & Output 01/08/17 01/09/17 01/10/17 01/11/17 23:59 23:59 23:59 23:59 Intake Total 864 720 891 324 Balance 864 720 891 324 Last Vital Signs Temp Pulse Resp BP Pulse Ox 98.9 F 85 18 146/88 99 01/11/17 13:08 01/11/17 13:08 01/11/17 13:08 01/11/17 13:08 01/11/17 09:00 Active Medications Heparin Sodium (Porcine) (Heparin -) 5,000 unit IVPUSH PRN PRN Last Admin: 01/06/17 23:01 Dose: 5,000 unit Heparin Sodium (Porcine) (Heparin -) 1,000 unit IVPUSH PRN PRN Last Admin: 01/06/17 17:15 Dose: 1,000 unit Heparin Sodium (Porcine) 25, (000 unit/ Sodium Chloride) 500 mls @ 19 mls/hr IV TITR RICK; 950 UNIT/HR PRN Reason: Protocol Last Admin: 01/11/17 12:15 Dose: 17 mls/hr Insulin Aspart (Novolog Vial Sliding Scale -) 1 vial SQ ACHS RICK PRN Reason: Protocol Last Admin: 01/11/17 12:13 Dose: 2 units Losartan Potassium (Cozaar -) 25 mg PO DAILY [facility] Last Admin: 01/11/17 10:11 Dose: 25 mg Metformin HCl (Glucophage -) 1,000 mg PO DAILY@0700 [facility] Last Admin: 01/11/17 06:45 Dose: 1,000 mg Metoprolol Succinate (Toprol Xl -) 25 mg PO DAILY [facility] Last Admin: 01/11/17 10:12 Dose: 25 mg Ondansetron HCl (Zofran Injection) 4 mg IVPB Q6H PRN PRN Reason: NAUSEA Last Admin: 01/06/17 10:11 Dose: 4 mg Pantoprazole Sodium (Protonix -) 40 mg PO DAILY [facility] Last Admin: 01/11/17 10:12 Dose: 40 mg Sitagliptin Phosphate (Januvia -) 50 mg PO DAILY@0700 [facility] Last Admin: 01/11/17 06:47 Dose: 50 mg Constitutional: Yes: NAD Eyes: Yes: WNL HENT: Yes: WNL Neck: Yes: WNL Cardiovascular: Yes: Pulse Irregular, S1, S2 Respiratory: Yes: few basilar rhonchi Gastrointestinal: Yes: Normal Bowel Sounds, Soft Extremities: Yes: WNL Edema: No Labs: Laboratory Results - last 24 hr 01/10/17 01/10/17 01/10/17 12:01 16:39 21:13 WBC RBC Hgb Hct MCV MCHC RDW Plt Count MPV PTT (Actin FS) POC Glucometer 250.68844 199.19091 198.56996 01/11/17 01/11/17 01/11/17 05:20 05:20 05:36 WBC 3.9 L RBC 3.41 L Hgb 10.0 L Hct 30.7 L MCV 90.0 MCHC 32.7 RDW 14.2 Plt Count 274 MPV 8.3 PTT (Actin FS) 65.7 H POC Glucometer 175.28359 01/11/17 11:53 WBC RBC Hgb Hct MCV MCHC RDW Plt Count MPV PTT (Actin FS) POC Glucometer 159.39276 Assessment/Plan Problem List - Problems (1) Pulmonary embolism Code(s): I26.99 - OTHER PULMONARY EMBOLISM WITHOUT ACUTE COR PULMONALE Qualifiers: Pulmonary embolism type: other Chronicity: acute Acute cor pulmonale presence: without acute cor pulmonale Qualified Code(s): I26.99 - Other pulmonary embolism without acute cor pulmonale (2) Abnormal vaginal bleeding Code(s): N93.9 - ABNORMAL UTERINE AND VAGINAL BLEEDING, UNSPECIFIED (3) Afib Code(s): I48.91 - UNSPECIFIED ATRIAL FIBRILLATION (4) CVA (cerebral infarction) Code(s): I63.9 - CEREBRAL INFARCTION, UNSPECIFIED (5) Chest pain Code(s): R07.9 - CHEST PAIN, UNSPECIFIED Qualifiers: Chest pain type: unspecified Qualified Code(s): R07.9 - Chest pain, unspecified (6) Diabetes Code(s): E11.9 - TYPE 2 DIABETES MELLITUS WITHOUT COMPLICATIONS (7) Hypertension Code(s): I10 - ESSENTIAL (PRIMARY) HYPERTENSION (8) Metastasis Code(s): C79.9 - SECONDARY MALIGNANT NEOPLASM OF UNSPECIFIED SITE Qualifiers: Area of secondary neoplastic involvement: respiratory structure Respiratory structure secondary neoplasm location: metastatic to lung Laterality: unspecified laterality Qualified Code(s): C78.00 - Secondary malignant neoplasm of unspecified lung (9) Shortness of breath Code(s): R06.02 - SHORTNESS OF BREATH (10) Uterine cancer Code(s): C55 - MALIGNANT NEOPLASM OF UTERUS, PART UNSPECIFIED (11) GI (gastrointestinal bleed) Code(s): K92.2 - GASTROINTESTINAL HEMORRHAGE, UNSPECIFIED Assessment/Plan Will be switched to LMWH O2 as needed Follow H&H Normal transfusion thresholds Dr Alex Problem List - Problems (1) Pulmonary embolism Code(s): I26.99 - OTHER PULMONARY EMBOLISM WITHOUT ACUTE COR PULMONALE Qualifiers: Pulmonary embolism type: other Chronicity: acute Acute cor pulmonale presence: without acute cor pulmonale Qualified Code(s): I26.99 - Other pulmonary embolism without acute cor pulmonale (2) Abnormal vaginal bleeding Code(s): N93.9 - ABNORMAL UTERINE AND VAGINAL BLEEDING, UNSPECIFIED (3) Afib Code(s): I48.91 - UNSPECIFIED ATRIAL FIBRILLATION (4) CVA (cerebral infarction) Code(s): I63.9 - CEREBRAL INFARCTION, UNSPECIFIED (5) Chest pain Code(s): R07.9 - CHEST PAIN, UNSPECIFIED Qualifiers: Chest pain type: unspecified Qualified Code(s): R07.9 - Chest pain, unspecified (6) Diabetes Code(s): E11.9 - TYPE 2 DIABETES MELLITUS WITHOUT COMPLICATIONS (7) Hypertension Code(s): I10 - ESSENTIAL (PRIMARY) HYPERTENSION (8) Metastasis Code(s): C79.9 - SECONDARY MALIGNANT NEOPLASM OF UNSPECIFIED SITE Qualifiers: Area of secondary neoplastic involvement: respiratory structure Respiratory structure secondary neoplasm location: metastatic to lung Laterality: unspecified laterality Qualified Code(s): C78.00 - Secondary malignant neoplasm of unspecified lung (9) Shortness of breath Code(s): R06.02 - SHORTNESS OF BREATH (10) Uterine cancer Code(s): C55 - MALIGNANT NEOPLASM OF UTERUS, PART UNSPECIFIED
[2017-01-11] MEDS ORDERED: METOPROLOL SUCCINATE 25 MG TAB.SR.24H (FP) PO ONE (22:00)
[2017-01-11] MEDS: DOCUSATE SODIUM 100 MG CAPSULE (FP) PO SCH (22:12)
--- NOTE | 2017-01-12 00:28 | PN ---
Progress Note, Physician History of Present Illness: Pt seen and examined on 01/11/17 however note is being entered now - Current Medication List Current Medications: Active Medications Docusate Sodium (Colace -) 300 mg PO HS [facility] Last Admin: 01/11/17 22:12 Dose: 300 mg Heparin Sodium (Porcine) (Heparin -) 5,000 unit IVPUSH PRN PRN Last Admin: 01/06/17 23:01 Dose: 5,000 unit Heparin Sodium (Porcine) (Heparin -) 1,000 unit IVPUSH PRN PRN Last Admin: 01/06/17 17:15 Dose: 1,000 unit Hydrochlorothiazide (Hctz -) 25 mg PO DAILY RICK Heparin Sodium (Porcine) 25, (000 unit/ Sodium Chloride) 500 mls @ 19 mls/hr IV TITR RICK; 950 UNIT/HR PRN Reason: Protocol Last Admin: 01/11/17 12:15 Dose: 17 mls/hr Insulin Aspart (Novolog Vial Sliding Scale -) 1 vial SQ ACHS RICK PRN Reason: Protocol Last Admin: 01/11/17 21:07 Dose: Not Given Losartan Potassium (Cozaar -) 25 mg PO DAILY [facility] Last Admin: 01/11/17 10:11 Dose: 25 mg Metformin HCl (Glucophage -) 1,000 mg PO DAILY@0700 [facility] Last Admin: 01/11/17 06:45 Dose: 1,000 mg Metoprolol Succinate (Toprol Xl -) 25 mg PO BID [facility] Ondansetron HCl (Zofran Injection) 4 mg IVPB Q6H PRN PRN Reason: NAUSEA Last Admin: 01/06/17 10:11 Dose: 4 mg Pantoprazole Sodium (Protonix -) 40 mg PO DAILY [facility] Last Admin: 01/11/17 10:12 Dose: 40 mg Sitagliptin Phosphate (Januvia -) 50 mg PO DAILY@0700 [facility] Last Admin: 01/11/17 06:47 Dose: 50 mg - Objective Vital Signs: Vital Signs Temperature 99.3 F 01/11/17 18:00 Pulse Rate 86 01/11/17 18:00 Respiratory Rate 18 01/11/17 18:00 Blood Pressure 151/81 01/11/17 18:00 O2 Sat by Pulse Oximetry (%) 100 01/11/17 20:05 Labs: CBC, BMP 01/11/17 05:20 01/09/17 05:15 Problem List - Problems (1) Pulmonary embolism Code(s): I26.99 - OTHER PULMONARY EMBOLISM WITHOUT ACUTE COR PULMONALE Qualifiers: Pulmonary embolism type: other Chronicity: acute Acute cor pulmonale presence: without acute cor pulmonale Qualified Code(s): I26.99 - Other pulmonary embolism without acute cor pulmonale (2) Afib Code(s): I48.91 - UNSPECIFIED ATRIAL FIBRILLATION (3) Diabetes Code(s): E11.9 - TYPE 2 DIABETES MELLITUS WITHOUT COMPLICATIONS (4) Hypertension Code(s): I10 - ESSENTIAL (PRIMARY) HYPERTENSION (5) Uterine cancer Code(s): C55 - MALIGNANT NEOPLASM OF UTERUS, PART UNSPECIFIED
[2017-01-12] MEDS ORDERED: PT OWN MED DRAWER 7, Y5N ONE (06:41)
[2017-01-12] MEDS: INSULIN SLIDING SCALE (NOVOLOG) 1 VIAL SQ SCH ×4 (06:43→21:12)
[2017-01-12] MEDS: sitaGLIPtin PHOSPHATE 50 MG TABLET PO SCH (06:43)
[2017-01-12] MEDS: metFORMIN HCL 500 MG TABLET (FP) PO SCH (06:43)
[2017-01-12] MEDS: HEPARIN - 25,000 UNIT in SODIUM CHLORIDE 495 ML IV SCH ×2 (06:44→12:23)
--- NOTE | 2017-01-12 08:57 | PN ---
Progress Note, Physician Chief Complaint: comfortable History of Present Illness: TELE: rate controlled AF, with intermittent pacing - Current Medication List Current Medications: Active Medications Docusate Sodium (Colace -) 300 mg PO HS [facility] Last Admin: 01/11/17 22:12 Dose: 300 mg Heparin Sodium (Porcine) (Heparin -) 5,000 unit IVPUSH PRN PRN Last Admin: 01/06/17 23:01 Dose: 5,000 unit Heparin Sodium (Porcine) (Heparin -) 1,000 unit IVPUSH PRN PRN Last Admin: 01/06/17 17:15 Dose: 1,000 unit Hydrochlorothiazide (Hctz -) 25 mg PO DAILY [facility] Heparin Sodium (Porcine) 25, (000 unit/ Sodium Chloride) 500 mls @ 19 mls/hr IV TITR RICK; 950 UNIT/HR PRN Reason: Protocol Last Admin: 01/12/17 06:44 Dose: 17 mls/hr Insulin Aspart (Novolog Vial Sliding Scale -) 1 vial SQ ACHS RICK PRN Reason: Protocol Last Admin: 01/12/17 06:43 Dose: 2 units Losartan Potassium (Cozaar -) 25 mg PO DAILY [facility] Last Admin: 01/11/17 10:11 Dose: 25 mg Metformin HCl (Glucophage -) 1,000 mg PO DAILY@0700 [facility] Last Admin: 01/12/17 06:43 Dose: 1,000 mg Metoprolol Succinate (Toprol Xl -) 25 mg PO BID [facility] Ondansetron HCl (Zofran Injection) 4 mg IVPB Q6H PRN PRN Reason: NAUSEA Last Admin: 01/06/17 10:11 Dose: 4 mg Pantoprazole Sodium (Protonix -) 40 mg PO DAILY [facility] Last Admin: 01/11/17 10:12 Dose: 40 mg Sitagliptin Phosphate (Januvia -) 50 mg PO DAILY@0700 [facility] Last Admin: 01/12/17 06:43 Dose: 50 mg - Objective Vital Signs: Vital Signs Temperature 98 F 01/12/17 06:30 Pulse Rate 80 01/12/17 06:30 Respiratory Rate 18 01/12/17 06:30 Blood Pressure 151/74 01/12/17 06:30 O2 Sat by Pulse Oximetry (%) 100 01/11/17 20:05 Constitutional: Yes: No Distress Eyes: Yes: Conjunctiva Clear Cardiovascular: Yes: Pulse Irregular Respiratory: Yes: CTA Bilaterally Gastrointestinal: Yes: Soft Edema: No Labs: CBC, BMP 01/11/17 05:20 01/09/17 05:15 Assessment/Plan Metastatic uterine CA Acute pulmonary embolism s/p IVC filter Permanent AF REC: Heart rate is controlled. Transition to trial of Lovenox is the plan.
[2017-01-12] MEDS: LOSARTAN POTASSIUM 50 MG TABLET (FP) PO SCH (09:13)
[2017-01-12] MEDS: PANTOPRAZOLE 40 MG TABLET (FP) PO SCH (09:17)
[2017-01-12] MEDS: HYDROCHLOROTHIAZIDE 25 MG TABLET (FP) PO SCH (09:18)
[2017-01-12] MEDS: METOPROLOL SUCCINATE 25 MG TAB.SR.24H (FP) PO SCH ×2 (09:19→21:12)
--- NOTE | 2017-01-12 14:21 | PN ---
Progress Note (short form) - Note Progress Note: No CP or SOB. No occult bleeding noted. Remains on IV Heparin. Intake & Output 01/09/17 01/10/17 01/11/17 01/12/17 23:59 23:59 23:59 23:59 Intake Total 720 891 324 324 Balance 720 891 324 324 Weight 152 lb 4 oz Last Vital Signs Temp Pulse Resp BP Pulse Ox 98.4 F 80 18 151/74 100 01/12/17 10:00 01/12/17 06:30 01/12/17 10:00 01/12/17 06:30 01/12/17 10:00 Active Medications Docusate Sodium (Colace -) 300 mg PO HS [facility] Last Admin: 01/11/17 22:12 Dose: 300 mg Enoxaparin Sodium (Lovenox -) 70 mg SQ BID [facility] Hydrochlorothiazide (Hctz -) 25 mg PO DAILY [facility] Last Admin: 01/12/17 09:18 Dose: 25 mg Insulin Aspart (Novolog Vial Sliding Scale -) 1 vial SQ ACHS [facility] PRN Reason: Protocol Last Admin: 01/12/17 12:22 Dose: 2 units Losartan Potassium (Cozaar -) 25 mg PO DAILY [facility] Last Admin: 01/12/17 09:13 Dose: 25 mg Metformin HCl (Glucophage -) 1,000 mg PO DAILY@0700 [facility] Last Admin: 01/12/17 06:43 Dose: 1,000 mg Metoprolol Succinate (Toprol Xl -) 25 mg PO BID [facility] Last Admin: 01/12/17 09:19 Dose: 25 mg Ondansetron HCl (Zofran Injection) 4 mg IVPB Q6H PRN PRN Reason: NAUSEA Last Admin: 01/06/17 10:11 Dose: 4 mg Pantoprazole Sodium (Protonix -) 40 mg PO DAILY [facility] Last Admin: 01/12/17 09:17 Dose: 40 mg Sitagliptin Phosphate (Januvia -) 50 mg PO DAILY@0700 [facility] Last Admin: 01/12/17 06:43 Dose: 50 mg Constitutional: Yes: NAD Eyes: Yes: WNL HENT: Yes: WNL Neck: Yes: WNL Cardiovascular: Yes: Pulse Irregular, S1, S2 Respiratory: Yes: few basilar rhonchi Gastrointestinal: Yes: Normal Bowel Sounds, Soft Extremities: Yes: WNL Edema: No Labs: Laboratory Results - last 24 hr 01/11/17 01/11/17 01/12/17 17:28 20:59 05:20 PTT (Actin FS) 73.3 H POC Glucometer 163.19397 133.49305 01/12/17 01/12/17 05:56 11:30 PTT (Actin FS) POC Glucometer 154.17622 158.03254 Assessment/Plan Problem List - Problems (1) Pulmonary embolism Code(s): I26.99 - OTHER PULMONARY EMBOLISM WITHOUT ACUTE COR PULMONALE Qualifiers: Pulmonary embolism type: other Chronicity: acute Acute cor pulmonale presence: without acute cor pulmonale Qualified Code(s): I26.99 - Other pulmonary embolism without acute cor pulmonale (2) Abnormal vaginal bleeding Code(s): N93.9 - ABNORMAL UTERINE AND VAGINAL BLEEDING, UNSPECIFIED (3) Afib Code(s): I48.91 - UNSPECIFIED ATRIAL FIBRILLATION (4) CVA (cerebral infarction) Code(s): I63.9 - CEREBRAL INFARCTION, UNSPECIFIED (5) Chest pain Code(s): R07.9 - CHEST PAIN, UNSPECIFIED Qualifiers: Chest pain type: unspecified Qualified Code(s): R07.9 - Chest pain, unspecified (6) Diabetes Code(s): E11.9 - TYPE 2 DIABETES MELLITUS WITHOUT COMPLICATIONS (7) Hypertension Code(s): I10 - ESSENTIAL (PRIMARY) HYPERTENSION (8) Metastasis Code(s): C79.9 - SECONDARY MALIGNANT NEOPLASM OF UNSPECIFIED SITE Qualifiers: Area of secondary neoplastic involvement: respiratory structure Respiratory structure secondary neoplasm location: metastatic to lung Laterality: unspecified laterality Qualified Code(s): C78.00 - Secondary malignant neoplasm of unspecified lung (9) Shortness of breath Code(s): R06.02 - SHORTNESS OF BREATH (10) Uterine cancer Code(s): C55 - MALIGNANT NEOPLASM OF UTERUS, PART UNSPECIFIED (11) GI (gastrointestinal bleed) Code(s): K92.2 - GASTROINTESTINAL HEMORRHAGE, UNSPECIFIED Assessment/Plan Will switch to LMWH O2 as needed Follow H&H Normal transfusion thresholds Dr Alex Problem List - Problems (1) Pulmonary embolism Code(s): I26.99 - OTHER PULMONARY EMBOLISM WITHOUT ACUTE COR PULMONALE Qualifiers: Pulmonary embolism type: other Chronicity: acute Acute cor pulmonale presence: without acute cor pulmonale Qualified Code(s): I26.99 - Other pulmonary embolism without acute cor pulmonale (2) Abnormal vaginal bleeding Code(s): N93.9 - ABNORMAL UTERINE AND VAGINAL BLEEDING, UNSPECIFIED (3) Afib Code(s): I48.91 - UNSPECIFIED ATRIAL FIBRILLATION (4) CVA (cerebral infarction) Code(s): I63.9 - CEREBRAL INFARCTION, UNSPECIFIED (5) Chest pain Code(s): R07.9 - CHEST PAIN, UNSPECIFIED Qualifiers: Chest pain type: unspecified Qualified Code(s): R07.9 - Chest pain, unspecified (6) Diabetes Code(s): E11.9 - TYPE 2 DIABETES MELLITUS WITHOUT COMPLICATIONS (7) Hypertension Code(s): I10 - ESSENTIAL (PRIMARY) HYPERTENSION (8) Metastasis Code(s): C79.9 - SECONDARY MALIGNANT NEOPLASM OF UNSPECIFIED SITE Qualifiers: Area of secondary neoplastic involvement: respiratory structure Respiratory structure secondary neoplasm location: metastatic to lung Laterality: unspecified laterality Qualified Code(s): C78.00 - Secondary malignant neoplasm of unspecified lung (9) Shortness of breath Code(s): R06.02 - SHORTNESS OF BREATH (10) Uterine cancer Code(s): C55 - MALIGNANT NEOPLASM OF UTERUS, PART UNSPECIFIED
[2017-01-12] MEDS: ENOXAPARIN NA (PORCINE) 60 MG/0.6 ML DISP.SYRIN SQ SCH (15:03)
[2017-01-12] MEDS: DOCUSATE SODIUM 100 MG CAPSULE (FP) PO SCH (21:11)
[2017-01-12] MEDS ORDERED: ENOXAPARIN NA (PORCINE) 60 MG/0.6 ML DISP.SYRIN SQ SCH (22:00)
--- NOTE | 2017-01-12 23:22 | PN ---
Progress Note (short form) - Note Progress Note: Patient seen and examined Feels ok Last Vital Signs Temp Pulse Resp BP Pulse Ox 98.9 F 85 18 146/88 99 01/11/17 13:08 01/11/17 13:08 01/11/17 13:08 01/11/17 13:08 01/11/17 09:00 Cor: RSR, No murmurs, No gallops Lungs: Clear to P&A Abd: Soft, Normal bowel sounds, No organomegaly Ext:No significant edema Abnormal Lab Results 01/11/17 01/11/17 05:20 05:20 WBC 3.9 L RBC 3.41 L Hgb 10.0 L Hct 30.7 L PTT (Actin FS) 65.7 H Active Medications Generic Name Dose Route Start Last Admin Trade Name Freq PRN Reason Stop Dose Admin Heparin Sodium (Porcine) 5,000 unit 01/06/17 10:56 01/06/17 23:01 Heparin - IVPUSH 5,000 unit PRN PRN Administration Heparin Sodium (Porcine) 1,000 unit 01/06/17 10:57 01/06/17 17:15 Heparin - IVPUSH 1,000 unit PRN PRN Administration Heparin Sodium (Porcine) 25, 500 mls @ 19 mls/hr 01/06/17 12:15 01/11/17 12:15 000 unit/ Sodium Chloride IV 17 mls/hr TITR RICK Administration Protocol 950 UNIT/HR Insulin Aspart 1 vial 01/06/17 07:00 01/11/17 12:13 Novolog Vial Sliding Scale - SQ 2 units ACHS RICK Administration Protocol Losartan Potassium 25 mg 01/06/17 10:00 01/11/17 10:11 Cozaar - PO 25 mg DAILY RICK Administration Metformin HCl 1,000 mg 01/06/17 07:00 01/11/17 06:45 Glucophage - PO 1,000 mg DAILY@0700 RICK Administration Metoprolol Succinate 25 mg 01/05/17 14:45 01/11/17 10:12 Toprol Xl - PO 25 mg DAILY RICK Administration Ondansetron HCl 4 mg 01/06/17 08:35 01/06/17 10:11 Zofran Injection IVPB 4 mg Q6H PRN Administration NAUSEA Pantoprazole Sodium 40 mg 01/09/17 10:00 01/11/17 10:12 Protonix - PO 40 mg DAILY RICK Administration Sitagliptin Phosphate 50 mg 01/06/17 07:00 01/11/17 06:47 Januvia - PO 50 mg DAILY@0700 RICK Administration 87 y/o with metastatic endometrial cancer, uterine bleeding, PE nl renal/liver function switched to lovenox will need family meeting to discuss prognosis, placement
--- NOTE | 2017-01-12 23:26 | PN ---
Progress Note, Physician - Current Medication List Current Medications: Active Medications Docusate Sodium (Colace -) 300 mg PO HS [facility] Last Admin: 01/12/17 21:11 Dose: 300 mg Enoxaparin Sodium (Lovenox -) 70 mg SQ Q12H [facility] Last Admin: 01/12/17 15:03 Dose: 70 mg Hydrochlorothiazide (Hctz -) 25 mg PO DAILY [facility] Last Admin: 01/12/17 09:18 Dose: 25 mg Insulin Aspart (Novolog Vial Sliding Scale -) 1 vial SQ ACHS [facility] PRN Reason: Protocol Last Admin: 01/12/17 21:12 Dose: 2 units Losartan Potassium (Cozaar -) 25 mg PO DAILY [facility] Last Admin: 01/12/17 09:13 Dose: 25 mg Metformin HCl (Glucophage -) 1,000 mg PO DAILY@0700 [facility] Last Admin: 01/12/17 06:43 Dose: 1,000 mg Metoprolol Succinate (Toprol Xl -) 25 mg PO BID [facility] Last Admin: 01/12/17 21:12 Dose: 25 mg Ondansetron HCl (Zofran Injection) 4 mg IVPB Q6H PRN PRN Reason: NAUSEA Last Admin: 01/06/17 10:11 Dose: 4 mg Pantoprazole Sodium (Protonix -) 40 mg PO DAILY [facility] Last Admin: 01/12/17 09:17 Dose: 40 mg Sitagliptin Phosphate (Januvia -) 50 mg PO DAILY@0700 [facility] Last Admin: 01/12/17 06:43 Dose: 50 mg - Objective Vital Signs: Vital Signs Temperature 98.2 F 01/12/17 14:44 Pulse Rate 80 01/12/17 06:30 Respiratory Rate 18 01/12/17 21:00 Blood Pressure 151/74 01/12/17 06:30 O2 Sat by Pulse Oximetry (%) 100 01/12/17 21:00 Labs: CBC, BMP 01/11/17 05:20 01/09/17 05:15 Problem List - Problems (1) Pulmonary embolism Code(s): I26.99 - OTHER PULMONARY EMBOLISM WITHOUT ACUTE COR PULMONALE Qualifiers: Pulmonary embolism type: other Chronicity: acute Acute cor pulmonale presence: without acute cor pulmonale Qualified Code(s): I26.99 - Other pulmonary embolism without acute cor pulmonale (2) Afib Code(s): I48.91 - UNSPECIFIED ATRIAL FIBRILLATION (3) Diabetes Code(s): E11.9 - TYPE 2 DIABETES MELLITUS WITHOUT COMPLICATIONS (4) Hypertension Code(s): I10 - ESSENTIAL (PRIMARY) HYPERTENSION (5) Uterine cancer Code(s): C55 - MALIGNANT NEOPLASM OF UTERUS, PART UNSPECIFIED
[2017-01-13] MEDS: ENOXAPARIN NA (PORCINE) 60 MG/0.6 ML DISP.SYRIN SQ SCH ×2 (02:34→14:15)
[2017-01-13] MEDS: sitaGLIPtin PHOSPHATE 50 MG TABLET PO SCH (06:12)
[2017-01-13] MEDS: INSULIN SLIDING SCALE (NOVOLOG) 1 VIAL SQ SCH ×4 (06:12→21:49)
[2017-01-13] MEDS: metFORMIN HCL 500 MG TABLET (FP) PO SCH (06:12)
[2017-01-13] MEDS ORDERED: PT OWN MED DRAWER 7, Y5N ONE (08:07)
[2017-01-13] MEDS: PANTOPRAZOLE 40 MG TABLET (FP) PO SCH (09:32)
[2017-01-13] MEDS: LOSARTAN POTASSIUM 50 MG TABLET (FP) PO SCH (09:32)
[2017-01-13] MEDS: METOPROLOL SUCCINATE 25 MG TAB.SR.24H (FP) PO SCH ×2 (09:32→21:48)
[2017-01-13] MEDS: HYDROCHLOROTHIAZIDE 25 MG TABLET (FP) PO SCH (09:32)
--- NOTE | 2017-01-13 10:20 | PN ---
Progress Note (short form) - Note Progress Note: No CP or SOB. No occult bleeding noted. Switched to Lovenox yesterday. Intake & Output 01/10/17 01/11/17 01/12/17 01/13/17 23:59 23:59 23:59 23:59 Intake Total 891 324 443 Balance 891 324 443 Weight 152 lb 4 oz 150 lb 3.2 oz Last Vital Signs Temp Pulse Resp BP Pulse Ox 98.0 F 79 20 140/61 100 01/13/17 06:15 01/13/17 06:15 01/13/17 08:25 01/13/17 06:15 01/12/17 21:00 Active Medications Docusate Sodium (Colace -) 300 mg PO HS [facility] Last Admin: 01/12/17 21:11 Dose: 300 mg Enoxaparin Sodium (Lovenox -) 70 mg SQ Q12H [facility] Last Admin: 01/13/17 02:34 Dose: 70 mg Hydrochlorothiazide (Hctz -) 25 mg PO DAILY [facility] Last Admin: 01/13/17 09:32 Dose: 25 mg Insulin Aspart (Novolog Vial Sliding Scale -) 1 vial SQ ACHS [facility] PRN Reason: Protocol Last Admin: 01/13/17 06:12 Dose: 2 units Losartan Potassium (Cozaar -) 25 mg PO DAILY [facility] Last Admin: 01/13/17 09:32 Dose: 25 mg Metformin HCl (Glucophage -) 1,000 mg PO DAILY@0700 [facility] Last Admin: 01/13/17 06:12 Dose: 1,000 mg Metoprolol Succinate (Toprol Xl -) 25 mg PO BID [facility] Last Admin: 01/13/17 09:32 Dose: 25 mg Ondansetron HCl (Zofran Injection) 4 mg IVPB Q6H PRN PRN Reason: NAUSEA Last Admin: 01/06/17 10:11 Dose: 4 mg Pantoprazole Sodium (Protonix -) 40 mg PO DAILY [facility] Last Admin: 01/13/17 09:32 Dose: 40 mg Sitagliptin Phosphate (Januvia -) 50 mg PO DAILY@0700 [facility] Last Admin: 01/13/17 06:12 Dose: 50 mg Constitutional: Yes: NAD Eyes: Yes: WNL HENT: Yes: WNL Neck: Yes: WNL Cardiovascular: Yes: Pulse Irregular, S1, S2 Respiratory: Yes: few basilar rhonchi Gastrointestinal: Yes: Normal Bowel Sounds, Soft Extremities: Yes: WNL Edema: No Labs: Laboratory Results - last 24 hr 01/12/17 01/12/17 01/12/17 11:30 16:35 20:17 POC Glucometer [id number] [id number] 180.95389 01/13/17 05:24 POC Glucometer 159.30116 Assessment/Plan Problem List - Problems (1) Pulmonary embolism Code(s): I26.99 - OTHER PULMONARY EMBOLISM WITHOUT ACUTE COR PULMONALE Qualifiers: Pulmonary embolism type: other Chronicity: acute Acute cor pulmonale presence: without acute cor pulmonale Qualified Code(s): I26.99 - Other pulmonary embolism without acute cor pulmonale (2) Abnormal vaginal bleeding Code(s): N93.9 - ABNORMAL UTERINE AND VAGINAL BLEEDING, UNSPECIFIED (3) Afib Code(s): I48.91 - UNSPECIFIED ATRIAL FIBRILLATION (4) CVA (cerebral infarction) Code(s): I63.9 - CEREBRAL INFARCTION, UNSPECIFIED (5) Chest pain Code(s): R07.9 - CHEST PAIN, UNSPECIFIED Qualifiers: Chest pain type: unspecified Qualified Code(s): R07.9 - Chest pain, unspecified (6) Diabetes Code(s): E11.9 - TYPE 2 DIABETES MELLITUS WITHOUT COMPLICATIONS (7) Hypertension Code(s): I10 - ESSENTIAL (PRIMARY) HYPERTENSION (8) Metastasis Code(s): C79.9 - SECONDARY MALIGNANT NEOPLASM OF UNSPECIFIED SITE Qualifiers: Area of secondary neoplastic involvement: respiratory structure Respiratory structure secondary neoplasm location: metastatic to lung Laterality: unspecified laterality Qualified Code(s): C78.00 - Secondary malignant neoplasm of unspecified lung (9) Shortness of breath Code(s): R06.02 - SHORTNESS OF BREATH (10) Uterine cancer Code(s): C55 - MALIGNANT NEOPLASM OF UTERUS, PART UNSPECIFIED (11) GI (gastrointestinal bleed) Code(s): K92.2 - GASTROINTESTINAL HEMORRHAGE, UNSPECIFIED Assessment/Plan Lovenox BID O2 as needed D/C Planning Dr Alex Problem List - Problems (1) Pulmonary embolism Code(s): I26.99 - OTHER PULMONARY EMBOLISM WITHOUT ACUTE COR PULMONALE Qualifiers: Pulmonary embolism type: other Chronicity: acute Acute cor pulmonale presence: without acute cor pulmonale Qualified Code(s): I26.99 - Other pulmonary embolism without acute cor pulmonale (2) Abnormal vaginal bleeding Code(s): N93.9 - ABNORMAL UTERINE AND VAGINAL BLEEDING, UNSPECIFIED (3) Afib Code(s): I48.91 - UNSPECIFIED ATRIAL FIBRILLATION (4) CVA (cerebral infarction) Code(s): I63.9 - CEREBRAL INFARCTION, UNSPECIFIED (5) Chest pain Code(s): R07.9 - CHEST PAIN, UNSPECIFIED Qualifiers: Chest pain type: unspecified Qualified Code(s): R07.9 - Chest pain, unspecified (6) Diabetes Code(s): E11.9 - TYPE 2 DIABETES MELLITUS WITHOUT COMPLICATIONS (7) Hypertension Code(s): I10 - ESSENTIAL (PRIMARY) HYPERTENSION (8) Metastasis Code(s): C79.9 - SECONDARY MALIGNANT NEOPLASM OF UNSPECIFIED SITE Qualifiers: Area of secondary neoplastic involvement: respiratory structure Respiratory structure secondary neoplasm location: metastatic to lung Laterality: unspecified laterality Qualified Code(s): C78.00 - Secondary malignant neoplasm of unspecified lung (9) Shortness of breath Code(s): R06.02 - SHORTNESS OF BREATH (10) Uterine cancer Code(s): C55 - MALIGNANT NEOPLASM OF UTERUS, PART UNSPECIFIED
--- NOTE | 2017-01-13 13:31 | PN ---
Progress Note, Physician Chief Complaint: Ptr A&Ox3; no chest pain. Easily fatigued. History of Present Illness: This is an elderly 86-year-old female who has history significant for lung cancer. Patient comes in complaining of the pain in her right lower chest area. Patient said she does not have pain except for when she coughs or takes a deep breath. Patient said this is new times the last couple weeks. Patient has not taken anything for the pain. Patient denies history of similar pain in the past. Patient said that she is been a little more short of breath than usual. Patient denies any fevers or chills. Patient said when she coughs she does not cough up anything. PAST MEDICAL HISTORY: Hypertension, high cholesterol PAST SURGICAL HISTORY: no significant history FAMILY HISTORY: no pertinent history SOCIAL HISTORY: Pt lives with family and is retired - Current Medication List Current Medications: Active Medications Docusate Sodium (Colace -) 300 mg PO HS [facility] Last Admin: 01/12/17 21:11 Dose: 300 mg Enoxaparin Sodium (Lovenox -) 70 mg SQ Q12H [facility] Last Admin: 01/13/17 02:34 Dose: 70 mg Hydrochlorothiazide (Hctz -) 25 mg PO DAILY [facility] Last Admin: 01/13/17 09:32 Dose: 25 mg Insulin Aspart (Novolog Vial Sliding Scale -) 1 vial SQ ACHS [facility] PRN Reason: Protocol Last Admin: 01/13/17 12:14 Dose: 2 units Losartan Potassium (Cozaar -) 25 mg PO DAILY [facility] Last Admin: 01/13/17 09:32 Dose: 25 mg Metformin HCl (Glucophage -) 1,000 mg PO DAILY@0700 [facility] Last Admin: 01/13/17 06:12 Dose: 1,000 mg Metoprolol Succinate (Toprol Xl -) 25 mg PO BID [facility] Last Admin: 01/13/17 09:32 Dose: 25 mg Ondansetron HCl (Zofran Injection) 4 mg IVPB Q6H PRN PRN Reason: NAUSEA Last Admin: 01/06/17 10:11 Dose: 4 mg Pantoprazole Sodium (Protonix -) 40 mg PO DAILY [facility] Last Admin: 01/13/17 09:32 Dose: 40 mg Sitagliptin Phosphate (Januvia -) 50 mg PO DAILY@0700 [facility] Last Admin: 06/24/17 06:12 Dose: 50 mg - Objective Vital Signs: Vital Signs Temperature 98.0 F 01/13/17 06:15 Pulse Rate 79 01/13/17 06:15 Respiratory Rate 20 01/13/17 08:25 Blood Pressure 140/61 01/13/17 06:15 O2 Sat by Pulse Oximetry (%) 100 01/12/17 21:00 Constitutional: Yes: Calm Eyes: Yes: WNL HENT: Yes: WNL Neck: Yes: WNL Cardiovascular: Yes: Regular Rate and Rhythm Respiratory: Yes: Diminished Gastrointestinal: Yes: Soft ...Rectal Exam: Yes: Deferred Genitourinary: No: Anuria Breast(s): Yes: WNL Musculoskeletal: Yes: Muscle Weakness Extremities: Yes: Cool Edema: No Peripheral Pulses WNL: Yes Integumentary: Yes: Other Neurological: Yes: Alert, Oriented, Weakness Labs: CBC, BMP 01/11/17 05:20 01/09/17 05:15 - ....Imaging Other: Image Reviewed (telemetry: NSR; occarioaal ventricular paced rhythm) Problem List - Problems (1) GI (gastrointestinal bleed) Code(s): K92.2 - GASTROINTESTINAL HEMORRHAGE, UNSPECIFIED (2) Pulmonary embolism Assessment/Plan: on lovenox 70 mg bid. Code(s): I26.99 - OTHER PULMONARY EMBOLISM WITHOUT ACUTE COR PULMONALE Qualifiers: Pulmonary embolism type: other Chronicity: acute Acute cor pulmonale presence: without acute cor pulmonale Qualified Code(s): I26.99 - Other pulmonary embolism without acute cor pulmonale (3) Uterine cancer Code(s): C55 - MALIGNANT NEOPLASM OF UTERUS, PART UNSPECIFIED (4) Afib Assessment/Plan: On metoprolol ER. on lovenox bid. Code(s): I48.91 - UNSPECIFIED ATRIAL FIBRILLATION (5) Diabetes Code(s): E11.9 - TYPE 2 DIABETES MELLITUS WITHOUT COMPLICATIONS (6) Hemoptysis Code(s): R04.2 - HEMOPTYSIS (7) Metastasis Code(s): C79.9 - SECONDARY MALIGNANT NEOPLASM OF UNSPECIFIED SITE Qualifiers: Area of secondary neoplastic involvement: respiratory structure Respiratory structure secondary neoplasm location: metastatic to lung Laterality: unspecified laterality Qualified Code(s): C78.00 - Secondary malignant neoplasm of unspecified lung (8) Pulmonary nodule, left Code(s): R91.1 - SOLITARY PULMONARY NODULE (9) Shortness of breath Code(s): R06.02 - SHORTNESS OF BREATH (10) History of permanent cardiac pacemaker placement Code(s): Z95.0 - PRESENCE OF CARDIAC PACEMAKER
[2017-01-13] MEDS: DOCUSATE SODIUM 100 MG CAPSULE (FP) PO SCH (21:48)
--- NOTE | 2017-01-14 01:42 | PN ---
Progress Note, Physician - Current Medication List Current Medications: Active Medications Docusate Sodium (Colace -) 300 mg PO HS [facility] Last Admin: 01/13/17 21:48 Dose: 300 mg Enoxaparin Sodium (Lovenox -) 70 mg SQ Q12H [facility] Last Admin: 01/13/17 14:15 Dose: 70 mg Hydrochlorothiazide (Hctz -) 25 mg PO DAILY [facility] Last Admin: 01/13/17 09:32 Dose: 25 mg Insulin Aspart (Novolog Vial Sliding Scale -) 1 vial SQ ACHS [facility] PRN Reason: Protocol Last Admin: 01/13/17 21:49 Dose: 4 units Losartan Potassium (Cozaar -) 25 mg PO DAILY [facility] Last Admin: 01/13/17 09:32 Dose: 25 mg Metformin HCl (Glucophage -) 1,000 mg PO DAILY@0700 [facility] Last Admin: 01/13/17 06:12 Dose: 1,000 mg Metoprolol Succinate (Toprol Xl -) 25 mg PO BID [facility] Last Admin: 01/13/17 21:48 Dose: 25 mg Ondansetron HCl (Zofran Injection) 4 mg IVPB Q6H PRN PRN Reason: NAUSEA Last Admin: 01/06/17 10:11 Dose: 4 mg Pantoprazole Sodium (Protonix -) 40 mg PO DAILY [facility] Last Admin: 01/13/17 09:32 Dose: 40 mg Sitagliptin Phosphate (Januvia -) 50 mg PO DAILY@0700 [facility] Last Admin: 01/13/17 06:12 Dose: 50 mg - Objective Vital Signs: Vital Signs Temperature 97.6 F 01/13/17 14:39 Pulse Rate 85 01/13/17 14:39 Respiratory Rate 20 01/13/17 14:39 Blood Pressure 145/82 01/13/17 14:39 O2 Sat by Pulse Oximetry (%) 100 01/13/17 20:45 Labs: CBC, BMP 01/11/17 05:20 01/09/17 05:15 Problem List - Problems (1) Pulmonary embolism Code(s): I26.99 - OTHER PULMONARY EMBOLISM WITHOUT ACUTE COR PULMONALE Qualifiers: Pulmonary embolism type: other Chronicity: acute Acute cor pulmonale presence: without acute cor pulmonale Qualified Code(s): I26.99 - Other pulmonary embolism without acute cor pulmonale (2) Afib Code(s): I48.91 - UNSPECIFIED ATRIAL FIBRILLATION (3) Diabetes Code(s): E11.9 - TYPE 2 DIABETES MELLITUS WITHOUT COMPLICATIONS (4) Hypertension Code(s): I10 - ESSENTIAL (PRIMARY) HYPERTENSION (5) Uterine cancer Code(s): C55 - MALIGNANT NEOPLASM OF UTERUS, PART UNSPECIFIED
[2017-01-14] MEDS: ENOXAPARIN NA (PORCINE) 60 MG/0.6 ML DISP.SYRIN SQ SCH ×2 (03:00→14:28)
[2017-01-14] MEDS ORDERED: INSULIN DETEMIR 100 UNITS/ML MDV SQ ONE (06:01)
[2017-01-14] MEDS: metFORMIN HCL 500 MG TABLET (FP) PO SCH (06:15)
[2017-01-14] MEDS: sitaGLIPtin PHOSPHATE 50 MG TABLET PO SCH (06:15)
[2017-01-14] MEDS: INSULIN SLIDING SCALE (NOVOLOG) 1 VIAL SQ SCH ×4 (06:35→21:47)
[2017-01-14] MEDS ORDERED: PT OWN MED DRAWER 7, Y5N ONE ×2 (09:28→17:20)
[2017-01-14] MEDS: LOSARTAN POTASSIUM 50 MG TABLET (FP) PO SCH (09:40)
[2017-01-14] MEDS: PANTOPRAZOLE 40 MG TABLET (FP) PO SCH (09:41)
[2017-01-14] MEDS: METOPROLOL SUCCINATE 25 MG TAB.SR.24H (FP) PO SCH ×2 (09:41→21:47)
[2017-01-14] MEDS: HYDROCHLOROTHIAZIDE 25 MG TABLET (FP) PO SCH (09:41)
--- NOTE | 2017-01-14 12:16 | PN ---
Progress Note (short form) - Note Progress Note: No CP or SOB. No occult bleeding noted. No acute issues noted she was changed to Lovenox. Intake & Output 01/11/17 01/12/17 01/13/17 01/14/17 23:59 23:59 23:59 23:59 Intake Total 324 443 Balance 324 443 Weight 152 lb 4 oz 150 lb 3.2 oz 152 lb 8.958 oz Last Vital Signs Temp Pulse Resp BP Pulse Ox 98.1 F 70 18 141/68 100 01/14/17 10:00 01/14/17 10:00 01/14/17 10:00 01/14/17 10:00 01/14/17 10:00 Active Medications Docusate Sodium (Colace -) 300 mg PO HS [facility] Last Admin: 01/13/17 21:48 Dose: 300 mg Enoxaparin Sodium (Lovenox -) 70 mg SQ Q12H [facility] Last Admin: 01/14/17 03:00 Dose: 70 mg Hydrochlorothiazide (Hctz -) 25 mg PO DAILY [facility] Last Admin: 01/14/17 09:41 Dose: 25 mg Insulin Aspart (Novolog Vial Sliding Scale -) 1 vial SQ ACHS [facility] PRN Reason: Protocol Last Admin: 01/14/17 06:35 Dose: 2 units Losartan Potassium (Cozaar -) 25 mg PO DAILY [facility] Last Admin: 01/14/17 09:40 Dose: 25 mg Metformin HCl (Glucophage -) 1,000 mg PO DAILY@0700 [facility] Last Admin: 01/14/17 06:15 Dose: 1,000 mg Metoprolol Succinate (Toprol Xl -) 25 mg PO BID [facility] Last Admin: 01/14/17 09:41 Dose: 25 mg Ondansetron HCl (Zofran Injection) 4 mg IVPB Q6H PRN PRN Reason: NAUSEA Last Admin: 01/06/17 10:11 Dose: 4 mg Pantoprazole Sodium (Protonix -) 40 mg PO DAILY [facility] Last Admin: 01/14/17 09:41 Dose: 40 mg Sitagliptin Phosphate (Januvia -) 50 mg PO DAILY@0700 [facility] Last Admin: 01/14/17 06:15 Dose: 50 mg Constitutional: Yes: NAD Eyes: Yes: WNL HENT: Yes: WNL Neck: Yes: WNL Cardiovascular: Yes: Pulse Irregular, S1, S2 Respiratory: Yes: few basilar rhonchi Gastrointestinal: Yes: Normal Bowel Sounds, Soft Extremities: Yes: WNL Edema: No Labs: Laboratory Results - last 24 hr 01/13/17 01/13/17 01/14/17 17:10 21:36 06:34 POC Glucometer [id number] 208.60352 154.35728 Assessment/Plan Problem List - Problems (1) Pulmonary embolism Code(s): I26.99 - OTHER PULMONARY EMBOLISM WITHOUT ACUTE COR PULMONALE Qualifiers: Pulmonary embolism type: other Chronicity: acute Acute cor pulmonale presence: without acute cor pulmonale Qualified Code(s): I26.99 - Other pulmonary embolism without acute cor pulmonale (2) Abnormal vaginal bleeding Code(s): N93.9 - ABNORMAL UTERINE AND VAGINAL BLEEDING, UNSPECIFIED (3) Afib Code(s): I48.91 - UNSPECIFIED ATRIAL FIBRILLATION (4) CVA (cerebral infarction) Code(s): I63.9 - CEREBRAL INFARCTION, UNSPECIFIED (5) Chest pain Code(s): R07.9 - CHEST PAIN, UNSPECIFIED Qualifiers: Chest pain type: unspecified Qualified Code(s): R07.9 - Chest pain, unspecified (6) Diabetes Code(s): E11.9 - TYPE 2 DIABETES MELLITUS WITHOUT COMPLICATIONS (7) Hypertension Code(s): I10 - ESSENTIAL (PRIMARY) HYPERTENSION (8) Metastasis Code(s): C79.9 - SECONDARY MALIGNANT NEOPLASM OF UNSPECIFIED SITE Qualifiers: Area of secondary neoplastic involvement: respiratory structure Respiratory structure secondary neoplasm location: metastatic to lung Laterality: unspecified laterality Qualified Code(s): C78.00 - Secondary malignant neoplasm of unspecified lung (9) Shortness of breath Code(s): R06.02 - SHORTNESS OF BREATH (10) Uterine cancer Code(s): C55 - MALIGNANT NEOPLASM OF UTERUS, PART UNSPECIFIED (11) GI (gastrointestinal bleed) Code(s): K92.2 - GASTROINTESTINAL HEMORRHAGE, UNSPECIFIED Assessment/Plan Lovenox BID O2 as needed D/C Planning Dr Alex Problem List - Problems (1) Pulmonary embolism Code(s): I26.99 - OTHER PULMONARY EMBOLISM WITHOUT ACUTE COR PULMONALE Qualifiers: Pulmonary embolism type: other Chronicity: acute Acute cor pulmonale presence: without acute cor pulmonale Qualified Code(s): I26.99 - Other pulmonary embolism without acute cor pulmonale (2) Abnormal vaginal bleeding Code(s): N93.9 - ABNORMAL UTERINE AND VAGINAL BLEEDING, UNSPECIFIED (3) Afib Code(s): I48.91 - UNSPECIFIED ATRIAL FIBRILLATION (4) CVA (cerebral infarction) Code(s): I63.9 - CEREBRAL INFARCTION, UNSPECIFIED (5) Chest pain Code(s): R07.9 - CHEST PAIN, UNSPECIFIED Qualifiers: Chest pain type: unspecified Qualified Code(s): R07.9 - Chest pain, unspecified (6) Diabetes Code(s): E11.9 - TYPE 2 DIABETES MELLITUS WITHOUT COMPLICATIONS (7) Hypertension Code(s): I10 - ESSENTIAL (PRIMARY) HYPERTENSION (8) Metastasis Code(s): C79.9 - SECONDARY MALIGNANT NEOPLASM OF UNSPECIFIED SITE Qualifiers: Area of secondary neoplastic involvement: respiratory structure Respiratory structure secondary neoplasm location: metastatic to lung Laterality: unspecified laterality Qualified Code(s): C78.00 - Secondary malignant neoplasm of unspecified lung (9) Shortness of breath Code(s): R06.02 - SHORTNESS OF BREATH (10) Uterine cancer Code(s): C55 - MALIGNANT NEOPLASM OF UTERUS, PART UNSPECIFIED
[2017-01-14] MEDS ORDERED: LOSARTAN POTASSIUM 25 MG TABLET PO ONE (12:32)
--- NOTE | 2017-01-14 12:36 | PN ---
Progress Note, Physician Chief Complaint: Ptr A&Ox3; no chest pain. Easily fatigued, and dyspnea on mild exertion. Poor appetite. History of Present Illness: This is an elderly 86-year-old female who has history significant for lung cancer. Patient comes in complaining of the pain in her right lower chest area. Patient said she does not have pain except for when she coughs or takes a deep breath. Patient said this is new times the last couple weeks. Patient has not taken anything for the pain. Patient denies history of similar pain in the past. Patient said that she is been a little more short of breath than usual. Patient denies any fevers or chills. Patient said when she coughs she does not cough up anything. PAST MEDICAL HISTORY: Hypertension, high cholesterol PAST SURGICAL HISTORY: no significant history FAMILY HISTORY: no pertinent history SOCIAL HISTORY: Pt lives with family and is retired - Current Medication List Current Medications: Active Medications Docusate Sodium (Colace -) 300 mg PO HS [facility] Last Admin: 01/13/17 21:48 Dose: 300 mg Enoxaparin Sodium (Lovenox -) 70 mg SQ Q12H [facility] Last Admin: 01/14/17 03:00 Dose: 70 mg Hydrochlorothiazide (Hctz -) 25 mg PO DAILY [facility] Last Admin: 01/14/17 09:41 Dose: 25 mg Insulin Aspart (Novolog Vial Sliding Scale -) 1 vial SQ ACHS [facility] PRN Reason: Protocol Last Admin: 01/14/17 06:35 Dose: 2 units Losartan Potassium (Cozaar -) 25 mg PO DAILY [facility] Last Admin: 01/14/17 09:40 Dose: 25 mg Metformin HCl (Glucophage -) 1,000 mg PO DAILY@0700 [facility] Last Admin: 01/14/17 06:15 Dose: 1,000 mg Metoprolol Succinate (Toprol Xl -) 25 mg PO BID [facility] Last Admin: 01/14/17 09:41 Dose: 25 mg Ondansetron HCl (Zofran Injection) 4 mg IVPB Q6H PRN PRN Reason: NAUSEA Last Admin: 01/06/17 10:11 Dose: 4 mg Pantoprazole Sodium (Protonix -) 40 mg PO DAILY [facility] Last Admin: 01/14/17 09:41 Dose: 40 mg Sitagliptin Phosphate (Januvia -) 50 mg PO DAILY@0700 [facility] Last Admin: 01/14/17 06:15 Dose: 50 mg - Objective Vital Signs: Vital Signs Temperature 98.1 F 01/14/17 10:00 Pulse Rate 70 01/14/17 10:00 Respiratory Rate 18 01/14/17 10:00 Blood Pressure 141/68 01/14/17 10:00 O2 Sat by Pulse Oximetry (%) 100 01/14/17 10:00 Constitutional: Yes: Calm Eyes: Yes: WNL HENT: Yes: WNL Neck: Yes: WNL Cardiovascular: Yes: Pulse Irregular (occasional ventricular pacing) Respiratory: Yes: Diminished Gastrointestinal: Yes: Soft ...Rectal Exam: Yes: Deferred Genitourinary: No: Anuria Musculoskeletal: Yes: Muscle Weakness Extremities: Yes: Cool Edema: No Peripheral Pulses WNL: Yes Integumentary: Yes: Other Neurological: Yes: Alert, Oriented, Weakness Psychiatric: Yes: WNL Labs: CBC, BMP 01/11/17 05:20 01/09/17 05:15 Problem List - Problems (1) GI (gastrointestinal bleed) Code(s): K92.2 - GASTROINTESTINAL HEMORRHAGE, UNSPECIFIED (2) Pulmonary embolism Assessment/Plan: on lovenox 70 mg bid. s/p IVC filter. Code(s): I26.99 - OTHER PULMONARY EMBOLISM WITHOUT ACUTE COR PULMONALE Qualifiers: Pulmonary embolism type: other Chronicity: acute Acute cor pulmonale presence: without acute cor pulmonale Qualified Code(s): I26.99 - Other pulmonary embolism without acute cor pulmonale (3) Uterine cancer Code(s): C55 - MALIGNANT NEOPLASM OF UTERUS, PART UNSPECIFIED (4) Afib Assessment/Plan: On metoprolol ER. on lovenox bid. Code(s): I48.91 - UNSPECIFIED ATRIAL FIBRILLATION (5) Diabetes Code(s): E11.9 - TYPE 2 DIABETES MELLITUS WITHOUT COMPLICATIONS (6) Hemoptysis Code(s): R04.2 - HEMOPTYSIS (7) Metastasis Code(s): C79.9 - SECONDARY MALIGNANT NEOPLASM OF UNSPECIFIED SITE Qualifiers: Area of secondary neoplastic involvement: respiratory structure Respiratory structure secondary neoplasm location: metastatic to lung Laterality: unspecified laterality Qualified Code(s): C78.00 - Secondary malignant neoplasm of unspecified lung (8) Pulmonary nodule, left Code(s): R91.1 - SOLITARY PULMONARY NODULE (9) Shortness of breath Code(s): R06.02 - SHORTNESS OF BREATH (10) History of permanent cardiac pacemaker placement Code(s): Z95.0 - PRESENCE OF CARDIAC PACEMAKER (11) Hypertension Assessment/Plan: increased losartan to 50 mg daily. Also on metoprolol and HCTZ. Code(s): I10 - ESSENTIAL (PRIMARY) HYPERTENSION
[2017-01-14] MEDS: DOCUSATE SODIUM 100 MG CAPSULE (FP) PO SCH (21:47)
--- NOTE | 2017-01-14 23:47 | PN ---
Progress Note, Physician - Current Medication List Current Medications: Active Medications Docusate Sodium (Colace -) 300 mg PO HS [facility] Last Admin: 01/14/17 21:47 Dose: 300 mg Enoxaparin Sodium (Lovenox -) 70 mg SQ Q12H [facility] Last Admin: 01/14/17 14:28 Dose: 70 mg Hydrochlorothiazide (Hctz -) 25 mg PO DAILY [facility] Last Admin: 01/14/17 09:41 Dose: 25 mg Insulin Aspart (Novolog Vial Sliding Scale -) 1 vial SQ ACHS [facility] PRN Reason: Protocol Last Admin: 01/14/17 21:47 Dose: 2 units Losartan Potassium (Cozaar -) 50 mg PO DAILY [facility] Metformin HCl (Glucophage -) 1,000 mg PO DAILY@0700 [facility] Last Admin: 01/14/17 06:15 Dose: 1,000 mg Metoprolol Succinate (Toprol Xl -) 25 mg PO BID [facility] Last Admin: 01/14/17 21:47 Dose: 25 mg Ondansetron HCl (Zofran Injection) 4 mg IVPB Q6H PRN PRN Reason: NAUSEA Last Admin: 01/06/17 10:11 Dose: 4 mg Pantoprazole Sodium (Protonix -) 40 mg PO DAILY [facility] Last Admin: 01/14/17 09:41 Dose: 40 mg Sitagliptin Phosphate (Januvia -) 50 mg PO DAILY@0700 [facility] Last Admin: 01/14/17 06:15 Dose: 50 mg - Objective Vital Signs: Vital Signs Temperature 98 F 01/14/17 22:00 Pulse Rate 76 01/14/17 22:00 Respiratory Rate 16 01/14/17 22:00 Blood Pressure 124/68 01/14/17 22:00 O2 Sat by Pulse Oximetry (%) 100 01/14/17 20:34 Labs: CBC, BMP 01/11/17 05:20 01/09/17 05:15 Problem List - Problems (1) Pulmonary embolism Code(s): I26.99 - OTHER PULMONARY EMBOLISM WITHOUT ACUTE COR PULMONALE Qualifiers: Pulmonary embolism type: other Chronicity: acute Acute cor pulmonale presence: without acute cor pulmonale Qualified Code(s): I26.99 - Other pulmonary embolism without acute cor pulmonale (2) Afib Code(s): I48.91 - UNSPECIFIED ATRIAL FIBRILLATION (3) Diabetes Code(s): E11.9 - TYPE 2 DIABETES MELLITUS WITHOUT COMPLICATIONS (4) Hypertension Code(s): I10 - ESSENTIAL (PRIMARY) HYPERTENSION (5) Uterine cancer Code(s): C55 - MALIGNANT NEOPLASM OF UTERUS, PART UNSPECIFIED
[2017-01-15] MEDS: ENOXAPARIN NA (PORCINE) 60 MG/0.6 ML DISP.SYRIN SQ SCH ×2 (02:35→14:39)
[2017-01-15] MEDS: metFORMIN HCL 500 MG TABLET (FP) PO SCH (06:01)
[2017-01-15] MEDS: INSULIN SLIDING SCALE (NOVOLOG) 1 VIAL SQ SCH ×4 (06:01→22:12)
[2017-01-15] MEDS: sitaGLIPtin PHOSPHATE 50 MG TABLET PO SCH (06:01)
[2017-01-15] MEDS: LOSARTAN POTASSIUM 50 MG TABLET (FP) PO SCH (08:59)
[2017-01-15] MEDS: METOPROLOL SUCCINATE 25 MG TAB.SR.24H (FP) PO SCH ×2 (08:59→22:12)
[2017-01-15] MEDS: HYDROCHLOROTHIAZIDE 25 MG TABLET (FP) PO SCH (08:59)
[2017-01-15] MEDS: PANTOPRAZOLE 40 MG TABLET (FP) PO SCH (08:59)
--- NOTE | 2017-01-15 10:49 | PN ---
Progress Note, Physician History of Present Illness: pulmonary alert,feeling better,-resp distress,on Lovenox - Current Medication List Current Medications: Active Medications Docusate Sodium (Colace -) 300 mg PO HS [facility] Last Admin: 01/14/17 21:47 Dose: 300 mg Enoxaparin Sodium (Lovenox -) 70 mg SQ Q12H [facility] Last Admin: 01/15/17 02:35 Dose: 70 mg Hydrochlorothiazide (Hctz -) 25 mg PO DAILY [facility] Last Admin: 01/15/17 08:59 Dose: 25 mg Insulin Aspart (Novolog Vial Sliding Scale -) 1 vial SQ ACHS [facility] PRN Reason: Protocol Last Admin: 01/15/17 06:01 Dose: Not Given Losartan Potassium (Cozaar -) 50 mg PO DAILY [facility] Last Admin: 01/15/17 08:59 Dose: 50 mg Metformin HCl (Glucophage -) 1,000 mg PO DAILY@0700 [facility] Last Admin: 01/15/17 06:01 Dose: 1,000 mg Metoprolol Succinate (Toprol Xl -) 25 mg PO BID [facility] Last Admin: 01/15/17 08:59 Dose: 25 mg Ondansetron HCl (Zofran Injection) 4 mg IVPB Q6H PRN PRN Reason: NAUSEA Last Admin: 01/06/17 10:11 Dose: 4 mg Pantoprazole Sodium (Protonix -) 40 mg PO DAILY [facility] Last Admin: 01/15/17 08:59 Dose: 40 mg Sitagliptin Phosphate (Januvia -) 50 mg PO DAILY@0700 [facility] Last Admin: 01/15/17 06:01 Dose: 50 mg - Objective Vital Signs: Vital Signs Temperature 98.2 F 01/15/17 05:00 Pulse Rate 83 01/15/17 05:00 Respiratory Rate 20 01/15/17 05:00 Blood Pressure 139/77 01/15/17 05:00 O2 Sat by Pulse Oximetry (%) 100 01/14/17 20:34 Constitutional: Yes: Well Nourished, Calm Eyes: Yes: WNL HENT: Yes: WNL Neck: Yes: WNL Cardiovascular: Yes: Pulse Irregular, S1, S2 Respiratory: Yes: Diminished, Rhonchi (few rhonchi) Gastrointestinal: Yes: Normal Bowel Sounds, Soft Extremities: Yes: WNL Edema: No Labs: CBC, BMP Problem List - Problems (1) GI (gastrointestinal bleed) Code(s): K92.2 - GASTROINTESTINAL HEMORRHAGE, UNSPECIFIED Assessment/Plan Problem List - Problems (1) Pulmonary embolism Code(s): I26.99 - OTHER PULMONARY EMBOLISM WITHOUT ACUTE COR PULMONALE Qualifiers: Pulmonary embolism type: other Chronicity: acute Acute cor pulmonale presence: without acute cor pulmonale Qualified Code(s): I26.99 - Other pulmonary embolism without acute cor pulmonale (2) Abnormal vaginal bleeding Code(s): N93.9 - ABNORMAL UTERINE AND VAGINAL BLEEDING, UNSPECIFIED (3) Afib Code(s): I48.91 - UNSPECIFIED ATRIAL FIBRILLATION (4) CVA (cerebral infarction) Code(s): I63.9 - CEREBRAL INFARCTION, UNSPECIFIED (5) Chest pain Code(s): R07.9 - CHEST PAIN, UNSPECIFIED Qualifiers: Chest pain type: unspecified Qualified Code(s): R07.9 - Chest pain, unspecified (6) Diabetes Code(s): E11.9 - TYPE 2 DIABETES MELLITUS WITHOUT COMPLICATIONS (7) Hypertension Code(s): I10 - ESSENTIAL (PRIMARY) HYPERTENSION (8) Metastasis Code(s): C79.9 - SECONDARY MALIGNANT NEOPLASM OF UNSPECIFIED SITE Qualifiers: Area of secondary neoplastic involvement: respiratory structure Respiratory structure secondary neoplasm location: metastatic to lung Laterality: unspecified laterality Qualified Code(s): C78.00 - Secondary malignant neoplasm of unspecified lung (9) Shortness of breath Code(s): R06.02 - SHORTNESS OF BREATH (10) Uterine cancer Code(s): C55 - MALIGNANT NEOPLASM OF UTERUS, PART UNSPECIFIED Assessment/Plan lovenox O2 as needed Follow H&H Normal transfusion thresholds DR RUSSELL
--- NOTE | 2017-01-15 14:10 | PN ---
Progress Note, Physician History of Present Illness: seen and examined today in nad. c/o mild epigastric discomfort earlier this am. no overnight events. no new complaints. - Current Medication List Current Medications: Active Medications Docusate Sodium (Colace -) 300 mg PO HS [facility] Last Admin: 01/14/17 21:47 Dose: 300 mg Enoxaparin Sodium (Lovenox -) 70 mg SQ Q12H [facility] Last Admin: 01/15/17 02:35 Dose: 70 mg Hydrochlorothiazide (Hctz -) 25 mg PO DAILY [facility] Last Admin: 01/15/17 08:59 Dose: 25 mg Insulin Aspart (Novolog Vial Sliding Scale -) 1 vial SQ ACHS [facility] PRN Reason: Protocol Last Admin: 01/15/17 11:07 Dose: 2 units Losartan Potassium (Cozaar -) 50 mg PO DAILY [facility] Last Admin: 01/15/17 08:59 Dose: 50 mg Metformin HCl (Glucophage -) 1,000 mg PO DAILY@0700 [facility] Last Admin: 01/15/17 06:01 Dose: 1,000 mg Metoprolol Succinate (Toprol Xl -) 25 mg PO BID [facility] Last Admin: 01/15/17 08:59 Dose: 25 mg Ondansetron HCl (Zofran Injection) 4 mg IVPB Q6H PRN PRN Reason: NAUSEA Last Admin: 01/06/17 10:11 Dose: 4 mg Pantoprazole Sodium (Protonix -) 40 mg PO DAILY [facility] Last Admin: 01/15/17 08:59 Dose: 40 mg Sitagliptin Phosphate (Januvia -) 50 mg PO DAILY@0700 [facility] Last Admin: 01/15/17 06:01 Dose: 50 mg - Objective Vital Signs: Vital Signs Temperature 97.2 F L 01/15/17 09:00 Pulse Rate 80 01/15/17 11:55 Respiratory Rate 18 01/15/17 09:00 Blood Pressure 145/72 01/15/17 09:00 O2 Sat by Pulse Oximetry (%) 96 01/15/17 11:55 Constitutional: Yes: No Distress, Calm Eyes: Yes: Conjunctiva Clear, EOM Intact, PERRL HENT: Yes: Atraumatic, Normocephalic Neck: Yes: Supple, Trachea Midline Cardiovascular: Yes: Pulse Irregular, S1, S2. No: Bradycardia, Tachycardia, Bruit, JVD, Gallop, Murmur, Rub, S3, S4, Varicosities Respiratory: Yes: Regular, Diminished. No: Rales, Rhonchi, SOB, Wheezes Gastrointestinal: Yes: Normal Bowel Sounds, Soft. No: Distention, Tenderness Edema: No Peripheral Pulses WNL: Yes Neurological: Yes: Alert, Oriented Psychiatric: Yes: Alert, Oriented Labs: CBC, BMP 01/11/17 05:20 01/09/17 05:15 - ....Imaging Chest X-ray: Report Reviewed, Image Reviewed EKG: Report Reviewed, Image Reviewed Other: Report Reviewed, Image Reviewed (tele-intermittent Vpaced) Assessment/Plan Metastatic uterine CA Acute pulmonary embolism s/p IVC filter Permanent AF REC: HR is adequately controlled Ok to dc tele Receiving Lovenox BID Acceptable from a cardiac standpoint for dc planning, if remains inpatient can dc tele
--- NOTE | 2017-01-15 20:21 | PN ---
Progress Note, Physician History of Present Illness: No new complaints - Current Medication List Current Medications: Active Medications Docusate Sodium (Colace -) 300 mg PO HS [facility] Last Admin: 01/14/17 21:47 Dose: 300 mg Enoxaparin Sodium (Lovenox -) 70 mg SQ Q12H [facility] Last Admin: 01/15/17 14:39 Dose: 70 mg Hydrochlorothiazide (Hctz -) 25 mg PO DAILY [facility] Last Admin: 01/15/17 08:59 Dose: 25 mg Insulin Aspart (Novolog Vial Sliding Scale -) 1 vial SQ ACHS [facility] PRN Reason: Protocol Last Admin: 01/15/17 17:58 Dose: Not Given Losartan Potassium (Cozaar -) 50 mg PO DAILY [facility] Last Admin: 01/15/17 08:59 Dose: 50 mg Metformin HCl (Glucophage -) 1,000 mg PO DAILY@0700 [facility] Last Admin: 01/15/17 06:01 Dose: 1,000 mg Metoprolol Succinate (Toprol Xl -) 25 mg PO BID [facility] Last Admin: 01/15/17 08:59 Dose: 25 mg Ondansetron HCl (Zofran Injection) 4 mg IVPB Q6H PRN PRN Reason: NAUSEA Last Admin: 01/06/17 10:11 Dose: 4 mg Pantoprazole Sodium (Protonix -) 40 mg PO DAILY [facility] Last Admin: 01/15/17 08:59 Dose: 40 mg Sitagliptin Phosphate (Januvia -) 50 mg PO DAILY@0700 [facility] Last Admin: 01/15/17 06:01 Dose: 50 mg - Objective Vital Signs: Vital Signs Temperature 98.1 F 01/15/17 16:25 Pulse Rate 88 01/15/17 16:25 Respiratory Rate 18 01/15/17 16:25 Blood Pressure 144/74 01/15/17 16:25 O2 Sat by Pulse Oximetry (%) 96 01/15/17 11:55 Constitutional: Yes: No Distress Eyes: Yes: WNL HENT: Yes: WNL Neck: Yes: WNL, Supple Cardiovascular: Yes: WNL, Regular Rate and Rhythm Respiratory: Yes: WNL, Regular, CTA Bilaterally Gastrointestinal: Yes: WNL, Normal Bowel Sounds, Soft Labs: CBC, BMP 01/11/17 05:20 01/09/17 05:15 Problem List - Problems (1) Pulmonary embolism Assessment/Plan: S/P IVC filter Pt now on lovenox bid DC planning in am to STR Will get PT eval Code(s): I26.99 - OTHER PULMONARY EMBOLISM WITHOUT ACUTE COR PULMONALE Qualifiers: Pulmonary embolism type: other Chronicity: acute Acute cor pulmonale presence: without acute cor pulmonale Qualified Code(s): I26.99 - Other pulmonary embolism without acute cor pulmonale (2) Afib Assessment/Plan: Heart rate controlled Code(s): I48.91 - UNSPECIFIED ATRIAL FIBRILLATION (3) Diabetes Assessment/Plan: Cont novolog w/ sliding scale Cont januvia/metformin Code(s): E11.9 - TYPE 2 DIABETES MELLITUS WITHOUT COMPLICATIONS (4) Hypertension Assessment/Plan: BP stable Cont toprol/cozaar Code(s): I10 - ESSENTIAL (PRIMARY) HYPERTENSION (5) Uterine cancer Code(s): C55 - MALIGNANT NEOPLASM OF UTERUS, PART UNSPECIFIED
[2017-01-15] MEDS: DOCUSATE SODIUM 100 MG CAPSULE (FP) PO SCH (22:12)
[2017-01-16] MEDS: ENOXAPARIN NA (PORCINE) 60 MG/0.6 ML DISP.SYRIN SQ SCH ×2 (02:06→16:17)
[2017-01-16] MEDS: metFORMIN HCL 500 MG TABLET (FP) PO SCH (06:05)
[2017-01-16] MEDS: sitaGLIPtin PHOSPHATE 50 MG TABLET PO SCH (06:05)
[2017-01-16] MEDS: INSULIN SLIDING SCALE (NOVOLOG) 1 VIAL SQ SCH ×2 (06:05→12:00)
[2017-01-16 07:58] LABS: BASOPHIL 0.7 % (0-2.0); EOSINOPHIL 0.5 % (0-4.5); MCH 29.6 pg (25.7-33.7); MCHC 32.7 g/dl (32.0-36.0); MEAN CELL VOLUME 90.6 fl (80-96); MEAN PLT VOLUME 8.3 fl (7.5-11.1); NEUTROPHILS 72.4 % (42.8-82.8); PLATELET COUNT 286 K/MM3 (134-434); RDW 14.9 % (11.6-15.6)
[2017-01-16 08:30] LABS: ALBUMIN 2.9 g/dl (3.4-5.0); ANION GAP 8 (8-16); CALCIUM 10.9 mg/dL (8.5-10.1); CO2 29 mmol/L (21-32); CREATININE 1.2 mg/dL (0.55-1.02); GLUCOSE,RANDOM 148 mg/dL (74-106); SGOT/AST 27 U/L (15-37); SGPT/ALT 30 U/L (12-78)
[2017-01-16 08:31] LABS: ALK PHOS 77 U/L (45-117); BILIRUBIN,TOTAL 0.7 mg/dL (0.2-1.0); TOT PROT 6.8 g/dl (6.4-8.2)
[2017-01-16] MEDS: METOPROLOL SUCCINATE 25 MG TAB.SR.24H (FP) PO SCH (09:21)
[2017-01-16] MEDS: PANTOPRAZOLE 40 MG TABLET (FP) PO SCH (09:21)
[2017-01-16] MEDS: HYDROCHLOROTHIAZIDE 25 MG TABLET (FP) PO SCH (09:21)
[2017-01-16] MEDS: LOSARTAN POTASSIUM 50 MG TABLET (FP) PO SCH (09:21)
--- NOTE | 2017-01-16 09:27 | PN ---
Progress Note (short form) - Note Progress Note: No CP or SOB. No occult bleeding noted. H&H stable since she has been started on Lovenox. Intake & Output 01/13/17 01/14/17 01/15/17 01/16/17 23:59 23:59 23:59 23:59 Intake Total 300 Balance 300 Weight 150 lb 3.2 oz 152 lb 8.958 oz 152 lb 8 oz 150 lb 4.696 oz Last Vital Signs Temp Pulse Resp BP Pulse Ox 98.7 F 97 H 18 140/71 96 01/16/17 06:00 01/16/17 06:00 01/16/17 06:00 01/16/17 06:00 01/15/17 21:00 Active Medications Docusate Sodium (Colace -) 300 mg PO HS [facility] Last Admin: 01/15/17 22:12 Dose: 300 mg Enoxaparin Sodium (Lovenox -) 70 mg SQ Q12H [facility] Last Admin: 01/16/17 02:06 Dose: 70 mg Hydrochlorothiazide (Hctz -) 25 mg PO DAILY [facility] Last Admin: 01/16/17 09:21 Dose: 25 mg Insulin Aspart (Novolog Vial Sliding Scale -) 1 vial SQ ACHS [facility] PRN Reason: Protocol Last Admin: 01/16/17 06:05 Dose: 2 units Losartan Potassium (Cozaar -) 50 mg PO DAILY [facility] Last Admin: 01/16/17 09:21 Dose: 50 mg Metformin HCl (Glucophage -) 1,000 mg PO DAILY@0700 [facility] Last Admin: 01/16/17 06:05 Dose: 1,000 mg Metoprolol Succinate (Toprol Xl -) 25 mg PO BID [facility] Last Admin: 01/16/17 09:21 Dose: 25 mg Ondansetron HCl (Zofran Injection) 4 mg IVPB Q6H PRN PRN Reason: NAUSEA Last Admin: 01/06/17 10:11 Dose: 4 mg Pantoprazole Sodium (Protonix -) 40 mg PO DAILY [facility] Last Admin: 01/16/17 09:21 Dose: 40 mg Sitagliptin Phosphate (Januvia -) 50 mg PO DAILY@0700 [facility] Last Admin: 01/16/17 06:05 Dose: 50 mg Constitutional: Yes: NAD Eyes: Yes: WNL HENT: Yes: WNL Neck: Yes: WNL Cardiovascular: Yes: Pulse Irregular, S1, S2 Respiratory: Yes: few basilar rhonchi Gastrointestinal: Yes: Normal Bowel Sounds, Soft Extremities: Yes: WNL Edema: No Labs: Laboratory Results - last 24 hr 01/15/17 01/15/17 01/15/17 11:04 17:43 22:11 WBC RBC Hgb Hct MCV MCHC RDW Plt Count MPV Neutrophils % Lymphocytes % Monocytes % Eosinophils % Basophils % Sodium Potassium Chloride Carbon Dioxide Anion Gap BUN Creatinine Creat Clearance w eGFR POC Glucometer 156 129 127 Random Glucose Calcium Total Bilirubin AST ALT Alkaline Phosphatase Total Protein Albumin 01/16/17 01/16/17 01/16/17 06:04 06:30 06:30 WBC 5.0 RBC 3.66 Hgb 10.8 Hct 33.1 MCV 90.6 MCHC 32.7 RDW 14.9 Plt Count 286 MPV 8.3 Neutrophils % 72.4 Lymphocytes % 15.4 Monocytes % 11.0 H Eosinophils % 0.5 Basophils % 0.7 Sodium 139 Potassium 5.3 H D Chloride 102 Carbon Dioxide 29 Anion Gap 8 BUN 29 H D Creatinine 1.2 H D Creat Clearance w eGFR 42.50 POC Glucometer 153 Random Glucose 148 H Calcium 10.9 H Total Bilirubin 0.7 D AST 27 D ALT 30 D Alkaline Phosphatase 77 Total Protein 6.8 Albumin 2.9 L D Assessment/Plan Problem List - Problems (1) Pulmonary embolism Code(s): I26.99 - OTHER PULMONARY EMBOLISM WITHOUT ACUTE COR PULMONALE Qualifiers: Pulmonary embolism type: other Chronicity: acute Acute cor pulmonale presence: without acute cor pulmonale Qualified Code(s): I26.99 - Other pulmonary embolism without acute cor pulmonale (2) Abnormal vaginal bleeding Code(s): N93.9 - ABNORMAL UTERINE AND VAGINAL BLEEDING, UNSPECIFIED (3) Afib Code(s): I48.91 - UNSPECIFIED ATRIAL FIBRILLATION (4) CVA (cerebral infarction) Code(s): I63.9 - CEREBRAL INFARCTION, UNSPECIFIED (5) Chest pain Code(s): R07.9 - CHEST PAIN, UNSPECIFIED Qualifiers: Chest pain type: unspecified Qualified Code(s): R07.9 - Chest pain, unspecified (6) Diabetes Code(s): E11.9 - TYPE 2 DIABETES MELLITUS WITHOUT COMPLICATIONS (7) Hypertension Code(s): I10 - ESSENTIAL (PRIMARY) HYPERTENSION (8) Metastasis Code(s): C79.9 - SECONDARY MALIGNANT NEOPLASM OF UNSPECIFIED SITE Qualifiers: Area of secondary neoplastic involvement: respiratory structure Respiratory structure secondary neoplasm location: metastatic to lung Laterality: unspecified laterality Qualified Code(s): C78.00 - Secondary malignant neoplasm of unspecified lung (9) Shortness of breath Code(s): R06.02 - SHORTNESS OF BREATH (10) Uterine cancer Code(s): C55 - MALIGNANT NEOPLASM OF UTERUS, PART UNSPECIFIED (11) GI (gastrointestinal bleed) Code(s): K92.2 - GASTROINTESTINAL HEMORRHAGE, UNSPECIFIED Assessment/Plan Lovenox BID O2 as needed D/C Planning to STR Dr Alex Problem List - Problems (1) Pulmonary embolism Code(s): I26.99 - OTHER PULMONARY EMBOLISM WITHOUT ACUTE COR PULMONALE Qualifiers: Pulmonary embolism type: other Chronicity: acute Acute cor pulmonale presence: without acute cor pulmonale Qualified Code(s): I26.99 - Other pulmonary embolism without acute cor pulmonale (2) Abnormal vaginal bleeding Code(s): N93.9 - ABNORMAL UTERINE AND VAGINAL BLEEDING, UNSPECIFIED (3) Afib Code(s): I48.91 - UNSPECIFIED ATRIAL FIBRILLATION (4) CVA (cerebral infarction) Code(s): I63.9 - CEREBRAL INFARCTION, UNSPECIFIED (5) Chest pain Code(s): R07.9 - CHEST PAIN, UNSPECIFIED Qualifiers: Chest pain type: unspecified Qualified Code(s): R07.9 - Chest pain, unspecified (6) Diabetes Code(s): E11.9 - TYPE 2 DIABETES MELLITUS WITHOUT COMPLICATIONS (7) Hypertension Code(s): I10 - ESSENTIAL (PRIMARY) HYPERTENSION (8) Metastasis Code(s): C79.9 - SECONDARY MALIGNANT NEOPLASM OF UNSPECIFIED SITE Qualifiers: Area of secondary neoplastic involvement: respiratory structure Respiratory structure secondary neoplasm location: metastatic to lung Laterality: unspecified laterality Qualified Code(s): C78.00 - Secondary malignant neoplasm of unspecified lung (9) Shortness of breath Code(s): R06.02 - SHORTNESS OF BREATH (10) Uterine cancer Code(s): C55 - MALIGNANT NEOPLASM OF UTERUS, PART UNSPECIFIED
[2017-01-16] MEDS ORDERED: INSULIN (NOVOLOG) ASPART 100 UNITS/ML 10ML VIAL ONE (11:59)
[2017-01-16] MEDS ORDERED: PT OWN MED DRAWER 7, Y5N ONE (13:48)
[2017-01-16] MEDS ORDERED: ENOXAPARIN NA (PORCINE) 80 MG/0.8 ML DISP.SYRIN SQ SCH (15:30)
[2017-01-16 16:40] VITALS: BP 115/65; PULSE 84; TEMP 98.3
== END 2017-01-16 18:09 | disposition home or self-care (01) | DRG 167 ==
LOC: FER 18:54 → FM/S 01-05 01:25 → J2W 01-05 14:09 → J4W 01-15 03:12 → J8W 01-15 12:22
PROVIDERS: ADMIT Family Medicine Geriatric Medicine; ATTEND Family Medicine Geriatric Medicine
PROC: 06H03DZ Insertion of Intraluminal Device into Inferior Vena Cava, Percutaneous Approach (ICD-10-PCS; principal; 2017-01-06)
DX: I26.99 Other pulmonary embolism without acute cor pulmonale (principal); C78.00 Secondary malignant neoplasm of unspecified lung; K92.2 Gastrointestinal hemorrhage, unspecified; C54.1 Malignant neoplasm of endometrium; R07.89 Other chest pain; I48.2 Chronic atrial fibrillation; R91.1 Solitary pulmonary nodule; E78.5 Hyperlipidemia, unspecified; E11.9 Type 2 diabetes mellitus without complications; I10 Essential (primary) hypertension; N93.9 Abnormal uterine and vaginal bleeding, unspecified; Z79.01 Long term (current) use of anticoagulants; Z86.73 Personal history of transient ischemic attack (TIA), and cerebral infarction without residual deficits; Z95.0 Presence of cardiac pacemaker
CPT/HCPCS: 36415; 37191; 71010-TC; 71275-TC; 76000-TC; 76937-TC; 80048; 80053; 82550; 83735; 84484; 85025; 85027; 85379; 85730; 93005; 93306-TC; 93970-TC; 97116-GP; 97161-GP; 99283-25; C1769; C1880; J1644

== ENCOUNTER 2017-03-07 19:24 | Inpatient (IN) | payer OTHER ==
[2017-03-07 20:00] VITALS: BMI 21.9
--- NOTE | 2017-03-07 20:44 | PDOC ---
History of Present Illness - General History Source: Patient, Family, Old Records Exam Limitations: No Limitations - History of Present Illness Initial Comments: 03/07/17 21:14 The patient is a 87 year old female, with a significant past medical history of CVA, AFIB, Uterine cancer with lung mats, PE no coumadin, recently out of rehab , who presents to the emergency department with shortness of breath and weakness for the past 3 days. She reports that these symptoms have been progressing over the last few days. It is reported that the patient has been non ambulatory since shes been home and has had little PO intake. The patient denies chest pain, headache and dizziness. Denies fever, chills, nausea, vomit, diarrhea and constipation. Denies dysuria, frequency, urgency and hematuria. Allergies: None Past surgical history: Pacemaker Social history: No alcohol, tobacco or drug use reported PMD - Dr. Alberta Zhao <Lenny Hernandez - Last Filed: 03/07/17 21:14> <Jayne Prieto - Last Filed: 03/08/17 02:07> - General Chief Complaint: Weakness Stated Complaint: DIFF BREATHING Past History <Lenny Hernandez - Last Filed: 03/07/17 21:14> - Past Medical History Anemia: No Asthma: No Cancer: Yes (UTERINE CA S/P RT, lung) Cardiac Disorders: Yes (AFIB, PPM) CVA: Yes (2013 NO RESIDUAL.) COPD: No CHF: No Dementia: No Diabetes: Yes HTN: Yes Seizures: No Thyroid Disease: No - Surgical History Cardiac Surgery: Yes (PACEMAKER) - Immunization History Immunization Up to Date: No - Psycho/Social/Smoking Cessation Hx Anxiety: No Suicidal Ideation: No Smoking Status: No Smoking History: Never smoked Have you smoked in the past 12 months: No Number of Cigarettes Smoked Daily: 0 Information on smoking cessation initiated: No Hx Alcohol Use: No Drug/Substance Use Hx: No Substance Use Type: None Hx Substance Use Treatment: No <Jayne Prieto - Last Filed: 03/08/17 02:07> - Past Medical History Allergies/Adverse Reactions: Allergies Allergy/AdvReac Type Severity Reaction Status Date / Time No Known Allergies Allergy Verified 01/04/17 17:27 Home Medications: Ambulatory Orders Losartan Potassium 25 mg PO DAILY 07/31/14 Aspirin [ASA -] 81 mg PO DAILY 11/23/16 Linagliptin/Metformin HCl [Jentadueto 2.5 mg-1000 mg Tab] 0.5 tab PO DAILY 11/23 Amlodipine Besylate [Norvasc -] 5 mg PO DAILY 01/04/17 Metoprolol Succinate [Toprol Xl -] 25 mg PO DAILY 01/04/17 Review of Systems - Review of Systems Able to Perform ROS?: Yes Comments:: 03/07/17 21:15 GENERAL/CONSTITUTIONAL: (+) Weakness. No fever or chills. HEAD, EYES, EARS, NOSE AND THROAT: No change in vision. No ear pain or discharge. No sore throat. CARDIOVASCULAR: (+) Shortness of breath. No chest pain RESPIRATORY: No cough, wheezing, or hemoptysis. GASTROINTESTINAL: No nausea, vomiting, diarrhea or constipation. GENITOURINARY: No dysuria, frequency, or change in urination. MUSCULOSKELETAL: No joint or muscle swelling or pain. No neck or back pain. SKIN: No rash NEUROLOGIC: No headache, vertigo, loss of consciousness, or change in strength/ sensation. ENDOCRINE: No increased thirst. No abnormal weight change HEMATOLOGIC/LYMPHATIC: No anemia, easy bleeding, or history of blood clots. ALLERGIC/IMMUNOLOGIC: No hives or skin allergy. <Lenny Hernandez - Last Filed: 03/07/17 21:14> *Physical Exam - Vital Signs Last Vital Signs Temp Pulse Resp BP Pulse Ox 98.2 F 98 H 16 140/71 96 03/07/17 19:54 03/07/17 19:54 03/07/17 19:54 03/07/17 19:54 03/07/17 19:54 - Physical Exam Comments: 03/07/17 21:15 GENERAL: Awake, alert, and fully oriented, in no acute distress HEAD: No signs of trauma, normocephalic, atraumatic EYES: PERRLA, EOMI, sclera anicteric, conjunctiva clear ENT: Auricles normal inspection, hearing grossly normal, nares patent, oropharynx clear without exudates. (+) Dry mucosa. NECK: Normal ROM, supple, no lymphadenopathy, JVD, or masses LUNGS: (+) Crackles at the bases. No distress, speaks full sentences. HEART: (+) Irregular, no murmurs, rubs or gallops, peripheral pulses normal and equal bilaterally. ABDOMEN: Soft, nontender, normoactive bowel sounds. No guarding, no rebound. No masses EXTREMITIES: Normal inspection, Normal range of motion, no edema. No clubbing or cyanosis. NEUROLOGICAL: (+) Right sided facial droop, right facial nasal flattening. 4/5 strength in upper right extremity, 5/5 strength in upper left extremity. 5/5 strength in lower exxtremities bilaterally. SKIN: Warm, Dry, normal turgor, no rashes or lesions noted. <Lenny Hernandez - Last Filed: 03/07/17 21:14> - Vital Signs Last Vital Signs Temp Pulse Resp BP Pulse Ox 98.2 F 98 H 16 140/71 96 03/07/17 19:54 03/07/17 19:54 03/07/17 19:54 03/07/17 19:54 03/07/17 19:54 <Jayne Prieto - Last Filed: 03/08/17 02:07> Heart Score/ECG Review #1 General ECG Interpretation: Normal Rate (97), Normal Intervals, No acute ischemic changes Compared to previous ECG there are: No significant change (comparison 01/04/17) 03/08/17 01:10 paced rhythm, TWIO I, AVL , old - ECG Intrepretation Rhythm: Regular Rhythm <Jayne Prieto - Last Filed: 03/08/17 02:07> ED Treatment Course - LABORATORY CBC & Chemistry Diagram: 03/07/17 21:00 03/07/17 21:00 <Lenny Hernandez - Last Filed: 03/07/17 21:14> - LABORATORY CBC & Chemistry Diagram: 03/07/17 21:00 03/07/17 23:56 - RADIOLOGY Radiology Studies Ordered: Category Date Time Status HEAD CT WITHOUT CONTRAST [CT] Stat CT Scan 03/07/17 20:40 Ordered CHEST X-RAY PORTABLE* [RAD] Stat Radiology 03/07/17 20:37 Ordered <Jayne Prieto - Last Filed: 03/08/17 02:07> Medical Decision Making - Medical Decision Making 03/07/17 20:41 87 yo F with h/o CVA, afib uterine CA with lung mets ( PE ) not on coumadin ( gi bleed) recenlyt in rehab, and home for two weeks. here today with c/o sob and weakness. pt family states weakness is generalized. she does have h/o old cva, unsure if facial droop is new or old. no f/c no cp no n/v no leg swelling. sob has been progressive. decreased PO intake. 03/07/17 20:42 on exam pt awake alert right nasolabial fold flattening. dry mucous membranes. crackles bilat lung bases. heart irreg reg. no m/r/g. abd soft NT ND. skin warm and dry. plan: differential renal failure, anemia. pna, recurrent PE or effusion, uti, electrolyte abnormality such as hyponatremia, dehydration . plan ct head. cxr ekg labs, [facility] admission. pcp dr. alberta Zhao. 03/08/17 01:10 <Jayne Prieto - Last Filed: 03/08/17 02:07> *DC/Admit/Observation/Transfer - Attestations Scribe Attestion: 03/07/17 21:15 Documentation prepared by Lenny Hernandez, acting as medical sales consultant for Jayne Prieto MD <Lenny Hernandez - Last Filed: 03/07/17 21:14> - Discharge Dispostion Admit: Yes <Jayne Pireto - Last Filed: 03/08/17 02:07> Diagnosis at time of Disposition: Malignant neoplasm of lung, Shortness of breath at rest - Referrals Referrals: Alberta Zhao MD [Primary Care Provider] -
[2017-03-07 21:14] LABS: BASOPHIL 0.7 % (0-2.0); EOSINOPHIL 0.1 % (0-4.5); MCH 29.6 pg (25.7-33.7); MCHC 32.5 g/dl (32.0-36.0); MEAN CELL VOLUME 91.2 fl (80-96); NEUTROPHILS 81.7 % (42.8-82.8); PLATELET COUNT 146 K/MM3 (134-434)
[2017-03-07 21:29] LABS: INR 1.28 (0.82-1.09); PROTHROMBIN TIME (PATIENT) 14.1 SEC (9.98-11.88)
[2017-03-08 00:47] LABS: ALBUMIN 3.5 g/dl (3.4-5.0); ANION GAP 12 (8-16); BILIRUBIN,TOTAL 0.9 mg/dL (0.2-1.0); CALCIUM 11.1 mg/dL (8.5-10.1); CO2 22 mmol/L (21-32); GLUCOSE,RANDOM 122 mg/dL (74-106); SGOT/AST 15 U/L (15-37); SGPT/ALT 12 U/L (12-78); TOT PROT 7.4 g/dl (6.4-8.2)
[2017-03-08 00:48] LABS: ALK PHOS 74 U/L (45-117)
[2017-03-08 01:18] LABS: CPK 31 IU/L (26-192); TROPONIN I < 0.02 ng/ml (0.00-0.05)
[2017-03-08 02:26] LABS: PH,URINE 5.5 (5.0-8.0); URINE APPEARANCE CLEAR; URINE BILIRUBIN NEGATIVE (NEGATIVE); URINE BLOOD 1+ (NEGATIVE); URINE COLOR LT. YELLOW; URINE GLUCOSE (UA) NEGATIVE (NEGATIVE); URINE KETONE 1+ (NEGATIVE); URINE LEUK ESTERASE NEGATIVE (NEGATIVE); URINE NITRITE NEGATIVE (NEGATIVE); URINE PROTEIN TRACE (NEGATIVE); URINE UROBILINOGEN 0.2 mg/dL (0.2-1.0)
[2017-03-08 04:11] LABS: URINE BACTERIA RARE /hpf (NONE SEEN); URINE HYALINE CAST 28 /lpf; URINE RBC 1 /hpf (0-3); URINE WBC 1 /hpf (3-5)
[2017-03-08] MEDS ORDERED: PATIENT'S OWN MEDICATION (NON-FORMULARY) (Linagliptin/Metformin Hcl [Jentadueto 2.5 Mg-100 PO SCH (11:45)
[2017-03-08] MEDS: DEXTROSE 5%-0.45% SALINE 1,000 ML IV SCH (12:38)
[2017-03-08] MEDS: amLODIPine BESYLATE 5 MG TABLET (FP) PO SCH (12:42)
[2017-03-08] MEDS: ASPIRIN 81 MG CHEWABLE TABLETS PO SCH (12:42)
--- NOTE | 2017-03-08 14:52 | EKG ---
Test Reason : Blood Pressure : / mmHG Vent. Rate : 097 BPM Atrial Rate : 468 BPM P-R Int : 000 ms QRS Dur : 086 ms QT Int : 336 ms P-R-T Axes : 000 003 -54 degrees QTc Int : 426 ms ATRIAL FIBRILLATION WITH OCCASIONAL ventricular-paced complexes NONSPECIFIC T WAVE ABNORMALITY ABNORMAL ECG Confirmed by AMBAR GIRALDO, DELFIN ([id number]) on 03/08/2017 2:52:05 PM Referred By: Confirmed By:DELFIN VILLALTA MD
[2017-03-08] MEDS ORDERED: ENOXAPARIN NA (PORCINE) 100 MG/1 ML DISP.SYRIN SQ ONE (15:00)
[2017-03-08] MEDS: LETROZOLE 2.5 MG TABLET (FP) PO SCH (16:25)
--- NOTE | 2017-03-08 16:30 | CONSULT ---
Consult Consult Specialty:: Hematology/Oncology Reason for Consultation:: PE - History of Present Illness History of Present Illness: 86 y/o female with Hx of metastatic uterine Ca on letrozole , several cardiac comorbidities with a prior history of a PE and uterine bleeding presenting with an acute submassive PE in December 2016, when she did have a IVC filter placed and was on lovenox with stable crit. Patient now is recently out of rehab, presents to the emergency department with shortness of breath and weakness for the past 3 days. She reports that these symptoms have been progressing over the last few days. It is reported that the patient has been non ambulatory since shes been home and has had little PO intake. The patient denies chest pain, headache and dizziness. Denies fever, chills, nausea, vomit, diarrhea and constipation. Denies dysuria, frequency, urgency and hematuria. 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 Cardio/Vascular: Yes: AFIB, HTN, Hyperlipdemia, Other (PPM) Pulmonary: Yes: Pulmonary Embolus Gastrointestinal: Yes: Cancer Renal/: Yes: Cancer (uterine cancer) Endocrine: Yes: Diabetes Mellitus - Past Surgical History Past Surgical History: Yes: Permanent Pacemaker - Alcohol/Substance Use Hx Alcohol Use: No - Smoking History Smoking history: Never smoked Have you smoked in the past 12 months: No Aproximately how many cigarettes per day: 0 - Social History Usual Living Arrangement: With Child ADL: Family Assistance History of Recent Travel: No Home Medications - Allergies Allergies/Adverse Reactions: Allergies Allergy/AdvReac Type Severity Reaction Status Date / Time No Known Allergies Allergy Verified 01/04/17 17:27 - Home Medications Home Medications: Ambulatory Orders Losartan Potassium 25 mg PO DAILY 07/31/14 Aspirin [ASA -] 81 mg PO DAILY 11/23/16 Linagliptin/Metformin HCl [Jentadueto 2.5 mg-1000 mg Tab] 0.5 tab PO DAILY 11/23 Amlodipine Besylate [Norvasc -] 5 mg PO DAILY 01/04/17 Metoprolol Succinate [Toprol Xl -] 25 mg PO DAILY 01/04/17 Letrozole 2.5 mg PO DAILY 03/08/17 Mirtazapine 7.5 mg PO DAILY 03/08/17 Family Disease History - Family Disease History Family History: Denies Review of Systems - Review of Systems Constitutional: reports: Weakness Respiratory: reports: SOB Physical Exam Vital Signs: Vital Signs Temperature 97.4 F L 03/08/17 11:54 Pulse Rate 92 H 03/08/17 11:54 Respiratory Rate 18 03/08/17 11:54 Blood Pressure 128/72 03/08/17 11:54 O2 Sat by Pulse Oximetry (%) 100 03/08/17 08:32 Constitutional: Yes: Calm, Thin Eyes: Yes: Conjunctiva Clear HENT: Yes: Atraumatic, Normocephalic Neck: Yes: Supple, Trachea Midline Cardiovascular: Yes: Regular Rate and Rhythm Respiratory: Yes: Regular, CTA Bilaterally Gastrointestinal: Yes: Normal Bowel Sounds Psychiatric: Yes: Alert, Oriented Imaging - Results Cat Scan: Report Reviewed Problem List - Problems (1) Uterine cancer Code(s): C55 - MALIGNANT NEOPLASM OF UTERUS, PART UNSPECIFIED (2) Pulmonary embolism Code(s): I26.99 - OTHER PULMONARY EMBOLISM WITHOUT ACUTE COR PULMONALE Qualifiers: Assessment/Plan Pulmonary Embolus Metastatic endometrial cancer ,progressing -the present PE that was seen in the CT, likely the one she was diagnosed with in 12/2016. she was discharged on lovenox. She does have mild vaginal spotting , hematocrit is stable, will continue with 1.5mg/kg/day of lovenox -Re: the metastatic endometrial cancer, pt continues to be on letrozole, unfortunately pt's malignancy is progressing through the oral hormonal pill. Pt follows with Dr.Sara Boyce of [facility] at [facility] , I have accessed pts chart, chemo was discussed and she did not want to consider, did discuss with the pt about best supportive care for her and no decision was made. I explained to the pt about the condition of her malignancy, she did enquire if any "pill" form could be given, though we do have megace/tamoxifen as an option, but both are thrombogenic and it would be a challenge with her snow in the setting of large PE. -I did offer that I could speak to her family members,which she agreed to. -poor prognosis.
[2017-03-08] MEDS: MIRTAZAPINE 15 MG TABLET (FP) PO SCH (21:22)
--- NOTE | 2017-03-08 21:40 | HP ---
Admitting History and Physical - Admission History of Present Illness: Pt is a 87 y/o female who is a poor historian with PMH significant for CVA, AFIB , Uterine cancer with lung mats, and PE(in 01/06) Pt also had a IVC filter placed due to bleeding. Pt has been in rehab recently and now presented to the ER with SOB and weakness for the past 3 days. She reports that these symptoms have been progressing over the last few days. It is reported that the patient has been non ambulatory since shes been home and has had little PO intake. Pt denies any cough/chest pain/palpitations/fever. In the ERA pt had CTA scan chest wc showed decrease size of PE/pleural effussion/increased # of metastatic masses. Pt also had ct scan head wc was unremarkable. 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 Cardiovascular: Yes: AFIB, HTN, Hyperlipdemia, Other (PPM) Pulmonary: Yes: Pulmonary Embolus Gastrointestinal: Yes: Cancer Renal/: Yes: Cancer (uterine cancer) Endocrine: Yes: Diabetes Mellitus - Past Surgical History Past Surgical History: Yes: Permanent Pacemaker - Smoking History Smoking history: Never smoked Have you smoked in the past 12 months: No Aproximately how many cigarettes per day: 0 - Alcohol/Substance Use Hx Alcohol Use: No - Social History ADL: Family Assistance History of Recent Travel: No Home Medications - Allergies Allergies/Adverse Reactions: Allergies Allergy/AdvReac Type Severity Reaction Status Date / Time No Known Allergies Allergy Verified 01/04/17 17:27 - Home Medications Home Medications: Ambulatory Orders Losartan Potassium 25 mg PO DAILY 07/31/14 Aspirin [ASA -] 81 mg PO DAILY 11/23/16 Linagliptin/Metformin HCl [Jentadueto 2.5 mg-1000 mg Tab] 0.5 tab PO DAILY 11/23 Amlodipine Besylate [Norvasc -] 5 mg PO DAILY 01/04/17 Metoprolol Succinate [Toprol Xl -] 25 mg PO DAILY 01/04/17 Letrozole 2.5 mg PO DAILY 03/08/17 Mirtazapine 7.5 mg PO DAILY 03/08/17 Family Disease History - Family Disease History Family History: Unremarkable Review of Systems - Review of Systems Constitutional: reports: Loss of Appetite, Weakness HENT: reports: No Symptoms Neck: reports: No Symptoms Cardiovascular: reports: Shortness of Breath Respiratory: reports: SOB Gastrointestinal: reports: No Symptoms Physical Examination Vital Signs: Vital Signs Temperature 98.8 F 03/08/17 21:10 Pulse Rate 82 03/08/17 21:10 Respiratory Rate 18 03/08/17 21:10 Blood Pressure 141/76 03/08/17 21:10 O2 Sat by Pulse Oximetry (%) 98 03/08/17 15:00 Constitutional: Yes: No Distress HENT: Yes: WNL Neck: Yes: WNL, Supple Cardiovascular: Yes: WNL, Regular Rate and Rhythm Respiratory: Yes: Diminished Gastrointestinal: Yes: WNL, Normal Bowel Sounds, Soft Extremities: Yes: WNL Edema: No Neurological: Yes: WNL, Alert, Oriented ...Motor Strength: WNL Problem List - Problems (1) Shortness of breath Assessment/Plan: Probably due to metastatic cancer Cont nebulizers Pulmonary consult Will need palliative care consult Code(s): R06.02 - SHORTNESS OF BREATH (2) Uterine cancer Assessment/Plan: Onco consult Code(s): C55 - MALIGNANT NEOPLASM OF UTERUS, PART UNSPECIFIED (3) Afib Assessment/Plan: Heart rate controlled Code(s): I48.91 - UNSPECIFIED ATRIAL FIBRILLATION (4) CVA (cerebral infarction) Code(s): I63.9 - CEREBRAL INFARCTION, UNSPECIFIED (5) Hypertension Code(s): I10 - ESSENTIAL (PRIMARY) HYPERTENSION (6) Pulmonary embolism Code(s): I26.99 - OTHER PULMONARY EMBOLISM WITHOUT ACUTE COR PULMONALE Qualifiers:
[2017-03-09] MEDS: DEXTROSE 5%-0.45% SALINE 1,000 ML IV SCH ×2 (01:10→16:26)
[2017-03-09] MEDS ORDERED: PT OWN MED DRAWER 7, Y5N ONE ×2 (09:32→20:09)
[2017-03-09] MEDS: amLODIPine BESYLATE 5 MG TABLET (FP) PO SCH (09:34)
[2017-03-09] MEDS: LETROZOLE 2.5 MG TABLET (FP) PO SCH (09:34)
[2017-03-09] MEDS: METOPROLOL SUCCINATE 25 MG TAB.SR.24H (FP) PO SCH (09:34)
[2017-03-09] MEDS: LOSARTAN POTASSIUM 25 MG TABLET PO SCH (09:34)
[2017-03-09] MEDS: ASPIRIN 81 MG CHEWABLE TABLETS PO SCH (09:34)
--- NOTE | 2017-03-09 10:43 | CON.PULM ---
Consult Consult Specialty:: PULMONARY Referred by:: JAGRUTI Reason for Consultation:: FAILURE TO THRIVE - History of Present Illness Chief Complaint: SOB/ANOREXIA/WEAKNESS History of Present Illness: The patient is a 87 year old female, with a significant past medical history of CVA, AFIB, Uterine cancer with lung mets, PE, GIB, pleural effusion, recently out of rehab, who presents to the emergency department with shortness of breath and weakness for the past 3 days. She reports that these symptoms have been progressing over the last few days. It is reported that the patient has been non ambulatory since shes been home and has had little PO intake. The patient denies chest pain, headache and dizziness. Denies fever, chills, nausea, vomit, diarrhea and constipation. Denies dysuria, frequency, urgency and hematuria. Patient is a poor historian. 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 Cardio/Vascular: Yes: AFIB, HTN, Hyperlipdemia, Other (PPM) Pulmonary: Yes: Pulmonary Embolus Gastrointestinal: Yes: Cancer, GI Bleed Renal/: Yes: Cancer (uterine cancer) Heme/Onc: Yes: Anemia Endocrine: Yes: Diabetes Mellitus - Past Surgical History Past Surgical History: Yes: Permanent Pacemaker - Alcohol/Substance Use Hx Alcohol Use: No - Smoking History Smoking history: Never smoked Have you smoked in the past 12 months: No Aproximately how many cigarettes per day: 0 - Social History Usual Living Arrangement: With Child ADL: Family Assistance Place of : [facility] History of Recent Travel: No Home Medications - Allergies Allergies/Adverse Reactions: Allergies Allergy/AdvReac Type Severity Reaction Status Date / Time No Known Allergies Allergy Verified 01/04/17 17:27 - Home Medications Home Medications: Ambulatory Orders Losartan Potassium 25 mg PO DAILY 07/31/14 Aspirin [ASA -] 81 mg PO DAILY 11/23/16 Linagliptin/Metformin HCl [Jentadueto 2.5 mg-1000 mg Tab] 0.5 tab PO DAILY 11/23 Amlodipine Besylate [Norvasc -] 5 mg PO DAILY 01/04/17 Metoprolol Succinate [Toprol Xl -] 25 mg PO DAILY 01/04/17 Letrozole 2.5 mg PO DAILY 03/08/17 Mirtazapine 7.5 mg PO DAILY 03/08/17 Family Disease History - Family Disease History Family History: Unremarkable Review of Systems Unable to obtain ROS, reason: poor informant Physical Exam Vital Sings: Vital Signs Temperature 98.6 F 03/09/17 09:00 Pulse Rate 83 03/09/17 09:00 Respiratory Rate 18 03/09/17 09:00 Blood Pressure 124/62 03/09/17 09:00 O2 Sat by Pulse Oximetry (%) 96 03/08/17 21:00 Constitutional: Yes: Calm Eyes: Yes: EOM Intact HENT: Yes: Normocephalic Neck: Yes: Trachea Midline Cardiovascular: Yes: S1, S2 Respiratory: Yes: Diminished (at right base) Gastrointestinal: Yes: Soft Edema: LLE: Trace, RLE: Trace Neurological: Yes: Alert Labs: ALL REVIEWED Imaging - Results Chest X-ray: Report Reviewed, Image Reviewed Cat Scan: Report Reviewed, Image Reviewed EKG: Report Reviewed, Image Reviewed Problem List - Problems (1) Afib Code(s): I48.91 - UNSPECIFIED ATRIAL FIBRILLATION (2) CVA (cerebral infarction) Code(s): I63.9 - CEREBRAL INFARCTION, UNSPECIFIED (3) Diabetes Code(s): E11.9 - TYPE 2 DIABETES MELLITUS WITHOUT COMPLICATIONS (4) Metastasis Code(s): C79.9 - SECONDARY MALIGNANT NEOPLASM OF UNSPECIFIED SITE Qualifiers: Area of secondary neoplastic involvement: respiratory structure Respiratory structure secondary neoplasm location: metastatic to lung Laterality: unspecified laterality Qualified Code(s): C78.00 - Secondary malignant neoplasm of unspecified lung (5) Pulmonary embolism Code(s): I26.99 - OTHER PULMONARY EMBOLISM WITHOUT ACUTE COR PULMONALE Qualifiers: (6) Pulmonary nodule, left Code(s): R91.1 - SOLITARY PULMONARY NODULE (7) Shortness of breath Code(s): R06.02 - SHORTNESS OF BREATH (8) Pleural effusion Code(s): J90 - PLEURAL EFFUSION, NOT ELSEWHERE CLASSIFIED (9) CVA (cerebral vascular accident) Code(s): I63.9 - CEREBRAL INFARCTION, UNSPECIFIED Assessment/Plan ADVANCED AGE WITH MULTIPLE MEDICAL PROBLEMS PRESENT ISSUE LIKELY RELATED TO ENLARGING RIGHT PLEURAL EFFUSION WITH COMPRESSIVE ATELECTASIS PE PRESENT ON CTA LIKELY RESIDUAL FINDING FROM LAST EPISODE LAST EPISODE/ REMAINS ON LOVENOX/IVC IN PLACE PROGRESSION OF UNDERLYING ENDOMETRIAL CA WOULD DIRECT TREATMENT IN A PALLIATIVE MANNER AT THIS POINT ONE CONSIDERATION WOULD BE TO HOLD LOVENOX AND SCHEDULE THORACENTESIS CONTINUE O2 SUPPLEMENTATION PRN WILL FOLLOW WITH YOU Gris LEON MD
[2017-03-09 11:14] LABS: BASOPHIL 0.8 % (0-2.0); MCH 28.9 pg (25.7-33.7); MCHC 31.9 g/dl (32.0-36.0); MEAN CELL VOLUME 90.6 fl (80-96); MEAN PLT VOLUME 8.4 fl (7.5-11.1); NEUTROPHILS 76.7 % (42.8-82.8); PLATELET COUNT 130 K/MM3 (134-434); RDW 15.6 % (11.6-15.6)
[2017-03-09 11:37] LABS: ALBUMIN 2.8 g/dl (3.4-5.0); ANION GAP 9 (8-16); CO2 22 mmol/L (21-32); GLUCOSE,RANDOM 196 mg/dL (74-106)
[2017-03-09 11:42] LABS: ALK PHOS 68 U/L (45-117); BILIRUBIN,TOTAL 0.5 mg/dL (0.2-1.0); CREATININE 0.9 mg/dL (0.55-1.02); SGOT/AST 12 U/L (15-37); SGPT/ALT 12 U/L (12-78); TOT PROT 6.5 g/dl (6.4-8.2)
--- NOTE | 2017-03-09 21:07 | PN ---
Progress Note, Physician History of Present Illness: No new complaints - Current Medication List Current Medications: Active Medications Amlodipine Besylate (Norvasc -) 5 mg PO DAILY [facility] Last Admin: 03/09/17 09:34 Dose: 5 mg Aspirin (Asa -) 81 mg PO DAILY [facility] Last Admin: 03/09/17 09:34 Dose: 81 mg Dextrose/Sodium Chloride (D5-1/2ns -) 1,000 mls @ 75 mls/hr IV ASDIR [facility] Last Admin: 03/09/17 16:26 Dose: 75 mls/hr Letrozole (Femara -) 2.5 mg PO DAILY [facility] Last Admin: 03/09/17 09:34 Dose: 2.5 mg Losartan Potassium (Cozaar -) 25 mg PO DAILY [facility] Last Admin: 03/09/17 09:34 Dose: 25 mg Metoprolol Succinate (Toprol Xl -) 25 mg PO DAILY [facility] Last Admin: 03/09/17 09:34 Dose: 25 mg Mirtazapine (Remeron -) 7.5 mg PO HS [facility] Last Admin: 03/08/17 21:22 Dose: 7.5 mg Non-Formulary Medication (Linagliptin/Metformin Hcl [Jentadueto 2.5 Mg-1000 Mg Tab]) 0.5 tab PO DAILY [facility] - Objective Vital Signs: Vital Signs Temperature 98.2 F 03/09/17 19:01 Pulse Rate 87 03/09/17 19:01 Respiratory Rate 18 03/09/17 19:01 Blood Pressure 134/51 03/09/17 19:01 O2 Sat by Pulse Oximetry (%) 99 03/09/17 09:00 Constitutional: Yes: No Distress Neck: Yes: WNL, Supple Cardiovascular: Yes: WNL, Regular Rate and Rhythm Respiratory: Yes: WNL, Regular, CTA Bilaterally Gastrointestinal: Yes: WNL, Normal Bowel Sounds, Soft Labs: CBC, BMP 03/09/17 10:46 03/09/17 10:46 INR, PTT INR 1.28 (0.82-1.09) H 03/07/17 21:00 Problem List - Problems (1) Shortness of breath Code(s): R06.02 - SHORTNESS OF BREATH (2) Uterine cancer Code(s): C55 - MALIGNANT NEOPLASM OF UTERUS, PART UNSPECIFIED (3) Afib Code(s): I48.91 - UNSPECIFIED ATRIAL FIBRILLATION (4) CVA (cerebral infarction) Code(s): I63.9 - CEREBRAL INFARCTION, UNSPECIFIED (5) Hypertension Code(s): I10 - ESSENTIAL (PRIMARY) HYPERTENSION (6) Pulmonary embolism Code(s): I26.99 - OTHER PULMONARY EMBOLISM WITHOUT ACUTE COR PULMONALE Qualifiers:
[2017-03-09] MEDS: MIRTAZAPINE 15 MG TABLET (FP) PO SCH (22:00)
[2017-03-10] MEDS: DEXTROSE 5%-0.45% SALINE 1,000 ML IV SCH ×3 (04:00→19:07)
[2017-03-10] MEDS ORDERED: PT OWN MED DRAWER 7, Y5N ONE ×2 (09:16→21:04)
[2017-03-10] MEDS: ASPIRIN 81 MG CHEWABLE TABLETS PO SCH (09:29)
[2017-03-10 09:30] LABS: BASOPHIL 0.4 % (0-2.0); EOSINOPHIL 1.1 % (0-4.5); MCH 29.4 pg (25.7-33.7); MCHC 32.4 g/dl (32.0-36.0); MEAN CELL VOLUME 90.6 fl (80-96); MEAN PLT VOLUME 8.4 fl (7.5-11.1); NEUTROPHILS 77.4 % (42.8-82.8); PLATELET COUNT 137 K/MM3 (134-434); RDW 15.6 % (11.6-15.6); WHITE BLOOD COUNT 3.6 K/mm3 (4.0-10.0)
[2017-03-10] MEDS: LETROZOLE 2.5 MG TABLET (FP) PO SCH (09:30)
[2017-03-10 09:55] LABS: ALBUMIN 2.8 g/dl (3.4-5.0); ANION GAP 7 (8-16); BILIRUBIN,TOTAL 0.7 mg/dL (0.2-1.0); CALCIUM 10.1 mg/dL (8.5-10.1); CO2 25 mmol/L (21-32); GLUCOSE,RANDOM 209 mg/dL (74-106); SGOT/AST 12 U/L (15-37); SGPT/ALT 12 U/L (12-78); TOT PROT 6.7 g/dl (6.4-8.2)
[2017-03-10 09:56] LABS: ALK PHOS 73 U/L (45-117)
--- NOTE | 2017-03-10 12:48 | PN ---
Progress Note (short form) - Note Progress Note: PULMONARY Denies shortness of breath or chest pain. No fevers or chills. Last Vital Signs Temp Pulse Resp BP Pulse Ox 97.3 F L 62 18 101/64 96 03/10/17 11:04 03/10/17 11:04 03/10/17 11:04 03/10/17 11:04 03/09/17 21:00 Gen: NAD, breathing nonlabored Heart: RRR Lung: decreased breath sounds right base Abd: soft, nontender Ext: no edema CBC, BMP 03/10/17 09:05 03/10/17 09:05 Active Medications Amlodipine Besylate (Norvasc -) 5 mg PO DAILY [facility] Last Admin: 03/09/17 09:34 Dose: 5 mg Aspirin (Asa -) 81 mg PO DAILY [facility] Last Admin: 03/10/17 09:29 Dose: 81 mg Dextrose/Sodium Chloride (D5-1/2ns -) 1,000 mls @ 75 mls/hr IV ASDIR [facility] Last Admin: 03/10/17 04:00 Dose: 75 mls/hr Letrozole (Femara -) 2.5 mg PO DAILY [facility] Last Admin: 03/10/17 09:30 Dose: 2.5 mg Losartan Potassium (Cozaar -) 25 mg PO DAILY [facility] Last Admin: 03/09/17 09:34 Dose: 25 mg Metoprolol Succinate (Toprol Xl -) 25 mg PO DAILY [facility] Last Admin: 03/09/17 09:34 Dose: 25 mg Mirtazapine (Remeron -) 7.5 mg PO HS [facility] Last Admin: 03/09/17 22:00 Dose: 7.5 mg Non-Formulary Medication (Linagliptin/Metformin Hcl [Jentadueto 2.5 Mg-1000 Mg Tab]) 0.5 tab PO DAILY [facility] A/P Metastatic Endometrial Cancer Lung Nodules/Mets Pulmonary Embolism Pleural Effusion Atrial Fibrillation h/o CVA HTN - continue anticoagulation - pt asymptomatic at this time, given underlying disease and need for anticoagulation,would hold off on thoracentesis unless pt becomes symptomatic - O2 as needed
[2017-03-10] MEDS: METOPROLOL SUCCINATE 25 MG TAB.SR.24H (FP) PO SCH (13:12)
[2017-03-10] MEDS: LOSARTAN POTASSIUM 25 MG TABLET PO SCH (13:12)
[2017-03-10] MEDS: amLODIPine BESYLATE 5 MG TABLET (FP) PO SCH (13:12)
--- NOTE | 2017-03-10 16:59 | PN ---
Progress Note, Physician History of Present Illness: No new complaints - Current Medication List Current Medications: Active Medications Amlodipine Besylate (Norvasc -) 5 mg PO DAILY [facility] Last Admin: 03/10/17 13:12 Dose: Not Given Aspirin (Asa -) 81 mg PO DAILY [facility] Last Admin: 03/10/17 09:29 Dose: 81 mg Dextrose/Sodium Chloride (D5-1/2ns -) 1,000 mls @ 75 mls/hr IV ASDIR [facility] Last Admin: 03/10/17 13:12 Dose: Not Given Letrozole (Femara -) 2.5 mg PO DAILY [facility] Last Admin: 03/10/17 09:30 Dose: 2.5 mg Losartan Potassium (Cozaar -) 25 mg PO DAILY [facility] Last Admin: 03/10/17 13:12 Dose: Not Given Metoprolol Succinate (Toprol Xl -) 25 mg PO DAILY [facility] Last Admin: 03/10/17 13:12 Dose: Not Given Mirtazapine (Remeron -) 7.5 mg PO HS [facility] Last Admin: 03/09/17 22:00 Dose: 7.5 mg Non-Formulary Medication (Linagliptin/Metformin Hcl [Jentadueto 2.5 Mg-1000 Mg Tab]) 0.5 tab PO DAILY [facility] - Objective Vital Signs: Vital Signs Temperature 98.9 F 03/10/17 15:11 Pulse Rate 88 03/10/17 15:11 Respiratory Rate 18 03/10/17 15:11 Blood Pressure 142/71 03/10/17 15:11 O2 Sat by Pulse Oximetry (%) 98 03/10/17 09:00 Constitutional: Yes: No Distress HENT: Yes: WNL Neck: Yes: WNL, Supple Cardiovascular: Yes: WNL, Regular Rate and Rhythm Respiratory: Yes: WNL, Regular, CTA Bilaterally Gastrointestinal: Yes: WNL, Normal Bowel Sounds, Soft Labs: CBC, BMP 03/10/17 09:05 03/10/17 09:05 INR, PTT INR 1.28 (0.82-1.09) H 03/07/17 21:00 Problem List - Problems (1) Shortness of breath Assessment/Plan: Probably due to metastatic cancer Cont nebulizers Palliative care consult Code(s): R06.02 - SHORTNESS OF BREATH (2) Uterine cancer Assessment/Plan: As per onco Code(s): C55 - MALIGNANT NEOPLASM OF UTERUS, PART UNSPECIFIED (3) Afib Assessment/Plan: Heart rate controlled Code(s): I48.91 - UNSPECIFIED ATRIAL FIBRILLATION (4) CVA (cerebral infarction) Code(s): I63.9 - CEREBRAL INFARCTION, UNSPECIFIED (5) Hypertension Code(s): I10 - ESSENTIAL (PRIMARY) HYPERTENSION (6) Pulmonary embolism Code(s): I26.99 - OTHER PULMONARY EMBOLISM WITHOUT ACUTE COR PULMONALE Qualifiers:
--- NOTE | 2017-03-10 18:42 | EKG ---
Test Reason : Blood Pressure : / mmHG Vent. Rate : 094 BPM Atrial Rate : 092 BPM P-R Int : 000 ms QRS Dur : 094 ms QT Int : 330 ms P-R-T Axes : 000 005 -47 degrees QTc Int : 412 ms ATRIAL FIBRILLATION WITH FREQUENT ventricular-paced complexes SEPTAL INFARCT , AGE UNDETERMINED ABNORMAL ECG WHEN COMPARED WITH ECG OF 07-MAR-2017 23:06, VENT. RATE HAS DECREASED BY 3 BPM Confirmed by ASHLEE ESCOBAR MD ([id number]) on 03/10/2017 6:42:36 PM Referred By: Confirmed By:ASHLEE ESCOBAR MD
[2017-03-10] MEDS: MIRTAZAPINE 15 MG TABLET (FP) PO SCH (21:09)
[2017-03-11] MEDS: DEXTROSE 5%-0.45% SALINE 1,000 ML IV SCH ×2 (05:58→19:16)
[2017-03-11] MEDS ORDERED: PT OWN MED DRAWER 7, Y5N ONE (10:00)
[2017-03-11] MEDS: METOPROLOL SUCCINATE 25 MG TAB.SR.24H (FP) PO SCH (10:08)
[2017-03-11] MEDS: ASPIRIN 81 MG CHEWABLE TABLETS PO SCH (10:08)
[2017-03-11] MEDS: LETROZOLE 2.5 MG TABLET (FP) PO SCH (10:08)
[2017-03-11] MEDS: amLODIPine BESYLATE 5 MG TABLET (FP) PO SCH (10:08)
[2017-03-11] MEDS: LOSARTAN POTASSIUM 25 MG TABLET PO SCH (10:08)
--- NOTE | 2017-03-11 11:07 | PN ---
Progress Note (short form) - Note Progress Note: PULMONARY Denies shortness of breath or chest pain. No fevers or chills. Last Vital Signs Temp Pulse Resp BP Pulse Ox 99.0 F 94 H 18 129/83 98 03/11/17 10:07 03/11/17 10:07 03/11/17 10:07 03/11/17 10:07 03/10/17 21:00 Gen: NAD, breathing nonlabored Heart: RRR Lung: decreased breath sounds right base Abd: soft, nontender Ext: no edema CBC, BMP 03/10/17 09:05 03/10/17 09:05 Active Medications Amlodipine Besylate (Norvasc -) 5 mg PO DAILY [facility] Last Admin: 03/11/17 10:08 Dose: 5 mg Aspirin (Asa -) 81 mg PO DAILY [facility] Last Admin: 03/11/17 10:08 Dose: 81 mg Dextrose/Sodium Chloride (D5-1/2ns -) 1,000 mls @ 75 mls/hr IV ASDIR [facility] Last Admin: 03/11/17 05:58 Dose: 75 mls/hr Letrozole (Femara -) 2.5 mg PO DAILY [facility] Last Admin: 03/11/17 10:08 Dose: 2.5 mg Losartan Potassium (Cozaar -) 25 mg PO DAILY [facility] Last Admin: 03/11/17 10:08 Dose: 25 mg Metoprolol Succinate (Toprol Xl -) 25 mg PO DAILY [facility] Last Admin: 03/11/17 10:08 Dose: 25 mg Mirtazapine (Remeron -) 7.5 mg PO HS [facility] Last Admin: 03/10/17 21:09 Dose: 7.5 mg Non-Formulary Medication (Linagliptin/Metformin Hcl [Jentadueto 2.5 Mg-1000 Mg Tab]) 0.5 tab PO DAILY [facility] A/P Metastatic Endometrial Cancer Lung Nodules/Mets Pulmonary Embolism Pleural Effusion Atrial Fibrillation h/o CVA HTN - continue anticoagulation - pt asymptomatic at this time, given underlying disease and need for anticoagulation,would hold off on thoracentesis unless pt becomes symptomatic - O2 as needed - can be discharged to SNF or hospice from pulmonary standpoint
--- NOTE | 2017-03-11 21:03 | PN ---
Progress Note, Physician - Current Medication List Current Medications: Active Medications Amlodipine Besylate (Norvasc -) 5 mg PO DAILY [facility] Last Admin: 03/11/17 10:08 Dose: 5 mg Aspirin (Asa -) 81 mg PO DAILY [facility] Last Admin: 03/11/17 10:08 Dose: 81 mg Dextrose/Sodium Chloride (D5-1/2ns -) 1,000 mls @ 75 mls/hr IV ASDIR [facility] Last Admin: 03/11/17 19:16 Dose: 75 mls/hr Letrozole (Femara -) 2.5 mg PO DAILY [facility] Last Admin: 03/11/17 10:08 Dose: 2.5 mg Losartan Potassium (Cozaar -) 25 mg PO DAILY [facility] Last Admin: 03/11/17 10:08 Dose: 25 mg Metoprolol Succinate (Toprol Xl -) 25 mg PO DAILY [facility] Last Admin: 03/11/17 10:08 Dose: 25 mg Mirtazapine (Remeron -) 7.5 mg PO HS [facility] Last Admin: 03/10/17 21:09 Dose: 7.5 mg Non-Formulary Medication (Linagliptin/Metformin Hcl [Jentadueto 2.5 Mg-1000 Mg Tab]) 0.5 tab PO DAILY [facility] - Objective Vital Signs: Vital Signs Temperature 97.7 F 03/11/17 18:00 Pulse Rate 90 03/11/17 18:00 Respiratory Rate 18 03/11/17 18:00 Blood Pressure 120/64 03/11/17 18:00 O2 Sat by Pulse Oximetry (%) 98 03/11/17 09:00 Labs: CBC, BMP 03/10/17 09:05 03/10/17 09:05 INR, PTT INR 1.28 (0.82-1.09) H 03/07/17 21:00 Problem List - Problems (1) Shortness of breath Code(s): R06.02 - SHORTNESS OF BREATH (2) Uterine cancer Code(s): C55 - MALIGNANT NEOPLASM OF UTERUS, PART UNSPECIFIED (3) Afib Code(s): I48.91 - UNSPECIFIED ATRIAL FIBRILLATION (4) CVA (cerebral infarction) Code(s): I63.9 - CEREBRAL INFARCTION, UNSPECIFIED (5) Hypertension Code(s): I10 - ESSENTIAL (PRIMARY) HYPERTENSION (6) Pulmonary embolism Code(s): I26.99 - OTHER PULMONARY EMBOLISM WITHOUT ACUTE COR PULMONALE Qualifiers:
[2017-03-11] MEDS: MIRTAZAPINE 15 MG TABLET (FP) PO SCH (21:16)
[2017-03-12] MEDS: DEXTROSE 5%-0.45% SALINE 1,000 ML IV SCH ×3 (06:05→19:01)
[2017-03-12] MEDS ORDERED: PT OWN MED DRAWER 7, Y5N ONE (09:56)
[2017-03-12] MEDS: METOPROLOL SUCCINATE 25 MG TAB.SR.24H (FP) PO SCH (09:57)
[2017-03-12] MEDS: LETROZOLE 2.5 MG TABLET (FP) PO SCH (09:58)
[2017-03-12] MEDS: ASPIRIN 81 MG CHEWABLE TABLETS PO SCH (09:58)
[2017-03-12] MEDS: LOSARTAN POTASSIUM 25 MG TABLET PO SCH (09:58)
[2017-03-12] MEDS: amLODIPine BESYLATE 5 MG TABLET (FP) PO SCH (09:58)
--- NOTE | 2017-03-12 13:17 | PN ---
Progress Note (short form) - Note Progress Note: PULMONARY Intermittent shortness of breath but not significant. No fevers or chills. Last Vital Signs Temp Pulse Resp BP Pulse Ox 98.3 F 98 H 18 130/72 96 03/12/17 10:00 03/12/17 10:00 03/12/17 10:00 03/12/17 10:00 03/12/17 09:00 Gen: NAD, breathing nonlabored Heart: RRR Lung: decreased breath sounds right base Abd: soft, nontender Ext: no edema CBC, BMP 03/10/17 09:05 03/10/17 09:05 Active Medications Amlodipine Besylate (Norvasc -) 5 mg PO DAILY [facility] Last Admin: 03/12/17 09:58 Dose: 5 mg Aspirin (Asa -) 81 mg PO DAILY [facility] Last Admin: 03/12/17 09:58 Dose: 81 mg Dextrose/Sodium Chloride (D5-1/2ns -) 1,000 mls @ 75 mls/hr IV ASDIR [facility] Last Admin: 03/12/17 06:05 Dose: 75 mls/hr Letrozole (Femara -) 2.5 mg PO DAILY [facility] Last Admin: 03/12/17 09:58 Dose: 2.5 mg Losartan Potassium (Cozaar -) 25 mg PO DAILY [facility] Last Admin: 03/12/17 09:58 Dose: 25 mg Metoprolol Succinate (Toprol Xl -) 25 mg PO DAILY [facility] Last Admin: 03/12/17 09:57 Dose: 25 mg Mirtazapine (Remeron -) 7.5 mg PO HS [facility] Last Admin: 03/11/17 21:16 Dose: 7.5 mg Non-Formulary Medication (Linagliptin/Metformin Hcl [Jentadueto 2.5 Mg-1000 Mg Tab]) 0.5 tab PO DAILY [facility] A/P Metastatic Endometrial Cancer Lung Nodules/Mets Pulmonary Embolism Pleural Effusion Atrial Fibrillation h/o CVA HTN - continue anticoagulation - pt asymptomatic at this time, given underlying disease and need for anticoagulation,would hold off on thoracentesis unless pt becomes symptomatic - O2 as needed - can be discharged to SNF or hospice from pulmonary standpoint
[2017-03-12] MEDS: MIRTAZAPINE 15 MG TABLET (FP) PO SCH (21:36)
--- NOTE | 2017-03-12 22:22 | PN ---
Progress Note, Physician History of Present Illness: No new complaints - Current Medication List Current Medications: Active Medications Amlodipine Besylate (Norvasc -) 5 mg PO DAILY [facility] Last Admin: 03/12/17 09:58 Dose: 5 mg Aspirin (Asa -) 81 mg PO DAILY [facility] Last Admin: 03/12/17 09:58 Dose: 81 mg Dextrose/Sodium Chloride (D5-1/2ns -) 1,000 mls @ 75 mls/hr IV ASDIR [facility] Last Admin: 03/12/17 19:01 Dose: 75 mls/hr Letrozole (Femara -) 2.5 mg PO DAILY [facility] Last Admin: 03/12/17 09:58 Dose: 2.5 mg Losartan Potassium (Cozaar -) 25 mg PO DAILY [facility] Last Admin: 03/12/17 09:58 Dose: 25 mg Metoprolol Succinate (Toprol Xl -) 25 mg PO DAILY [facility] Last Admin: 03/12/17 09:57 Dose: 25 mg Mirtazapine (Remeron -) 7.5 mg PO HS [facility] Last Admin: 03/12/17 21:36 Dose: 7.5 mg - Objective Vital Signs: Vital Signs Temperature 98.4 F 03/12/17 20:37 Pulse Rate 93 H 03/12/17 20:37 Respiratory Rate 18 03/12/17 20:38 Blood Pressure 118/66 03/12/17 20:37 O2 Sat by Pulse Oximetry (%) 94 L 03/12/17 20:38 Constitutional: Yes: No Distress Neck: Yes: WNL, Supple Cardiovascular: Yes: WNL, Regular Rate and Rhythm Respiratory: Yes: WNL, Regular, CTA Bilaterally Gastrointestinal: Yes: WNL, Normal Bowel Sounds, Soft Labs: CBC, BMP 03/10/17 09:05 03/10/17 09:05 INR, PTT INR 1.28 (0.82-1.09) H 03/07/17 21:00 Problem List - Problems (1) Shortness of breath Assessment/Plan: Probably due to metastatic cancer Cont nebulizers DC planning for am to [facility] Code(s): R06.02 - SHORTNESS OF BREATH (2) Uterine cancer Code(s): C55 - MALIGNANT NEOPLASM OF UTERUS, PART UNSPECIFIED (3) Afib Code(s): I48.91 - UNSPECIFIED ATRIAL FIBRILLATION (4) CVA (cerebral infarction) Code(s): I63.9 - CEREBRAL INFARCTION, UNSPECIFIED (5) Hypertension Code(s): I10 - ESSENTIAL (PRIMARY) HYPERTENSION (6) Pulmonary embolism Code(s): I26.99 - OTHER PULMONARY EMBOLISM WITHOUT ACUTE COR PULMONALE Qualifiers:
[2017-03-13] MEDS: DEXTROSE 5%-0.45% SALINE 1,000 ML IV SCH (06:26)
[2017-03-13] MEDS ORDERED: PT OWN MED DRAWER 7, Y5N ONE (09:28)
[2017-03-13] MEDS: METOPROLOL SUCCINATE 25 MG TAB.SR.24H (FP) PO SCH (09:30)
[2017-03-13] MEDS: amLODIPine BESYLATE 5 MG TABLET (FP) PO SCH (09:30)
[2017-03-13] MEDS: ASPIRIN 81 MG CHEWABLE TABLETS PO SCH (09:30)
[2017-03-13] MEDS: LOSARTAN POTASSIUM 25 MG TABLET PO SCH (09:30)
[2017-03-13] MEDS: LETROZOLE 2.5 MG TABLET (FP) PO SCH (09:34)
--- NOTE | 2017-03-13 14:36 | PN ---
Progress Note (short form) - Note Progress Note: PULMONARY Denies shortness of breath or chest pain. c/o poor appetite. No fevers or chills. Last Vital Signs Temp Pulse Resp BP Pulse Ox 99.1 F 90 20 117/61 95 03/13/17 14:09 03/13/17 14:09 03/13/17 14:09 03/13/17 14:09 03/13/17 08:44 Gen: NAD, breathing nonlabored Heart: RRR Lung: decreased breath sounds right base Abd: soft, nontender Ext: no edema CBC, BMP 03/10/17 09:05 03/10/17 09:05 Active Medications Amlodipine Besylate (Norvasc -) 5 mg PO DAILY [facility] Last Admin: 03/13/17 09:30 Dose: 5 mg Aspirin (Asa -) 81 mg PO DAILY [facility] Last Admin: 03/13/17 09:30 Dose: 81 mg Dextrose/Sodium Chloride (D5-1/2ns -) 1,000 mls @ 75 mls/hr IV ASDIR [facility] Last Admin: 03/13/17 06:26 Dose: 75 mls/hr Letrozole (Femara -) 2.5 mg PO DAILY [facility] Last Admin: 03/13/17 09:34 Dose: 2.5 mg Losartan Potassium (Cozaar -) 25 mg PO DAILY [facility] Last Admin: 03/13/17 09:30 Dose: 25 mg Metoprolol Succinate (Toprol Xl -) 25 mg PO DAILY [facility] Last Admin: 03/13/17 09:30 Dose: 25 mg Mirtazapine (Remeron -) 7.5 mg PO HS [facility] Last Admin: 03/12/17 21:36 Dose: 7.5 mg A/P Metastatic Endometrial Cancer Lung Nodules/Mets Pulmonary Embolism Pleural Effusion Atrial Fibrillation h/o CVA HTN - continue anticoagulation - pt asymptomatic at this time, given underlying disease and need for anticoagulation,would hold off on thoracentesis unless pt becomes symptomatic - O2 as needed - can be discharged to SNF or hospice from pulmonary standpoint
[2017-03-13 18:22] VITALS: BP 105/59; PULSE 94; TEMP 99.3
== END 2017-03-13 19:35 | DRG 755 ==
LOC: JER 19:24 → JERBED 03-08 02:07 → UNDOADMIN 03-08 02:17 → JERBED 03-08 02:17 → J7W 03-08 11:24
PROVIDERS: ADMIT Internal Medicine; ATTEND Internal Medicine
DX: C55 Malignant neoplasm of uterus, part unspecified (principal); C78.00 Secondary malignant neoplasm of unspecified lung; J98.11 Atelectasis; J90 Pleural effusion, not elsewhere classified; I48.91 Unspecified atrial fibrillation; I10 Essential (primary) hypertension; D64.9 Anemia, unspecified; E78.5 Hyperlipidemia, unspecified; E11.9 Type 2 diabetes mellitus without complications; N93.8 Other specified abnormal uterine and vaginal bleeding; R91.1 Solitary pulmonary nodule; Z86.73 Personal history of transient ischemic attack (TIA), and cerebral infarction without residual deficits; Z86.711 Personal history of pulmonary embolism; Z95.0 Presence of cardiac pacemaker; Z79.84 Long term (current) use of oral hypoglycemic drugs
CPT/HCPCS: 36415; 70450-TC; 71010-TC; 71275-TC; 80053; 81003; 81015; 84484; 85025; 85610; 85730; 87086; 93005; 93010; 97116-GP; 97162-GP; 99285-25